=== PATIENT | female | born 1945 | race Caucasian/White ===

== ENCOUNTER → 2019-07-06 07:44 | Outpatient (CLI) | payer MEDICARE, OTHER, SELFPAY ==
--- NOTE | ~2019-07-06 | MR_ITS ---
EXAMINATION: MR shoulder LT wo con DATE: 07/06/2019 08:35 INDICATION: Left shoulder pain. TECHNIQUE: Magnetic resonance imaging (MRI) of the left shoulder was performed without intravenous co ntrast. Sequences included axial PD-weighted FS FSE, coronal oblique PD-weighted FS FSE and T2-weight ed FS FSE, and sagittal oblique T2-weighted FS FSE and T1-weighted FSE. COMPARISON: Left shoulder radiographs 03/10/2019 FINDINGS: Coracoacromial arch: The acromion undersurface is curved in morphology (type II). Subacromial spurring is noted. There is moderate acromioclavicular joint osteoarthritis including inferiorly directed osteophytes. There is m oderate subacromial/subdeltoid bursitis. Rotator cuff: There is severe supraspinatus and infraspinatus tendinopathy. There is a full-thickness tear of supra spinatus tendon measuring 7 mm anterior to posterior by 12 mm proximal to distal. There is a bursal s ided tear of infraspinatus tendon measuring 2.5 cm proximal to distal by 3 mm anterior to posterior b y 20% tendon thickness including fluid tracking along the myotendinous junction. Teres minor tendon i s normal. There is moderate distal subscapularis tendinopathy. There is no asymmetric fatty atrophy o f the rotator cuff muscle bellies. Biceps tendon and glenoid labrum: Biceps tendon is in bicipital groove. There is a tear of superior labrum from 11:00 to 12:00 (SLAP te ar) Fluid: There is no glenohumeral joint effusion. Bones/cartilage: Glenoid cartilage is normal. Humeral head cartilage is normal. IMPRESSION: 1. Full-thickness rotator cuff tear. 2. SLAP tear. 3. Moderate acromioclavicular joint osteoarthritis. 4. Moderate subacromial/subdeltoid bursitis. Reviewed, dictated and finalized at location A.
== END ==
PROVIDERS: Visit Provider Orthopaedic Surgery
DX: S43.432A Superior glenoid labrum lesion of left shoulder, initial encounter (principal); X58.XXXA Exposure to other specified factors, initial encounter; M19.012 Primary osteoarthritis, left shoulder; M75.52 Bursitis of left shoulder
CPT/HCPCS: 73221

== ENCOUNTER 2019-11-07 10:56 | Outpatient (CLI) | payer MEDICARE, OTHER, SELFPAY ==
--- NOTE | ~2019-11-07 | XR_ITS ---
EXAMINATION: XR chest 2V DATE: 11/07/2019 11:32 INDICATION: Hypertension TECHNIQUE: Frontal and lateral views of the chest are obtained COMPARISON: 10/27/2016 FINDINGS: The lungs are free of acute opacities. There is no pleural effusion or pneumothorax. The ca rdiomediastinal silhouette is normal. There is mild thoracic spondylosis. Cholecystectomy clips are n oted. IMPRESSION: 1. No acute cardiopulmonary abnormality. Reviewed, dictated and finalized at location A.
--- NOTE | 2019-11-07 10:59 | ECG_ITS ---
Measurements Intervals [place] Rate: 71 P: 47 IN: 159 QRS: 26 QRSD: 84 T: 26 QT: 353 QTc: 385 Interpretive Statements SINUS RHYTHM DELAYED PRECORDIAL R/S TRANSITION BASELINE ARTIFACT- I, III, AVR, AVL, AVF BORDERLINE ECG Electronically Signed On 11-07-2019 11:58:12 CDT by Ronan Juares D.O.
[2019-11-07 11:55] LABS: Anion Gap 9.9 mmol/L (7-16); Blood Urea Nitrogen 27 mg/dL (7-17); Calcium 10.5 mg/dL (8.4-10.2); Carbon Dioxide 33 mmol/L (22-30); Chloride 101 mmol/L (98-107); Estimated Glomerular Filt Rate 54; Glucose 104 mg/dL (65-105); Potassium 4.9 mmol/L (3.4-5.0); Sodium 139 mmol/L (137-145)
== END 2019-11-07 10:57 | disposition home or self-care (01) ==
LOC: ANHSURGERY 10:59
PROVIDERS: Anesthesiology; PCP Family Medicine; Visit Provider Orthopaedic Surgery
DX: Z01.818 Encounter for other preprocedural examination (principal); I10 Essential (primary) hypertension; M75.102 Unspecified rotator cuff tear or rupture of left shoulder, not specified as traumatic
CPT/HCPCS: 36415; 71046; 80048; 87070; 93005

== ENCOUNTER 2019-11-11 02:52 | Outpatient (CLI) | payer MEDICARE, OTHER, SELFPAY ==
[2019-11-11 18:58] LABS: SARS-CoV-2 RNA PCR Negative
== END 2019-11-11 02:53 | disposition home or self-care (01) ==
LOC: ANHCOVIDDT 02:52
PROVIDERS: PCP Family Medicine; Visit Provider Orthopaedic Surgery
DX: Z01.812 Encounter for preprocedural laboratory examination (principal); Z11.59 Encounter for screening for other viral diseases
CPT/HCPCS: 87635; C9803; U0003

== ENCOUNTER 2019-11-14 00:22 | Day surgery (SDC) | payer MEDICARE, OTHER, SELFPAY ==
[2019-11-07 08:38] VITALS: BMI 25.4
--- NOTE | 2019-11-11 11:25 | HP_ITS ---
DATE OF SERVICE: ADMIT DIAGNOSIS: Medium to large size rotator cuff tear, left shoulder. HISTORY OF PRESENT ILLNESS: The patient is a 74-year-old female patient of Dr. Scott, who presents today for arthroscopy of the left shoulder, mini open rotator cuff repair, possible biceps tenotomy. She injured her shoulder initially approximately 11 months ago and has been having continued pain in the shoulder. She had an MRI scan in July of this year, which demonstrated a moderately large tear of the supraspinatus and infraspinatus tendon. She did have a cortisone injection prior to the MRI. She has also gone through physical therapy and has been taking anti-inflammatories, all without improvement of her symptoms. She is somewhat miserable on a daily basis with pain in her shoulder and feels at this point she would rather proceed with rotator cuff repair, rather continue nonsurgical treatment. PAST MEDICAL HISTORY: She has had rotator cuff repair done on the right shoulder in the past. She has had carpal tunnel surgery done. The gallbladder has been removed and she has had a partial knee replacement in 2012. CURRENT MEDICATIONS: She takes a baby aspirin daily. She takes Aleve daily. Clonazepam 1 mg 2 tablets q.h.s., levothyroxine 100 mcg daily, losartan/HCTZ 100/12.5 daily, omeprazole 20 mg daily, Ropinirole 0.25 mg. ALLERGIES: SHE IS ALLERGIC TO SULFA DRUGS, WHICH CAUSED HER FACIAL SWELLING. FAMILY HISTORY: Significant for kidney disease and hypertension disorder. SOCIAL HISTORY: She is a nonsmoker. PHYSICAL EXAMINATION: VITAL SIGNS: She is 4 feet 10 inches, 138 pounds. Other vital signs per nursing on the morning of surgery. HEENT: Grossly normal. LUNGS: Clear bilaterally. HEART: Regular rate and rhythm. EXTREMITIES: Her left shoulder, there is elevation of 150, external rotation is 60, internal rotation is to T10. She has some degree of protracted shoulders and upper thoracic kyphosis. Normal sensation of the left upper extremity. No redness or warmth about the left shoulder. Neck range of motion causes no discomfort. Negative Spurling's maneuver. 2+ radial pulse. She has [id number] weakness with abduction with significant pain and mild weakness with external rotation. The AC joint is nontender. IMAGING DATA: MRI scan again shows a moderate to large full-thickness tear involving the supraspinatus and also the infraspinatus. IMPRESSION: The patient has a full-thickness rotator cuff tear of left shoulder that continues to be very symptomatic for her. She feels this point she would like to proceed with repair. Surgical procedure as well as risks and complications were discussed. All questions were answered. We will proceed. She will avoid her aspirin and any other ibuprofen products 1 week prior to surgery. She will see Dr. Scott for presurgical clearance. Dr. Coker did discuss with her given the size of the tear, we may need to use a patch to augment the repair and this will be determined at the time of surgery. Also, her biceps is significantly frayed. We will do a biceps tenotomy rather than a tenodesis. Aime I MT: Reilly
[2019-11-14] VITALS (12 sets, daily range): BP systolic 93–181; BP diastolic 42–107; PULSE 66–104; RESP 10–20; TEMP 36.1–36.2; O2SAT 95–100
[2019-11-14] MEDS: ACETAMINOPHEN 500 MG TABLET 1000 MG PO (06:30)
[2019-11-14] MEDS: LACTATED RINGERS 1,000 ML 30 ML IV CONT ×2 (06:35→09:58)
--- NOTE | 2019-11-14 06:36 | WPDANESEPPF ---
Anes - Initial Pre Proc Eval Procedure: Operation Date: 11/14/19 07:30 Proposed Procedures p Left Shoulder Arthroscopy, Mini Open Rotator Cuff Repair, Possible Biceps Tenotomy, Possible Arthrex Arthroflex Patch, Proceed As Indicated - Farhan Buck MD Date/Time: 11/14/19 06:36 Surgeon: Farhan Buck MD Pre Op Diagnosis: Medium/Large Left Rotator Cuff Tear/ AC Arthritis Patient Data Age: 74 Gender: F Height: 5 ft Weight: 63.3 kg Allergies Allergy/AdvReac Type Severity Reaction Status Date / Time Iodinated Contrast Media Allergy Intermediate HIVES, Verified 11/07/19 09:11 TONGUE SWELLED amoxicillin Allergy Unknown Itching Verified 11/07/19 08:19 simvastatin Allergy Unknown severe Verified 11/07/19 08:19 muscle cramps Sulfa (Sulfonamide Allergy Unknown tongue Verified 11/07/19 08:19 Antibiotics) swelling Home Medications Medication Instructions Recorded Confirmed Type cholecalciferol (vitamin D3) 25 1,000 unit PO DAILY 03/09/19 11/07/19 History mcg (1,000 unit) capsule melatonin 10 mg capsule 10 mg PO HS 03/09/19 11/07/19 History omeprazole 40 mg capsule,delayed 40 mg PO DAILY 03/09/19 11/07/19 History release pyridoxine (vitamin B6) 100 mg 100 mg PO DAILY 03/09/19 11/07/19 History tablet estradiol 1 mg tablet 1 mg PO DAILY #90 tablet 06/07/19 11/07/19 Rx tramadol 50 mg tablet 100 mg PO Q6H PRN #60 tablet 07/22/19 11/07/19 Rx gabapentin 300 mg capsule 600 mg PO .QHS #180 cap 08/10/19 11/07/19 Rx levothyroxine 100 mcg tablet 100 mcg PO DAILY #90 tablet 10/03/19 11/07/19 Rx aspirin [Adult Low Dose Aspirin] 81 mg PO DAILY 11/07/19 11/07/19 History budesonide-formoterol [Symbicort] 2 puff INHALATION PRN PRN 11/07/19 11/07/19 History calcium carbonate-vitamin D3 1 tablet PO DAILY 11/07/19 11/07/19 History [Calcium 600 + D(3)] fenofibrate 160 mg PO HS 11/07/19 11/07/19 History losartan-hydrochlorothiazide 1 tablet PO DAILY 11/07/19 11/07/19 History magnesium 1,000 mg PO HS 11/07/19 11/07/19 History clonazepam 1 mg tablet 2 mg PO HS #60 tablet 11/08/19 Rx Patient hx anesthesia problems: post op nausea/vomiting Family hx anesthesia problems: none PMFSH Past Medical History Medical History Asthma Essential (primary) hypertension Hypothyroidism (acquired) Mixed hyperlipidemia Restless legs syndrome Surgical History Surgical History H/O arthroscopy of right knee History of appendectomy History of carpal tunnel release History of knee replacement Hx of cholecystectomy Hx of tonsillectomy Family History Family History Mother Family history of glaucoma Hypertension Family history of kidney disease Cerebrovascular accident Family history of coronary artery disease Sibling Malignant neoplasm of prostate Family history of coronary artery disease Family history of cardiovascular disease Family history of kidney disease Grandparent Family history of coronary artery disease Family history of cardiovascular disease Social History Social History Smoking status: Never smoker Alcohol intake: never Living arrangements: with family Spiritual care concerns: No Anes - Eval Final PreProcedure Day of Procedure 11/14/19 06:36 Patient weight: overweight Heart: regular rate and rhythm Lungs: clear to auscultation Airway: Mallampati scale class 1 Neurological: alert and oriented Last oral intake: >/= 8 hours ASA classification: III Emergent: no Anesthetic plan: proceed Anesthesia type and monitoring: general ETT and standard monitoring Informed Consent: The patient's anesthetic plan and its attendant risks and benefits were discussed with the patient/family/POA. Questions were solicited and answers provided to the satisfaction o
--- NOTE | 2019-11-14 07:09 | WPDHPUPDATE1 ---
History and Physical Update Update Date/Time: 11/14/19 07:09 History and Physical has been reviewed, including an updated exam of the patient. There are NO changes in the patient's condition. Risks, benefits, and alternatives have been discussed and questions answered. Patient agrees to proceed with procedure.
--- NOTE | 2019-11-14 07:14 | WPDHPUPDATE1 ---
History and Physical Update Update Date/Time: 11/14/19 07:14 History and Physical has been reviewed, including an updated exam of the patient. There are NO changes in the patient's condition. Risks, benefits, and alternatives have been discussed and questions answered. Patient agrees to proceed with procedure.
[2019-11-14] MEDS: ceFAZolin 2 GM/D5W 50 ML 2 GM/50 ML BAG IVPB (07:29)
--- NOTE | 2019-11-14 07:49 | WPDANESPNB ---
Anes - Peripheral Nerve Block Date/Time: 11/14/19 07:49 I have discussed with the patient/family/POA the placement of a peripheral nerve block for post-operative pain management, including associated risks, benefits, complications, and side effects. Alternative methods of post-operative analgesia were detailed. Questions were solicited and answers provided to the satisfaction of the patient/family/POA. Time-Out: A pre-procedural Time-Out was completed immediately before starting the procedure and confirmed: Patient Identification, Site, Procedure, Patient Position and the Availability of Requisite Equipment. Clinical Indications: Acute post-operative pain management requested by the operative surgeon. Nerve Block Insertion Note Anes-nerve block: interscalene left Patient position: other (sitting) Skin prep: chlorhexidine Needle: 22 gauge, stimulating, insulated echogenic needle. Needle length: 50 mm Technique: nerve stimulation lost at (mA) (0.3) and ultrasound Technique comment: mid 1mg,fent 50mcg Injectate: bupivacaine 0.5% with epi 5 mcg/ml (30ml) and dexamethasone (mg) (4) Observations: tolerated well Complications: none Procedure start time:: 714 Procedure end time:: 721
[2019-11-14] MEDS: ceFAZolin SODIUM 1 GM VIAL IRRIGATION ×3 (08:19→09:43)
[2019-11-14] MEDS: ceFAZolin SODIUM 1 GM VIAL IV PUSH (09:40)
--- NOTE | 2019-11-14 09:57 | PM.PROC ---
Procedure Note - Detailed Date of procedure: 11/14/19 Pre-op diagnosis: Medium/Large Left Rotator Cuff Tear/ AC Arthritis Post-op diagnosis: same Procedure performed: Arthroscopic biceps tenotomy and arthroscopic acromioplasty mini open rotator cuff repair left shoulder Description of procedure: patient was brought to the operating room and general anesthesia was administered. She received an interscalene block preoperatively. She was placed in the beach chair position the head secured in neutral position. The left shoulder was prepped draped usual fashion all the skin covered with Ioban except the top portion. She received weight based vancomycin 2 g of Ancef preoperatively. A posterior arthroscopic portal was placed. She did have some chondromalacia of the superomedial aspect of the humeral head. The articular surface on the glenoid looked normal. There was partial tearing of the intra-articular portion of the long head of the biceps with enlargement as it entered the bicipital groove and I felt this represented a significant pain generator. An anterior superior portal was placed and with the 3.5 full radius shaver labral tearing was debrided and a biceps tenotomy was performed adjacent to the glenoid insertion completing this with the arthroscopic scissors and the long head of the biceps migrated distally. The tear of the supraspinatus and upper infraspinatus was noted. It was torn from the supraspinatus footprint of the greater tuberosity and mildly retracted medially. Arthroscope was placed in the subacromial space. There is quite a bit of synovitis and bursal inflammation there and a bursectomy was performed after placing an anterior outflow portal and hemostasis achieved with the ArthroCare. The CA ligament was ablated from the anterior surface of the undersurface the acromion and there is a small spur there that was conservatively debrided with the less aggressive acromion eyes are bur on reverse. The remaining skin was covered with Ioban and outer gloves changed. A 1/2 inch longitudinal incision was made from the superior aspect of anterior acromion extending distally and the tendinous raphe between anterior and middle heads of the deltoid identified and incised. She had an overhanging acromion and to expose the tear appropriately 1 cm of anterior deltoid was elevated off the anterior acromion. Self-retaining retractor was placed. The tear was inspected. It was an L-shaped tear or a hockey stick shaped tear with a transverse component from the anterior aspect of the greater tuberosity extending posteriorly approximately 15 mm and then angling posteromedially for another 5 or 6 mm. This last portion was a tendon split. The 1st Arthrex suture tapes was placed in the supraspinatus tendon and we freed the sub acromial adhesions with a Darrach elevator. This improved the mobilization of the tendon which was excellent and a could be brought well past the insertion site. A 2nd suture tape was placed and using the [employer] suture Passer to obtain a 16 mm bite and this was paid placed about 9 mm posterior to the 1st suture and we used a 2. Ethibond to shuttle these 2 stitches through the greater tuberosity. Prior to this we had carefully prepared the tuberosity scraping the clean of all residual soft tissues with a clean 15 blade scalpel and made taking multiple jeremie holes and a 2 mm bur adjacent to articular surface. Who with the 2 suture tapes tied this restored anatomic repositioning of the rotator cuff. We then used multiple a 2. Ethibond placed in simple fashion in a convergent pattern to create a spherical smooth repair. Approximately 6 additional 2. Ethibond so were placed. The arm was taken through range of motion in the adequacy of the acromioplasty confirmed. The wound was irrigated with Ancef solution. 2 number 2. Vicryls were passed through the anterior acromion and the deltoid was securely reattached to the anterior acromion and the split closed wi
[2019-11-14] MEDS: ONDANSETRON INJ 4 MG/2 ML VIAL IV PUSH (10:44)
[2019-11-14] MEDS: diphenhydrAMINE HCl INJ 50 MG/ML VIAL 25 MG IV PUSH (11:00)
== END 2019-11-14 13:47 | disposition home or self-care (01) ==
PROVIDERS: PCP Family Medicine; Visit Provider Orthopaedic Surgery
PROC: (CPT 29805; principal; 2019-11-14 07:30)
DX: S46.012A Strain of muscle(s) and tendon(s) of the rotator cuff of left shoulder, initial encounter (principal); M19.012 Primary osteoarthritis, left shoulder; X58.XXXA Exposure to other specified factors, initial encounter; I10 Essential (primary) hypertension; E78.2 Mixed hyperlipidemia; E03.9 Hypothyroidism, unspecified; J45.909 Unspecified asthma, uncomplicated; G25.81 Restless legs syndrome; Z79.82 Long term (current) use of aspirin; G89.18 Other acute postprocedural pain
CPT/HCPCS: 23410; 29823; 64415; A4565; A9270; J0690; J1100; J1200; J2250; J2370; J2405; J2704; J2710; J3010; J3370; J7120

== ENCOUNTER 2020-01-31 12:53 | Outpatient (CLI) | payer MEDICARE, OTHER, SELFPAY ==
--- NOTE | ~2020-01-31 | MR_ITS ---
EXAMINATION: MR shoulder LT w con DATE: 01/31/2020 14:39 INDICATION: Left shoulder pain and weakness TECHNIQUE: Magnetic resonance imaging (MRI) of the left shoulder was performed following intra-artic ular gadolinium contrast injection and without intravenous contrast. Details of the glenohumeral join t injection have been dictated separately. Sequences included axial T2-weighted FS FSE, axial T1-david ghted FS FSE, coronal oblique T1-weighted FS FSE, coronal oblique T2-weighted FSE, sagittal T2-weight ed FS FSE, sagittal T1-weighted FSE, and ABER (abduction external rotation) T1-weighted FS FSE. COMPARISON: 07/06/2019 FINDINGS: Coracoacromial arch: The acromion undersurface is curved in morphology (type II). The acromion however now appears thinned when compared with the prior study with foci of susceptibility artifact along its anterior and infer ior margins consistent with prior acromioplasty including debridement of the acromial side of the cor acoacromial ligament. Moderate acromioclavicular osteoarthritis. Rotator cuff: Severe supraspinatus and moderate infraspinatus tendinopathy. Changes of interval repair of the previ ously noted supraspinatus and infraspinatus tendon tears with suture anchors along the superior and m iddle facets of the greater tuberosity. There is mild attenuation of the distal supraspinatus tendon but without evident detachment of the repair. Although no full-thickness tear defect is appreciated t here is extension of injected contrast through the repaired tear with the injected intra-articular co ntrast extending into the subacromial/subdeltoid bursa. Moderate subscapularis tendinopathy without d iscrete tear. The teres minor tendon is normal. No asymmetric rotator cuff muscle atrophy. Biceps tendon, glenoid labrum and glenohumeral cartilage: Biceps tenotomy with resection of the tendon from its glenoid anchor and retraction of the tenotomy m argin to the caudal aspect of the intertubercular groove. Partial-thickness cartilage loss with mild chondral surface regularity along the apex of the humeral head. Glenoid cartilage appears normal. Bones and other: Bone alignment is normal. No fracture or pathologic marrow replacing process. Postoperative changes p reviously detailed. Additional foci of susceptibility artifact along a longitudinal likely surgical s car extending between the anterior and central heads of the deltoid muscle. IMPRESSION: 1. Postoperative changes of supraspinatus and infraspinatus tendon tear repair with mild attenuation of the distal supraspinatus tendon and with full-thickness perforation allowing communication of cont rast between the joint space and the subacromial/subdeltoid bursa but without evident detachment of t he repair or measurable full-thickness tear defect. 2. Biceps tenotomy with retraction of the tenotomy margin to the caudal aspect of the intertubercular groove. 3. Moderate acromioclavicular and minimal glenohumeral osteoarthritis. Reviewed, dictated and finalized at location B. IMPRESSION: 1. Postoperative changes of supraspinatus and infraspinatus tendon tear repair with mild attenuation of the distal supraspinatus tendon and with full-thicknes s perforation allowing communication of contrast between the joint space and th e subacromial/subdeltoid bursa but without evident detachment of the repair or measurable full-thickness tear defect. 2. Biceps tenotomy with retraction of the tenotomy margin to the caudal aspect of the intertubercular groove. 3. Moderate acromioclavicular and minimal glenohumeral osteoarthritis.
--- NOTE | ~2020-01-31 | XR_ITS ---
EXAMINATION: XR arthrogram shoulder LT DATE: 01/31/2020 13:59 INDICATION: Left shoulder pain after rotator cuff repair. No prior dislocation. TECHNIQUE: A time-out was performed to verify the patient's name, date of , and procedure to b e performed. The procedure including the risks, benefits, and alternatives was discussed with the pat ient. Risks discussed included bleeding and infection. The patient understood the risks and agreed to proceed. The skin overlying the left glenohumeral joint was prepped and draped in usual sterile fash ion. Anesthetic was administered with 1% lidocaine subcutaneously. A 22 G needle was advanced under fluoroscopic guidance into the joint. Subsequently, injectate consisting of 12 mL of 1:200 Multihan ce, 1:4 1% lidocaine, and 1:4 Omnipaque 240 was instilled. The needle was removed and the entry site was cleaned and dressed. There were no immediate complications. Fluoroscopy exposure time was 0.1 m inutes. The total number of images was 2. FINDINGS: Real-time fluoroscopy demonstrates the needle and contrast in the left glenohumeral joint. IMPRESSION: 1. Successful left glenohumeral joint injection of contrast for subsequent MR arthrography. Reviewed, dictated and finalized at location A. IMPRESSION: 1. Successful left glenohumeral joint injection of contrast for subsequent MR a rthrography.
== END 2020-01-31 12:54 | disposition home or self-care (01) ==
PROVIDERS: PCP Family Medicine; Visit Provider Orthopaedic Surgery
DX: M25.512 Pain in left shoulder (principal); Z98.890 Other specified postprocedural states; M19.012 Primary osteoarthritis, left shoulder
CPT/HCPCS: 73040; 73222; A9577; Q9966

== ENCOUNTER 2020-07-12 06:30 | Outpatient (CLI) | payer MEDICARE, OTHER, SELFPAY ==
--- NOTE | ~2020-07-12 | XR_ITS ---
EXAMINATION: XR lumbar spine 2-3V EXAM DATE: 07/12/2020 06:57 INDICATION: Low back pain, inflammation of the sacroiliac joints bilaterally. TECHNIQUE: Lumber spine frontal, lateral, lateral L5-S1 projections for interpretation. Comparison is made to prior examination from 01/08/2016. FINDINGS: There are cholecystectomy clips. There is about 7 mm anterolisthesis L4 on L5 without spon dylolysis suspected. Moderate disc disease at this level, mild to moderate at L3-4 and L5-S1. The piedad tebral bodies are otherwise aligned. There is overall moderate lumbar facet arthropathy. There is mil d symmetric bilateral sacroiliac joint primary osteoarthritis. Paraspinal soft tissue is unremarkabl e. Compared to 2016, mild progression in the spondylolisthesis and spondylosis. IMPRESSION: 1. L4-5 grade 1 anterolisthesis and moderate disc disease. 2. Moderate facet arthropathy 3. Mild sacroiliac osteoarthritis. Reviewed, dictated and finalized at location A.
== END 2020-07-12 06:31 | disposition home or self-care (01) ==
PROVIDERS: PCP Family Medicine; Visit Provider Physician Assistant Medical
DX: M54.5 Low back pain (principal); M46.1 Sacroiliitis, not elsewhere classified; M43.16 Spondylolisthesis, lumbar region; M51.9 Unspecified thoracic, thoracolumbar and lumbosacral intervertebral disc disorder; M47.898 Other spondylosis, sacral and sacrococcygeal region
CPT/HCPCS: 72100

== ENCOUNTER 2020-07-19 10:19 | Outpatient (CLI) | payer MEDICARE, OTHER, SELFPAY ==
--- NOTE | ~2020-07-19 | XR_ITS ---
EXAMINATION: XR lumbar spine bending only DATE: 07/19/2020 10:46 INDICATION: Spondylolisthesis. TECHNIQUE: Flexion and extension lateral views of lumbar spine were obtained. COMPARISON: Lumbar spine radiograph 07/12/2020 FINDINGS: There is 6 mm anterolisthesis of L4 on L5. The spine is hypomobile with flexion and extensi on. Vertebral body heights are normal. There is mildly decreased disc height at L3-L4 and moderately decreased disc height at L4-L5. There are endplate osteophytes at most levels. There is severe facet joint osteoarthritis in lower lumbar spine. Surgical clips in the right upper quadrant are likely fro m cholecystectomy. IMPRESSION: 1. Moderate lumbar spondylosis. 2. Hypomobile spine with flexion and extension. Reviewed, dictated and finalized at location A.
== END 2020-07-19 10:20 | disposition home or self-care (01) ==
PROVIDERS: PCP Family Medicine; Visit Provider Physician Assistant Medical
DX: M47.816 Spondylosis without myelopathy or radiculopathy, lumbar region (principal)
CPT/HCPCS: 72120

== ENCOUNTER 2020-10-16 08:46 | Outpatient (CLI) | payer MEDICARE, OTHER, SELFPAY ==
--- NOTE | ~2020-10-16 | MM_ITS ---
EXAMINATION: MM screening [facility] BI w ranjit HISTORY: Screening mammogram TECHNIQUE: Craniocaudal and mediolateral oblique 3-D tomosynthesis images were obtained and synthetic 2-D images were generated. CAD analysis was submitted and interpreted. COMPARISON: 07/19/2018, 07/07/2017, 06/16/2016 BREAST PARENCHYMAL COMPOSITION: There are scattered areas of fibroglandular density. FINDINGS: There is no evidence of suspicious mass, calcification, or architectural distortion to sugg est malignancy in either breast. There has been no suspicious interval change. IMPRESSION: 1. No mammographic evidence of malignancy. 2. Recommend routine screening mammography in one year. BI-RADS Category 1: Negative Reviewed, dictated and finalized at location A.
== END 2020-10-16 08:47 | disposition home or self-care (01) ==
LOC: ANHIMG 08:48
PROVIDERS: PCP Family Medicine; Visit Provider Family Medicine
DX: Z12.31 Encounter for screening mammogram for malignant neoplasm of breast (principal)
CPT/HCPCS: 77063; 77067

== ENCOUNTER 2020-11-16 08:00 | Outpatient (CLI) | payer MEDICARE, OTHER, SELFPAY ==
--- NOTE | ~2020-11-16 | MR_ITS ---
EXAMINATION: MR hip LT wo con DATE: 11/16/2020 09:57 INDICATION: Left hip pain TECHNIQUE: Magnetic resonance imaging (MRI) of the left hip was performed without intravenous contra st. Sequences included full-field axial PD-weighted FS FSE and T1-weighted FSE, coronal of the pelvis with PD-weighted FS FSE, small field of view of the affected hip with axial PD-weighted FS FSE, sag ittal PD-weighted FS FSE and coronal PD weighted FS FSE. Additional radial T1-weighted FGR oriented o rthogonal to the acetabular rim were obtained for evaluation of the labrum. COMPARISON: None FINDINGS: Bones/labrum/cartilage: Alignment is normal. No fracture, avascular necrosis or pathologic marrow replacing process. There a re several scattered low signal intensity bone islands at the bilateral hips were numerous and larger on the left. Mild left hip osteoarthritis with partial thickness cartilage loss and nonuniform joint space narrowing most prominent along the posterior and posterosuperior aspect of the joint space. Th ere is degenerative tearing of the anterosuperior left acetabular labrum. Marginal osteophyte replaci ng the more posterior superior and posterosuperior left acetabular labrum. Moderate lower lumbar spon dylosis with severe facet osteoarthritis. Fluid: Symmetric physiologic amount of fluid within both hip joints. Soft tissues: Normal and symmetric muscle bulk and signal in the pelvis and visualized proximal thighs. The iliopso as tendons are normal. Mild tendinopathy without discrete tear at the bilateral proximal hamstring te ndons with minimal bilateral ischial bursitis. Mild tendinopathy of the right gluteus minimus and lef t gluteus medius tendons and moderate tendinopathy at the left gluteus minimus tendon without discret e tear. Severe mild bilateral gluteus minimus and left gluteus medius bursitis. The uterus is not carmencita ntified and has likely been surgically resected. There are few diverticula along the sigmoid colon wi thout adjacent inflammatory change to suggest diverticulitis. No pathologically enlarged pelvic/ingui nal lymphadenopathy. IMPRESSION: 1. Mild left hip osteoarthritis with chronic labral degeneration. 2. No bursitis and associated tendinopathy, moderate at the left gluteus minimus and mild at the righ t gluteus minimus, left gluteus medius and bilateral ischial origins of the proximal hamstring tendon s. 3. Moderate lower lumbar spondylosis. Reviewed, dictated and finalized at location A. IMPRESSION: 1. Mild left hip osteoarthritis with chronic labral degeneration. 2. No bursitis and associated tendinopathy, moderate at the left gluteus minimu s and mild at the right gluteus minimus, left gluteus medius and bilateral isch ial origins of the proximal hamstring tendons. 3. Moderate lower lumbar spondylosis.
--- NOTE | ~2020-11-16 | MR_ITS ---
EXAMINATION: MR lumbar spine wo con DATE: 11/16/2020 09:57 INDICATION: Dorsalgia, unspecified. TECHNIQUE: Magnetic resonance imaging (MRI) of the lumbar spine was performed without intravenous con trast. Sequences included sagittal T2-weighted FSE, sagittal T2-weighted FS FSE, sagittal T1-weighted FSE, and axial T2-weighted FSE. COMPARISON: Lumbar spine radiographs 07/19/2020 FINDINGS: There is 4 degrees dextrocurvature of lumbar spine. Vertebral body heights are normal. Ther e is moderately decreased disc height at L3-L4 and L4-L5. The distal spinal cord signal intensity is normal. The conus medullaris is at T12. There is a 19 mm cyst in right kidney. The following disc lev els are specifically discussed: L1-L2: The disc does not extend beyond the endplate margin. There is mild bilateral facet joint osteo arthritis. There is no neural foraminal stenosis. There is no central canal stenosis. L2-L3: There is a right foraminal extrusion. There is mild bilateral facet joint osteoarthritis. Ther e is mild right neural foraminal stenosis. There is no central canal stenosis. L3-L4: The disc is bulging and has an annular fissure. There is severe bilateral facet joint osteoart hritis. There is mild bilateral neural foraminal stenosis. There is mild central canal stenosis. L4-L5: The disc is bulging and has an annular fissure. There is severe bilateral facet joint osteoart hritis. There is mild bilateral neural foraminal stenosis. There is mild central canal stenosis. L5-S1: The disc does not extend beyond the endplate margin. There is severe bilateral facet joint ost eoarthritis. There is mild left neural foraminal stenosis. There is no central canal stenosis. IMPRESSION: 1. Moderate lumbar spondylosis. Reviewed, dictated and finalized at location A.
== END 2020-11-16 08:01 | disposition home or self-care (01) ==
PROVIDERS: PCP Family Medicine; Visit Provider Family Medicine
DX: M17.12 Unilateral primary osteoarthritis, left knee (principal); M70.72 Other bursitis of hip, left hip; M47.817 Spondylosis without myelopathy or radiculopathy, lumbosacral region; M48.07 Spinal stenosis, lumbosacral region
CPT/HCPCS: 72148; 73721

== ENCOUNTER 2020-11-25 08:24 | Emergency (ER) | payer MEDICARE, OTHER, SELFPAY ==
--- NOTE | ~2020-11-25 | XR_ITS ---
XR chest 2V DATE: 11/25/2020 08:45 INDICATION: Cough, shortness of breath. Rhonchi in both lower lobes. TECHNIQUE: 2 views COMPARISON: 11/24/2019 2 view chest FINDINGS: Normal heart size. No hilar or mediastinal enlargement. Aortic arch calcification. Bilateral hyperinflation. No pulmonary infiltrate or consolidation, pleural effusion or pulmonary vas cular congestion or pneumothorax. Diffuse osteopenia. There is resection of the lateral aspect of the right clavicle. Surgical clips sclerotic quadrant, consistent with cholecystectomy. IMPRESSION: Bilateral hyperinflation; no active cardiopulmonary disease No significant change since 11/07/2019 Reviewed, dictated and finalized at location A.
[2020-11-25 08:30] VITALS: BP 125/83; PULSE 95; RESP 24; TEMP 37.3; O2SAT 96
--- NOTE | 2020-11-25 08:36 | ED.URI ---
HPI - URI/Sore Throat General Chief Complaint: Upper Respiratory Infection Stated Complaint: Coughing and shortness of breath Time Seen by Provider: 11/25/20 08:30 Source: patient and RN notes reviewed Mode of arrival: ambulatory Limitations: no limitations History of Present Illness HPI Narrative: 75-year-old female presents to the [facility] with complaints of increasing shortness of breath and increasing productive cough since , 3 days ago. Denies fevers, chest pain, abdominal pain. Has a history of hypertension, asthma, thyroid disease Related Data Home Medications Medication Instructions Recorded Confirmed cholecalciferol (vitamin D3) 25 1,000 unit PO DAILY 03/09/19 11/25/20 mcg (1,000 unit) capsule melatonin 10 mg capsule 10 mg PO HS 03/09/19 11/25/20 omeprazole 40 mg capsule,delayed 40 mg PO DAILY 03/09/19 11/25/20 release pyridoxine (vitamin B6) 100 mg 100 mg PO DAILY 03/09/19 11/25/20 tablet aspirin [Adult Low Dose Aspirin] 81 mg PO DAILY 11/07/19 11/25/20 budesonide-formoterol [Symbicort] 2 puff INHALATION PRN PRN 11/07/19 11/25/20 calcium carbonate-vitamin D3 1 tablet PO DAILY 11/07/19 11/25/20 [Calcium 600 + D(3)] magnesium 1,000 mg PO HS 11/07/19 11/25/20 Allergies Allergy/AdvReac Type Severity Reaction Status Date / Time Iodinated Contrast Media Allergy Intermediate HIVES, Verified 11/25/20 08:30 TONGUE SWELLED amoxicillin Allergy Unknown Itching Verified 11/25/20 08:30 simvastatin Allergy Unknown severe Verified 11/25/20 08:30 muscle cramps Sulfa (Sulfonamide Allergy Unknown tongue Verified 11/25/20 08:30 Antibiotics) swelling Review of Systems Review of Systems: All systems reviewed & are unremarkable except as noted in HPI and below Constitutional: Constitutional: Reports no additional constitutional complaints, Denies chills and Denies fever(s) Eyes: Eyes: Reports no additional eye complaints ENT: Reports system reviewed and no additional complaints, except as documented, Denies dysphagia, Denies dizziness, Denies nasal congestion and Denies sore throat Cardiovascular: Cardiovascular: Reports as per HPI and Reports chest pain (Chest wall pain only when coughing) Respiratory: Respiratory: Reports as per HPI, Reports cough, Reports dyspnea and Denies wheezing Gastrointestinal: Gastrointestinal: Reports no additional gastrointestinal complaints, Denies abdominal pain and Denies vomiting Musculoskeletal: Musculoskeletal: Reports no additional musculoskeletal complaints, Denies back pain and Denies myalgias Integumentary/Breasts: Skin/Breast: Reports system reviewed and no additional complaints, except as docu Neurologic: Reports system reviewed and no additional complaints, except as documented Psychiatric: Psychiatric: Reports no additional psychiatric complaints Allergic/Immunologic: Allergic/Immunologic: Reports no additional allergic/immunologic complaints [facility] Past Medical History Medical History Asthma Essential (primary) hypertension Hypothyroidism (acquired) Mixed hyperlipidemia Restless legs syndrome Surgical History Surgical History H/O arthroscopy of right knee History of appendectomy History of carpal tunnel release History of knee replacement History of repair of rotator cuff Hx of cholecystectomy Hx of tonsillectomy Family History Family History Mother Family history of glaucoma Hypertension Family history of kidney disease Cerebrovascular accident Family history of coronary artery disease Sibling Malignant neoplasm of prostate Family history of coronary artery disease Family history of cardiovascular disease Family history of kidney disease Grandparent Family history of coronary artery disease Family history of cardiovascular disease Social History Social History
== END 2020-11-25 09:05 | disposition home or self-care (01) ==
PROVIDERS: Emergency Provider Nurse Practitioner; PCP Family Medicine
DX: J40 Bronchitis, not specified as acute or chronic (principal); J45.909 Unspecified asthma, uncomplicated; I10 Essential (primary) hypertension; E03.9 Hypothyroidism, unspecified; G25.81 Restless legs syndrome
CPT/HCPCS: 71046; 99213; G0463

== ENCOUNTER 2021-02-25 07:46 | Outpatient (CLI) | payer MEDICARE, OTHER, SELFPAY ==
--- NOTE | 2021-02-25 | ECG_ITS ---
Measurements Intervals [place] Rate: 72 P: 54 DE: 165 QRS: 28 QRSD: 82 T: 37 QT: 353 QTc: 387 Interpretive Statements SINUS RHYTHM BASELINE ARTIFACT- I, II, AVR, AVL NORMAL ECG Electronically Signed On 02-25-2021 8:36:31 [employer] by Rnoan Juares D.O.
--- NOTE | ~2021-02-25 | XR_ITS ---
EXAMINATION: XR chest 2V DATE: 02/25/2021 08:09 INDICATION: Hypertension. Preop. TECHNIQUE: Frontal and lateral views of the chest were obtained. COMPARISON: Chest 2 views 11/25/2020 FINDINGS: There is mild atelectasis in lingula. No pleural effusion or pneumothorax. The heart size i s normal. Surgical clips in the right upper quadrant are likely from cholecystectomy. IMPRESSION: 1. Mild atelectasis in lingula. Reviewed, dictated and finalized at location B. 'S [employer]
== END 2021-02-25 07:47 | disposition home or self-care (01) ==
LOC: ANHIMG 07:51
PROVIDERS: PCP Family Medicine
DX: Z01.818 Encounter for other preprocedural examination (principal); I10 Essential (primary) hypertension; J98.11 Atelectasis
CPT/HCPCS: 71046; 93005

== ENCOUNTER 2021-10-03 09:45 | Outpatient (CLI) | payer MEDICARE, OTHER, SELFPAY ==
--- NOTE | ~2021-10-03 | XR_ITS ---
EXAMINATION: XR chest 2V 10/03/2021 10:20 INDICATION: Cough. History of asthma. PROCEDURE: 2 view chest COMPARISON: Comparison to multiple prior studies sequentially, with oldest reviewed study dated 10/27. FINDINGS: The lungs are clear. The cardiomediastinal silhouette is within normal limits. There are no pleural effusions. There is no pneumothorax suspected. There are cholecystectomy clips. IMPRESSION: 1: NO ACUTE CARDIOPULMONARY DISEASE. Reviewed, dictated and finalized at location A.
== END 2021-10-03 09:46 | disposition home or self-care (01) ==
PROVIDERS: PCP Family Medicine; Visit Provider Family Medicine
DX: R05.9 Cough, unspecified (principal)
CPT/HCPCS: 71046

== ENCOUNTER 2021-10-30 08:13 | Outpatient (CLI) | payer MEDICARE, OTHER, SELFPAY ==
--- NOTE | 2021-10-30 09:19 | ECHO_ITS ---
Patient Info Name: Cheri Nath Age: 75 years : 1945 Gender: Female Ht: 59 in Wt: 128 lbs BSA: 1.57 m2 HR: 78 bpm BP: 169 / 90 mmHg Technical Quality: Good Exam Date: 10/30/2021 10:00 AM Exam Location: [facility] Patient Status: Outpatient Admit Date: 10/30/2021 Staff Ordering Physician: Mariana Esteban PA-C Divorce Attorney: Jessica Belcher RDCS Attending Provider: Mariana Esteban PA-C Referring Physician: Carlito JAVIER; Exam Type: CA echo doppler color flow Study Info Indications - other specified soft tissue disorders Complete two-dimensional, color flow and Doppler transthoracic echocardiogram is performed. Summary 1. Complete two-dimensional, color flow and Doppler transthoracic echocardiogram is performed. 2. Left ventricular chamber dimension is normal. 3. Left ventricular systolic function is normal, estimated at 60-65%. 4. The left ventricular diastolic function is grade II diastolic dysfunction. 5. E/e' 17 is elevated. 6. Global longitudinal strain is abnormal at -15.9%. 7. The mitral valve has mildly calcified annulus. 8. There is mild mitral valve regurgitation. 9. There is trace tricuspid valve regurgitation. 10. No pulmonary hypertension, estimated pulmonary arterial systolic pressure is 35 mmHg. Left Ventricle E/e' 17 is elevated. Global longitudinal strain is abnormal at -15.9%. Left ventricular chamber dimension is normal. Left ventricular systolic function is normal, estimated at 60-65%. The left ventricular diastolic function is grade II diastolic dysfunction. Right Ventricle Right ventricular systolic function is normal and with normal TAPSE 2.0 cm. Right ventricular chamber dimension is normal. Left Atria Left atrial chamber dimension is normal. Right Atria Right atrial chamber dimension is normal. Aortic Valve The aortic valve is trileaflet. There is no aortic valve stenosis. There is no aortic valve regurgitation. Pulmonic Valve There is no pulmonic regurgitation. Mitral Valve The mitral valve has mildly calcified annulus. There is no mitral valve stenosis. There is mild mitral valve regurgitation. Tricuspid Valve There is trace tricuspid valve regurgitation. No pulmonary hypertension, estimated pulmonary arterial systolic pressure is 35 mmHg. Pericardium/Pleural There is no pericardial effusion. Inferior Vena Cava Normal inferior vena cava with >50% collapse upon inspiration consistent with normal right atrial pressure, 5 mmHg. Aorta The aortic root size at the sinus of Valsalva is normal. Left Ventricular Outflow Tract Name Value Normal LVOT 2D LVOT Diameter 2.0 cm LVOT Doppler LVOT Peak Gradient 6 mmHg LVOT Mean Gradient 4 mmHg LVOT VTI 27 cm LVOT VTI/AV VTI Ratio 0.9 LVOT Stroke Volume 81 ml LVOT CO 17.7 l/min LVOT CI 11.3 l/min/m2 Pulmonic Valve
== END 2021-10-30 08:14 | disposition home or self-care (01) ==
PROVIDERS: PCP Family Medicine; Visit Provider Physician Assistant
DX: I11.0 Hypertensive heart disease with heart failure (principal); I50.22 Chronic systolic (congestive) heart failure; M79.89 Other specified soft tissue disorders; I34.0 Nonrheumatic mitral (valve) insufficiency
CPT/HCPCS: 93306

== ENCOUNTER 2021-12-11 13:11 | Emergency (ER) | payer MEDICARE, OTHER, SELFPAY ==
--- NOTE | ~2021-12-11 | XR_ITS ---
EXAMINATION: XR chest 2V Exam Date/Time: 12/11/2021 14:50 CDT HISTORY: HTN, SOB. Comparison: 10/03/2021. RESULT: Lines, tubes, and devices: Partially visualized lumbar fusion hardware. Cholecystectomy clips. Lungs and pleura: Clear. Cardiomediastinal silhouette: Stable. Other: No acute osseous or upper abdominal finding. IMPRESSION: No acute cardiopulmonary process. Reviewed, dictated and finalized at location K.
--- NOTE | ~2021-12-11 | US_ITS ---
EXAMINATION: US venous doppler [facility] DATE: 12/11/2021 14:52 INDICATION: Lower limb swelling. TECHNIQUE: Grayscale ultrasound images without and with compression and Doppler ultrasound images of the bilateral lower extremity veins were obtained. COMPARISON: None. FINDINGS: The visualized portions of right common femoral vein, profunda (deep) femoral vein, femoral vein, pop liteal vein, peroneal veins, posterior tibial veins, and greater saphenous vein outflow are patent. The visualized portions of left common femoral vein, profunda femoral vein, femoral vein, popliteal v ein, peroneal veins, posterior tibial veins, and greater saphenous vein outflow are patent. IMPRESSION: 1. No deep venous thrombosis. Reviewed, dictated and finalized at location A.
--- NOTE | ~2021-12-11 | CT_ITS ---
EXAMINATION: CT brain wo con DATE: 12/11/2021 16:58 INDICATION: dizziness, elevated BP (>240 systolic) . TECHNIQUE: Computed tomography (CT) of the head was performed without intravenous contrast. The mA wa s adjusted according to patient size. Iterative reconstruction technique was employed. The dose-lengt h product was 605.33 mGy-cm. COMPARISON: None FINDINGS: No acute intracranial hemorrhage or extra-axial fluid collection. No hydrocephalus, mass, or herniation. No acute ischemic infarct. Unremarkable dural venous sinus attenuation. No acute osseous abnormality. The aerated spaces are clear. Mild atrophy and chronic white matter change. Atherosclerotic intracranial calcification. Basal gangl ia calcification. Bilateral lens replacements. IMPRESSION: No acute intracranial process. Reviewed, dictated and finalized at location K.
[2021-12-11 13:31] VITALS: BP 158/119; PULSE 83; RESP 14; TEMP 36.5; O2SAT 100
--- NOTE | 2021-12-11 13:37 | ECG_ITS ---
Measurements Intervals [place] Rate: 80 P: 56 WA: 139 QRS: 9 QRSD: 82 T: 6 QT: 357 QTc: 412 Interpretive Statements SINUS RHYTHM DELAYED PRECORDIAL R/S TRANSITION BASELINE ARTIFACT- I, II, III, AVR, AVL, AVF, V1-V6 BORDERLINE ECG COMPARED TO ECG 02/25/2021 08:33:41 NO SIGNIFICANT CHANGES Electronically Signed On 12-11-2021 15:07:32 CDT by Ronan Juares D.O.
[2021-12-11 14:07] LABS: Basophils Percent Auto 0.4 % (0.2-1.2); Eosinophils Absolute Auto 0.3 K/mm3 (0-0.3); Hematocrit 40.3 % (37.0-47.0); Hemoglobin 12.7 g/dL (12.0-15.0); Immature Granulocyte Absolute 0.01 K/mm3 (0.00-0.031); Immature Granulocyte Percent A 0.1 % (0-0.5); Lymphocytes Absolute Auto 2.41 K/mm3 (0.9-3.2); Lymphocytes Percent Auto 35.8 % (18.3-44.2); Mean Corpuscular HGB Conc 31.5 g/dl (32-36); Mean Corpuscular Hemoglobin 29.1 pg (26-34); Mean Corpuscular Volume 92.2 fl (80-100); Mean Platelet Volume 9.7 fl (7.4-10.4); Monocytes Absolute Auto 0.5 K/mm3 (0.1-0.6); Neutrophils Absolute Auto 3.5 K/mm3 (1.3-6.7); Neutrophils Percent Auto 52.7 % (45.5-73.1); Platelet Count Result 300 k/mm3 (150-375); Red Blood Count 4.37 M/mm3 (4.2-5.4); Red Cell Distribution Width 12.7 % (11.5-14.5); White Blood Count 6.7 K/mm3 (4.5-10.0)
[2021-12-11 14:18] LABS: INR 1.1; Prothrombin Time 13.8 Seconds (11.1-14.7)
[2021-12-11 14:19] LABS: Partial Thromboplastin Time 28.5 SECONDS (22.3-36.8)
[2021-12-11 14:32] LABS: Alanine Aminotransferase 14 U/L (6-35); Albumin Level 4.1 g/dL (3.5-5.1); Alkaline Phosphatase 65 U/L (38-126); Anion Gap 11 mmol/L (8-16); Aspartate Amino Transferase 28 U/L (14-36); Bilirubin,Total 0.5 mg/dL (0.2-1.3); Blood Urea Nitrogen 21 mg/dL (7-17); Carbon Dioxide 26 mmol/L (22-30); Chloride 105 mmol/L (98-107); Estimated CRCL calculation 27 ml/min; Estimated Glomerular Filt Rate 48; Glucose 111 mg/dL (65-110); Potassium 4.2 mmol/L (3.4-5.0); Sodium 142 mmol/L (137-145)
[2021-12-11 14:43] LABS: NT Pro B Type Natriuretic Pept 503 pg/mL (5-100); Troponin I < 0.012 ng/mL (0.000-0.034)
--- NOTE | 2021-12-11 16:25 | ED.RECABL ---
HPI - Recheck/Abnormal Lab/Rx General Chief Complaint: Recheck/Abnormal Lab/Rx <Carly Pleitez PA-C - Last Filed: 12/11/21 19:27> Stated Complaint: elevated BP <Carly Pleitez PA-C - Last Filed: 12/11/21 19:27> Time Seen by Provider: 12/11/21 16:24 <Carly Pleitez PA-C - Last Filed: 12/11/21 19:27> History of Present Illness HPI narrative: Patient is a 76-year-old female with a history of hypertension here for evaluation of elevated blood pressures today. Patient states that her blood pressure at physical therapy was over 200 systolic and she was told to come to the ED. Her only complaint is that she has bilateral lower extremity swelling. She has had the swelling present over the past month, she is currently taking taking Lasix and notes that has improved greatly. She has no history of heart failure, DVT, PE. She has no chest pain, shortness of breath, confusion, headaches, visual changes. <Carly Pleitez PA-C - Last Filed: 12/11/21 19:27> Related Data Home Medications: Home Medications Medication Instructions Recorded Confirmed cholecalciferol (vitamin D3) 25 1,000 unit PO DAILY 03/09/19 10/16/21 mcg (1,000 unit) capsule melatonin 10 mg capsule 10 mg PO HS 03/09/19 10/16/21 pyridoxine (vitamin B6) 100 mg 100 mg PO DAILY 03/09/19 10/16/21 tablet aspirin 81 mg tablet,delayed 81 mg PO DAILY 11/07/19 10/16/21 release (Adult Low Dose Aspirin) budesonide-formoterol HFA 80 2 puff inhalation PRN PRN 11/07/19 10/16/21 mcg-4.5 mcg/actuation aerosol Shortness Of Breath inhaler (Symbicort) magnesium 250 mg tablet 1,000 mg PO HS 11/07/19 10/16/21 <ISABEL Crenshaw Last Filed: 12/11/21 19:27> Allergies/Adverse Reactions: Allergies Allergy/AdvReac Type Severity Reaction Status Date / Time Iodinated Contrast Media Allergy Intermediate HIVES, Verified 12/11/21 13:40 TONGUE SWELLED Sulfa (Sulfonamide Allergy Unknown tongue Verified 12/11/21 13:40 Antibiotics) swelling <Carly Pleitez PA-C - Last Filed: 12/11/21 19:27> Review of Systems Review of Systems: Gen: Denies fevers or chills Eyes: Denies eye pain or visual change ENT: Denies congestion Respiratory: Denies shortness of breath or cough CV: Denies chest pain or palpitations GI: Denies abdominal pain nausea, emesis or diarrhea : denies burning, urgency, frequency or hematuria Musculoskeletal: Reports leg swelling. Neuro: Denies numbness, tingling, weakness or focal weakness Skin: Denies rash Except as documented, all other systems reviewed and negative <Carly Pleitez PA-C - Last Filed: 12/11/21 19:27> [facility], [facility] Past Medical History Medical History: Medical History Asthma Essential (primary) hypertension Hypothyroidism (acquired) Mixed hyperlipidemia Restless legs syndrome <Carly Pleitez PA-C - Last Filed: 12/11/21 19:27> Surgical History Surgical History: Surgical History H/O arthroscopy of right knee History of appendectomy History of back surgery History of carpal tunnel release History of knee replacement History of repair of rotator cuff Hx of cholecystectomy Hx of tonsillectomy <Carly Pleitez PA-C - Last Filed: 12/11/21 19:27> Family History Family History: Family History Mother Family history of glaucoma Hypertension Family history of kidney disease Cerebrovascular accident Family history of coronary artery disease Sibling Malignant neoplasm of prostate Family history of coronary artery disease Family history of cardiovascular disease Family history of kidney disease Grandparent Family history of coronary artery disease Family history of cardiovascular disease <Carly Pleitez PA-C - Last Filed:
[2021-12-11] MEDS: hydrALAZINE HCL 20 MG/ML VIAL 10 MG IV PUSH (16:39)
[2021-12-11 17:28] LABS: Appearance Urine Clear (Clear); Bilirubin Urine Negative (Negative); Blood Urine Negative (Negative); Glucose Urine UA Negative (Negative); Ketones Urine Negative (Negative); Leukocyte Esterase Ur Trace LEU/UL (Negative); Nitrate Urine Negative (Negative); Protein Urine Negative (Negative); Specific Grav Ur 1.015 (1.001-1.035); Urobilinogen Urine 0.2 mg/dL (<2.0)
[2021-12-11 17:33] LABS: Bacteria Urine Trace /hpf; Mucus Urine Rare /lpf; RBC Urine 0-2 /hpf (0-2); Squamous Epithelial Cell Urine Rare /hpf (Few); WBC Urine 0-3 /hpf
[2021-12-11 17:34] LABS: Add Urine Microscopic? YES; Color Urine Light Yellow (Yellow)
[2021-12-11 17:48] LABS: Troponin I < 0.012 ng/mL (0.000-0.034)
[2021-12-11 19:14] VITALS: BP 190/75; PULSE 87; RESP 17; O2SAT 100
== END 2021-12-11 19:14 | disposition home or self-care (01) ==
PROVIDERS: Physician Assistant; Emergency Provider Emergency Medicine; PCP Family Medicine
DX: I10 Essential (primary) hypertension (principal); J45.909 Unspecified asthma, uncomplicated; E03.9 Hypothyroidism, unspecified; G25.81 Restless legs syndrome; Z96.651 Presence of right artificial knee joint; Z79.82 Long term (current) use of aspirin; R94.31 Abnormal electrocardiogram [ECG] [EKG]; M79.89 Other specified soft tissue disorders
CPT/HCPCS: 36415; 70450; 71046; 80053; 81001; 83880; 84484; 85025; 85610; 85730; 93005; 93970; 96374; 99284; J0360

== ENCOUNTER 2022-05-28 20:43 | Outpatient (NON) | payer MEDICARE, OTHER, SELFPAY | END 2022-05-28 20:44 | disposition home or self-care (01) | LOC: ANHLAB 20:46 | PROVIDERS: PCP Family Medicine; Visit Provider Family Medicine | DX: R30.0 Dysuria (principal) | CPT/HCPCS: 87077; 87086; 87186 ==

== ENCOUNTER 2022-05-29 09:13 | Outpatient (CLI) | payer MEDICARE, OTHER, SELFPAY ==
[2022-05-29 20:30] LABS: Hematocrit 42.1 % (37.0-47.0); Hemoglobin 13.4 g/dL (12.0-15.0); Mean Corpuscular HGB Conc 31.8 g/dl (32-36); Mean Corpuscular Volume 94.4 fl (80-100); Mean Platelet Volume 10.1 fl (7.4-10.4); Platelet Count Result 332 k/mm3 (150-375); Red Blood Count 4.46 M/mm3 (4.2-5.4); Red Cell Distribution Width 13.1 % (11.5-14.5); White Blood Count 7.3 K/mm3 (4.5-10.0)
[2022-05-29 21:40] LABS: Alanine Aminotransferase 16 U/L (6-35); Alkaline Phosphatase 81 U/L (38-126); Anion Gap 4 mmol/L (8-16); Aspartate Amino Transferase 36 U/L (14-36); Bilirubin,Total 0.5 mg/dL (0.2-1.3); Blood Urea Nitrogen 23 mg/dL (7-17); Calcium 10.4 mg/dL (8.4-10.2); Carbon Dioxide 33 mmol/L (22-30); Chloride 105 mmol/L (98-107); Cholesterol 147 mg/dL (0-200); Estimated Glomerular Filt Rate 44; Glucose 84 mg/dL (65-110); HDL Direct 27 mg/dL; Potassium 5.6 mmol/L (3.4-5.0); Sodium 142 mmol/L (137-145); Triglycerides 147 mg/dL (<150)
[2022-05-29 21:52] LABS: LDL Cholesterol Direct 83 mg/dL
[2022-05-29 22:11] LABS: Thyroid Stimulating Hormone 0.112 uIU/mL (0.465-4.680)
[2022-05-30 03:47] LABS: Free T4 Free Thyroxine 2.35 ng/mL (0.78-2.19)
== END 2022-05-29 09:14 | disposition home or self-care (01) ==
LOC: ANHGOSHLAB 09:15
PROVIDERS: PCP Family Medicine; Visit Provider Family Medicine
DX: I10 Essential (primary) hypertension (principal); E03.9 Hypothyroidism, unspecified; E78.2 Mixed hyperlipidemia; Z79.899 Other long term (current) drug therapy
CPT/HCPCS: 36415; 80053; 80061; 84439; 84443; 85027

== ENCOUNTER 2022-06-04 08:01 | Outpatient (CLI) | payer MEDICARE, OTHER, SELFPAY ==
[2022-06-04 20:11] LABS: Potassium 4.8 mmol/L (3.4-5.0)
== END 2022-06-04 08:02 | disposition home or self-care (01) ==
LOC: ANHGOSHLAB 08:04
PROVIDERS: PCP Family Medicine; Visit Provider Nurse Practitioner
DX: E87.5 Hyperkalemia (principal)
CPT/HCPCS: 36415; 84132

== ENCOUNTER 2022-06-06 04:54 | Outpatient (NON) | payer MEDICARE, OTHER, SELFPAY | END 2022-06-06 04:55 | disposition home or self-care (01) | LOC: ANHLAB 04:57 | PROVIDERS: PCP Family Medicine; Visit Provider Family Medicine | DX: R30.0 Dysuria (principal) | CPT/HCPCS: 87077; 87086; 87186 ==

== ENCOUNTER 2022-06-27 08:07 | Outpatient (CLI) | payer MEDICARE, OTHER, SELFPAY ==
--- NOTE | ~2022-06-27 | MM_ITS ---
EXAMINATION: MM screening vanna BI w ranjit HISTORY: Screening TECHNIQUE: Craniocaudal and mediolateral oblique 3-D tomosynthesis images were obtained and synthetic 2-D images were generated. CAD analysis was submitted and interpreted. COMPARISON: Comparison to multiple prior studies sequentially, with oldest reviewed study dated 06/13. BREAST PARENCHYMAL COMPOSITION: Breast composed of scattered areas of fibroglandular density FINDINGS: There is no evidence of suspicious mass, calcification, or architectural distortion to sugg est malignancy in either breast. There has been no suspicious interval change. IMPRESSION: 1. No mammographic evidence of malignancy. 2. Recommend routine screening mammography in one year. BI-RADS Category 1: Negative Reviewed, dictated and finalized at location A.
== END 2022-06-27 08:08 | disposition home or self-care (01) ==
PROVIDERS: PCP Family Medicine; Visit Provider Family Medicine
DX: Z12.31 Encounter for screening mammogram for malignant neoplasm of breast (principal)
CPT/HCPCS: 77063; 77067

== ENCOUNTER 2023-01-26 11:31 | Outpatient (CLI) | payer MEDICARE, OTHER, SELFPAY ==
[2023-01-26 19:24] LABS: Free T4 Free Thyroxine 1.82 ng/mL (0.78-2.19)
[2023-01-26 19:52] LABS: Alanine Aminotransferase 15 U/L (6-35); Albumin Level 4.2 g/dL (3.5-5.1); Alkaline Phosphatase 61 U/L (38-126); Anion Gap 7 mmol/L (8-16); Aspartate Amino Transferase 32 U/L (14-36); Bilirubin,Total 0.6 mg/dL (0.2-1.3); Blood Urea Nitrogen 37 mg/dL (7-17); Carbon Dioxide 31 mmol/L (22-30); Chloride 99 mmol/L (98-107); Cholesterol 174 mg/dL (0-200); Estimated Glomerular Filt Rate 40; Glucose 120 mg/dL (65-110); HDL Direct 40 mg/dL; Potassium 4.2 mmol/L (3.4-5.0); Sodium 137 mmol/L (137-145); Triglycerides 186 mg/dL (<150)
[2023-01-26 20:03] LABS: LDL Cholesterol Direct 96 mg/dL
[2023-01-29 17:48] LABS: Vitamin D 1,25 (OH)2 Total 66 pg/mL (18-72); Vitamin D2 1,25 (OH)2 <8 pg/mL; Vitamin D3 1,25 (OH)2 66 pg/mL
== END 2023-01-26 11:32 | disposition home or self-care (01) ==
PROVIDERS: PCP Family Medicine; Visit Provider Family Medicine
DX: E03.9 Hypothyroidism, unspecified (principal); I10 Essential (primary) hypertension; E78.2 Mixed hyperlipidemia; E55.9 Vitamin D deficiency, unspecified; Z79.899 Other long term (current) drug therapy
CPT/HCPCS: 36415; 80053; 80061; 82652; 84439; 84443

== ENCOUNTER 2023-02-16 11:45 | Emergency (ER) | payer MEDICARE, OTHER, SELFPAY ==
--- NOTE | ~2023-02-16 | CT_ITS ---
Non-contrast Head CT History: Trauma COMPARISON: 12/11/2021 Technique: Axial non-contrast imaging of the brain was performed. Dose reduction technique was used on this scan by utilizing automated exposure control and iterative reconstruction technique. The dose -length product (DLP) was 161.58 mGy-cm. Findings: There is no evidence of intracranial hemorrhage, mass lesion, or acute infarct. Brain par enchyma appears normal. The ventricles and subarachnoid spaces are normal in size. The calvarium ap pears normal. The visualized paranasal sinuses and mastoid air cells are clear. Impression: No significant abnormality seen. Reviewed, dictated and finalized at [facility]. ATIONAL FUNDRAISING DIRECTOR Impression: No significant abnormality seen.
--- NOTE | ~2023-02-16 | CT_ITS ---
EXAMINATION: CT cervical spine wo con DATE: 02/16/2023 12:38 INDICATION: Neck injury. TECHNIQUE: Computed tomography (CT) of the cervical spine was performed without intravenous contrast. Automated exposure control and iterative reconstruction technique were employed. The dose-length pro duct was 161.58 mGy-cm. COMPARISON: None FINDINGS: Bone alignment is normal. Vertebral body heights are normal. There is moderately decreased disc height at C5-C6. The following disc levels are specifically discussed: C2-C3: There is no uncovertebral joint osteoarthritis. There is mild right facet joint osteoarthritis . There is no neural foraminal stenosis. There is no central canal stenosis. C3-C4: There is no uncovertebral joint osteoarthritis. There is mild right and severe left facet join t osteoarthritis. There is mild left neural foraminal stenosis. There is no central canal stenosis. C4-C5: There is no uncovertebral joint osteoarthritis. There is severe left facet joint osteoarthriti s. There is mild left neural foraminal stenosis. There is no central canal stenosis. C5-C6: There is severe bilateral uncovertebral joint osteoarthritis. There is mild bilateral facet eugenia int osteoarthritis. There is mild bilateral neural foraminal stenosis. There is mild central canal st enosis. C6-C7: There is no uncovertebral joint osteoarthritis. There is no facet joint osteoarthritis. There is no neural foraminal stenosis. There is no central canal stenosis. C7-T1: There is no uncovertebral joint osteoarthritis. There is mild right and severe left facet join t osteoarthritis. There is no neural foraminal stenosis. There is no central canal stenosis. IMPRESSION: 1. No fracture. 2. Moderate cervical spondylosis. Reviewed, dictated and finalized at location A. HER FORECASTER
--- NOTE | ~2023-02-16 | XR_ITS ---
EXAMINATION: XR hand LT min 3V DATE: 02/16/2023 12:46 INDICATION: Left hand injury. TECHNIQUE: 3 views of left hand were obtained. COMPARISON: None. FINDINGS: Bone alignment is normal. No fracture. There is moderate osteoarthritis of first carpometac arpal joint. There is mild to moderate osteoarthritis of many of the interphalangeal joints. IMPRESSION: 1. Polyarticular osteoarthritis. Reviewed, dictated and finalized at location A. ICAL LABORATORY DIRECTOR
--- NOTE | ~2023-02-16 | XR_ITS ---
EXAMINATION: XR wrist LT w scaphoid DATE: 02/16/2023 12:46 INDICATION: Left wrist injury. TECHNIQUE: 4 views of left wrist were obtained. COMPARISON: None. FINDINGS: Bone alignment is normal. No fracture. There is moderate osteoarthritis of first carpometac arpal joint. IMPRESSION: 1. Moderate osteoarthritis of first carpometacarpal joint. Reviewed, dictated and finalized at location A. DCAST OPERATIONS ENGINEER
[2023-02-16 11:45] VITALS: BP 107/74; PULSE 64; RESP 18; TEMP 36.5; O2SAT 99
--- NOTE | 2023-02-16 12:02 | ED.FALL ---
HPI - Fall General Chief Complaint: Fall Stated Complaint: fall on thursday; head injury and left hand pain Time Seen by Provider: 02/16/23 11:58 History of Present Illness HPI Narrative: Patient is a 77-year-old female with history of recurrent falls and poor balance, HTN, HLD here with fall. Patient notes that yesterday she had a fall while in her motor home. The notes that typically she uses her walker and is supposed to wake him up to help her to the bathroom. Overnight she had a fall and her witnessed it. She denies any prodromal chest pain or shortness of breath but feels unsteady on her feet and feels as though she needs to take several steps backward to catch her balance. She believes she hit her head, no LOC. No blood thinner use. She additionally believes that she hit her left hand when she fell, currently complaining of pain in her wrist and thumb on the left with some decreased ROM due to pain. of note patient and have been working with primary care doctor regarding her unsteadiness. They feel comfortable with how they are managing things at home right now and she has an appointment for initiation of physical therapy occurring soon. She us unsure of when her last tetanus was. Related Data Home Medications Medication Instructions Recorded Confirmed cholecalciferol (vitamin D3) 25 1,000 unit PO DAILY 03/09/19 02/16/23 mcg (1,000 unit) capsule aspirin 81 mg tablet,delayed 81 mg PO DAILY 11/07/19 02/16/23 release (Adult Low Dose Aspirin) Allergies Allergy/AdvReac Type Severity Reaction Status Date / Time Iodinated Contrast Media Allergy Intermediate HIVES, Verified 02/16/23 12:12 TONGUE SWELLED Sulfa (Sulfonamide Allergy Unknown tongue Verified 02/16/23 12:12 Antibiotics) swelling Review of Systems Review of Systems: All systems reviewed & are unremarkable except as noted in HPI and below PMFSH Past Medical History Medical History Asthma Essential (primary) hypertension Hypothyroidism (acquired) Mixed hyperlipidemia Restless legs syndrome Surgical History Surgical History H/O arthroscopy of right knee History of appendectomy History of back surgery History of carpal tunnel release History of knee replacement History of repair of rotator cuff Hx of cholecystectomy Hx of tonsillectomy Family History Family History Mother Family history of glaucoma Hypertension Family history of kidney disease Cerebrovascular accident Family history of coronary artery disease Sibling Malignant neoplasm of prostate Family history of coronary artery disease Family history of cardiovascular disease Family history of kidney disease Grandparent Family history of coronary artery disease Family history of cardiovascular disease Social History Social History Social History: Caffeine-daily Smoking status: Never smoker Alcohol intake: never Substance use: never Substance use type: does not use Lack of Transportation: No Lack of Food: Never True Current Housing: I Have Housing Concerned About Future Housing: No Difficulty Paying Gas/Electric Bills: No Difficulty Paying for Meds: No Currently Unemployed: No Education: High School Diploma/GED Difficulty w/ Childcare or Family Care: No Living arrangements: with family Occupation/Education: retired Gender identity (if verbalized by the patient): Female Sexual Orientation (if Verbalized by the Patient): Straight or Heterosexual Spiritual care concerns: No Agree to blood products: Yes Exam Narrative: GENERAL: Well-appearing, well-nourished, and in no acute distress. HEAD: Normocephalic, atraumatic. No hematoma appreciated. EYES: PERRLA and EOMI. ENT: Nares clear
[2023-02-16] MEDS: TETANUS,DIPHTHERIA,AC PERTUSSIS ADULT 0.5 ML (ADACEL) IM (12:46)
[2023-02-16] MEDS: ACETAMINOPHEN 500 MG TABLET 1000 MG PO (12:46)
[2023-02-16 13:20] VITALS: BP 127/59; PULSE 65; RESP 16; O2SAT 100
== END 2023-02-16 13:27 | disposition home or self-care (01) ==
PROVIDERS: Emergency Provider Student in an Organized Health Care Education/Training Program; PCP Family Medicine
DX: S60.222A Contusion of left hand, initial encounter (principal); S09.90XA Unspecified injury of head, initial encounter; I10 Essential (primary) hypertension; E78.2 Mixed hyperlipidemia; Z79.82 Long term (current) use of aspirin; Z23 Encounter for immunization; W19.XXXA Unspecified fall, initial encounter
CPT/HCPCS: 70450; 72125; 73110; 73130; 90471; 90715; 99284

== ENCOUNTER 2023-02-25 08:07 | Outpatient (CLI) | payer MEDICARE, OTHER, SELFPAY ==
[2023-02-25 12:03] LABS: Hematocrit 40.9 % (37.0-47.0); Hemoglobin 12.3 g/dL (12.0-15.0); Mean Corpuscular HGB Conc 30.1 g/dl (32-36); Mean Corpuscular Hemoglobin 29.3 pg (26-34); Mean Corpuscular Volume 97.4 fl (80-100); Mean Platelet Volume 9.7 fl (7.4-10.4); Platelet Count Result 329 k/mm3 (150-375); White Blood Count 7.6 K/mm3 (4.5-10.0)
[2023-02-25 12:18] LABS: Alanine Aminotransferase 15 U/L (6-35); Albumin Level 3.7 g/dL (3.5-5.1); Alkaline Phosphatase 51 U/L (38-126); Anion Gap 9 mmol/L (8-16); Aspartate Amino Transferase 26 U/L (14-36); Bilirubin,Total 0.4 mg/dL (0.2-1.3); Blood Urea Nitrogen 31 mg/dL (7-17); Calcium 10.6 mg/dL (8.4-10.2); Carbon Dioxide 29 mmol/L (22-30); Chloride 100 mmol/L (98-107); Estimated Glomerular Filt Rate 36; Glucose 116 mg/dL (65-110); Potassium 4.6 mmol/L (3.4-5.0); Sodium 138 mmol/L (137-145)
[2023-02-25 13:07] LABS: Free T4 Free Thyroxine 2.68 ng/mL (0.78-2.19)
== END 2023-02-25 08:08 | disposition home or self-care (01) ==
PROVIDERS: PCP Family Medicine; Visit Provider Family Medicine
DX: Z01.818 Encounter for other preprocedural examination (principal); E03.9 Hypothyroidism, unspecified; I10 Essential (primary) hypertension
CPT/HCPCS: 36415; 80053; 84439; 84443; 85027; 97161; 97530

== ENCOUNTER 2023-04-23 09:00 | Outpatient (RCR) | payer MEDICARE, OTHER, SELFPAY ==
--- NOTE | 2023-02-25 09:57 | OPREHPOC ---
Outpatient Therapy Plan of Care This is a Multidisciplinary Plan of Care that may contain components documented by all disciplines (PT, OT, and ST.) PT Problem 1 PT Problem #1 Knowledge Deficit PT Goal 1 Goal Pt to be IND with issued HEP Target Visit 8 PT Problem 2 PT Problem #2 Impaired Safety Awareness PT Goal 1 Goal Pt to report no falls in the last month Target Visit 8 PT Problem 3 PT Problem #3 Impaired Gait PT Goal 1 Goal Pt to improve 2 min walk test from 110ft to 200ft with cane. Target Visit 8 PT Goal 2 Goal Pt to demonstrate 2 mins of walking with any device without need for external support for safety. Target Visit 8 PT Problem 4 PT Problem #4 Impaired Balance PT Goal 1 Goal Pt to improve Tinetti score from 08/01 to to demonstrates minimized fall risk. Target Visit 8 PT Goal 2 Goal Pt to be able to stand for 10s without UE support Target Visit 8
--- NOTE | 2023-02-25 09:57 | PTOPEVAL1 ---
Assessment and note entered by Igor Espinoza, PT, DPT Evaluation Information Assessment Status Evaluation Diagnosis abnormalities of gait and mobility (R26.89) Subjective Information Pt states she has become really unstable, she states she cannot stand without support. Her states at times she will walk backwards or ask him if she is walking. He states even with a standard walker she will fall or walk backwards. She reports a big increase in falls, the most recent was 2 weeks ago, and probably 10+ falls in the last 6 months. Pt states in order to work in the kitchen she has multiple chairs that she sits in and will pivot from chair to chair to move around her kitchen. She states she has to lean up against a wall in order to change her clothes without falling. Reported Pain Level Pain Score 0: Self Report Assessment PT Clinical Summary Cheri presents to therapy today for her initial evaluation with a diagnosis of abnormalities of gait and mobility. Today she demonstrates decreased BLE strength throughout. She demonstrates poor static standing balance and is unable to stand without some type of external support. Her scores on the TUG, Tinetti, 2 min, and 5xSTS test all place her at an increased risk for falls. Skilled therapy services are indicated to improve strength, balance, safety awareness, to improve functional mobility, and to minimize risk of falls. Plan of Care Interventions Gait Training,Manual Therapy,Neuro Re-education, Patient/Caregiver Educati,Therapeutic Activities, Therapeutic Exercise,Self-Care/Home Management PT Services Indicated Yes Treatment Frequency and 2x/wk for 8 visits Duration These treatments will address the objective and functional deficits as defined above. The patient will be advanced safely and appropriately in order for the patient to progress towards his/her prior level of function. Additional exercises will be introduced and as well as a comprehensive home exercise program upon discharge, if needed, ?to ensure carryover of functional gains achieved in the clinic. This treatment plan has been reviewed and agreement upon by the patient.
--- NOTE | 2023-03-25 08:54 | PTOPPROG ---
Assessment and note entered by Igor Espinoza, PT, DPT Evaluation Information Assessment Status Progress Diagnosis abnormalities of gait and mobility (R26.89) Subjective Information Pt states regardless of where she goes she does not like therapy. She states since starting therapy she thinks her legs are stronger, she states she only had one LOB where it felt like she would fall. She still has a fear of falling but has been able to progress from a walker to a cane. Assessment PT Clinical Summary Cheri presents to therapy today for her progress report following 8 visits of skilled therapy to treat her a diagnosis of abnormalities of gait and mobility. Today she demonstrates significantly improved scores during the 2min, TUG, 5xSTS, and Tinetti, but still remains at an increased risk of falls. Her static and dynamic standing balance is still decreased from expected. Continuation of skilled therapy services are indicated to improve strength, balance, safety awareness, to improve functional mobility, and to minimize risk of falls . Plan of Care Interventions Gait Training,Manual Therapy,Neuro Re-education, Patient/Caregiver Educati,Therapeutic Activities, Therapeutic Exercise,Self-Care/Home Management PT Services Indicated Yes Treatment Frequency and 1x/wk for 4 visits Duration These treatments will address the objective and functional deficits as defined above. The patient will be advanced safely and appropriately in order for the patient to progress towards his/her prior level of function. Additional exercises will be introduced and as well as a comprehensive home exercise program upon discharge, if needed, ?to ensure carryover of functional gains achieved in the clinic. This treatment plan has been reviewed and agreement upon by the patient.
--- NOTE | 2023-04-23 09:48 | PTOPDC ---
Assessment and note entered by Igor Espinoza, PT, DPT Evaluation Information Assessment Status Discharge Diagnosis abnormalities of gait and mobility (R26.89) Subjective Information Pt states she still has a pain in her leg that she has had for years. She states she is walking more independently around her home without the use of counters or wright to give her support. She continues to reports good compliance with her HEP. Reported Pain Level Pain Score 4: Self Report Assessment PT Clinical Summary Cheri presents to therapy today for her progress report following 12 visits of skilled therapy to treat her a diagnosis of abnormalities of gait and mobility. Today she demonstrates improvements in her 5xSTS and Tinetti scores with minor regression on her 2min walk test and TUG times. She declines any falls in the last month. She continues to report good compliance with her HEP. Pt elected to continue her HEP, start silver sneakers, and follow up with therapy is needed after they return from an extended vacation. Pt will be discharged at this time per her request.
== END 2023-04-23 10:24 | disposition home or self-care (01) ==
LOC: ANHGOSHPT 09:00
PROVIDERS: PCP Family Medicine; Visit Provider Nurse Practitioner
DX: R26.89 Other abnormalities of gait and mobility (principal)
CPT/HCPCS: 97014; 97110; 97112; 97116; 97140; 97161; 97530; 97750; G0283

== ENCOUNTER 2023-06-08 07:58 | Outpatient (CLI) | payer MEDICARE, OTHER, SELFPAY ==
[2023-06-08 19:27] LABS: Hematocrit 44.2 % (37.0-47.0); Hemoglobin 13.6 g/dL (12.0-15.0); Mean Corpuscular HGB Conc 30.8 g/dl (32-36); Mean Corpuscular Hemoglobin 29.4 pg (26-34); Mean Corpuscular Volume 95.7 fl (80-100); Platelet Count Result 348 k/mm3 (150-375); Red Blood Count 4.62 M/mm3 (4.2-5.4); Red Cell Distribution Width 13.7 % (11.5-14.5); White Blood Count 9.7 K/mm3 (4.5-10.0)
[2023-06-08 19:31] LABS: Free T4 Free Thyroxine 1.46 ng/mL (0.78-2.19)
[2023-06-08 19:45] LABS: Alanine Aminotransferase 15 U/L (6-35); Alkaline Phosphatase 53 U/L (38-126); Anion Gap 6 mmol/L (8-16); Aspartate Amino Transferase 35 U/L (14-36); Bilirubin,Total 0.6 mg/dL (0.2-1.3); Blood Urea Nitrogen 31 mg/dL (7-17); Calcium 10.6 mg/dL (8.4-10.2); Carbon Dioxide 30 mmol/L (22-30); Chloride 101 mmol/L (98-107); Cholesterol 148 mg/dL (0-200); Estimated Glomerular Filt Rate 48; Glucose 75 mg/dL (65-110); HDL Direct 44 mg/dL; Potassium 4.7 mmol/L (3.4-5.0); Sodium 137 mmol/L (137-145); Triglycerides 139 mg/dL (<150)
[2023-06-08 19:56] LABS: LDL Cholesterol Direct 91 mg/dL
[2023-06-11 13:51] LABS: Vitamin D 1,25 (OH)2 Total 55 pg/mL (18-72); Vitamin D2 1,25 (OH)2 <8 pg/mL; Vitamin D3 1,25 (OH)2 55 pg/mL
== END 2023-06-08 07:59 | disposition home or self-care (01) ==
PROVIDERS: PCP Family Medicine; Visit Provider Family Medicine
DX: E03.9 Hypothyroidism, unspecified (principal); E55.9 Vitamin D deficiency, unspecified; E78.2 Mixed hyperlipidemia; I10 Essential (primary) hypertension; Z79.899 Other long term (current) drug therapy
CPT/HCPCS: 36415; 80053; 80061; 82652; 84439; 84443; 85027

== ENCOUNTER 2023-06-16 08:56 | Emergency (ER) | payer MEDICARE, OTHER, SELFPAY ==
--- NOTE | ~2023-06-16 | CT_ITS ---
EXAMINATION: CT brain wo con DATE: 06/16/2023 09:37 INDICATION: Fall with laceration at the left eyebrow TECHNIQUE: Computed tomography (CT) of the head was performed without intravenous contrast. Sagittal and coronal reconstructions were performed. The mA was adjusted according to patient size. Iterative reconstruction technique was employed. The dose-length product was 605.33 mGy-cm. COMPARISON: head CT dated 02/16/2023 FINDINGS: No fracture. No acute intracranial hemorrhage, acute infarction or abnormal extra axial fluid collect ion. Symmetric prominence of the sulci and and subarachnoid spaces overlying the convexities consiste nt with mild age-appropriate diffuse cerebral volume loss. Ventricles are normal and symmetric. No ma ss/mass effect. Mucous retention cyst at the left maxillary sinus. Changes of bilateral intraocular l ens replacement. The orbits and mastoid air cells are normal. IMPRESSION: 1. Normal aging brain. No fracture or acute intracranial process. Reviewed, dictated and finalized at location L.
--- NOTE | ~2023-06-16 | XR_ITS ---
EXAMINATION: XR hand LT min 3V DATE: 06/16/2023 09:38 INDICATION: Posterior left hand pain post fall TECHNIQUE: Posteroanterior, oblique and lateral views of the left hand were obtained. COMPARISON: 02/16/2023 FINDINGS: Diffuse osteopenia. Slight widening of the scapholunate interval with unchanged increased scapholunat e angle consistent with likely chronic scapholunate ligament insufficiency and dorsal intercalated se gment instability (DISI). No fracture. Polyarticular osteoarthritis at the left hand, severe at the f irst interphalangeal joint, moderate severity at the first carpometacarpal, second, third and fifth d istal interphalangeal joints and mild at the wrist, triscaphe, multiple metacarpophalangeal and remai taryn interphalangeal joints. Soft tissues are unremarkable. IMPRESSION: 1. No acute osseous abnormality. 2. Moderate to severe polyarticular osteoarthritis. 3. 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 Reviewed, dictated and finalized at location L. IMPRESSION: 1. No acute osseous abnormality. 2. Moderate to severe polyarticular osteoarthritis. 3. 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
--- NOTE | ~2023-06-16 | CT_ITS ---
EXAMINATION: CT cervical spine wo con DATE: 06/16/2023 09:38 INDICATION: Head injury. TECHNIQUE: Computed tomography (CT) of the cervical spine was performed without intravenous contrast. Automated exposure control and iterative reconstruction technique were employed. The dose-length pro duct was 192.72 mGy-cm. COMPARISON: CT cervical spine 02/16/2023 FINDINGS: There are small bilateral mastoid effusions. Bone alignment is normal. Vertebral body heigh ts are normal. There is severely decreased disc height at C5-C6. The following disc levels are specif ically discussed: C2-C3: There is mild bilateral uncovertebral joint osteoarthritis. There is moderate right facet join t osteoarthritis. There is no neural foraminal stenosis. There is no central canal stenosis. C3-C4: There is no uncovertebral joint osteoarthritis. There is moderate and severe left facet joint osteoarthritis. There is mild left neural foraminal stenosis. There is no central canal stenosis. C4-C5: There is no uncovertebral joint osteoarthritis. There is mild right and severe left facet join t osteoarthritis. There is mild left neural foraminal stenosis. There is no central canal stenosis. C5-C6: There is severe bilateral uncovertebral joint osteoarthritis. There is moderate bilateral face t joint osteoarthritis. There is mild bilateral neural foraminal stenosis. There is mild central trey l stenosis. C6-C7: There is no uncovertebral joint osteoarthritis. There is mild bilateral facet joint osteoarthr itis. There is no neural foraminal stenosis. There is no central canal stenosis. C7-T1: There is no uncovertebral joint osteoarthritis. There is moderate bilateral facet joint osteoa rthritis. There is no neural foraminal stenosis. There is no central canal stenosis. IMPRESSION: 1. No fracture. 2. Severe spondylosis at C5-C6 and mild spondylosis at other levels. Reviewed, dictated and finalized at location A.
[2023-06-16 08:56] VITALS: BP 115/69; PULSE 100; RESP 18; TEMP 36.4; O2SAT 97
--- NOTE | 2023-06-16 09:12 | ED.GENADULT ---
HPI - General Adult General Chief complaint: Wound/Laceration Stated complaint: fall; head injury and left hand injury Time Seen by Provider: 06/16/23 09:11 Source: patient and family Mode of arrival: ambulatory Limitations: no limitations History of Present Illness HPI narrative: 77 years old white female came by private car to the ED with her complaining of left forehead laceration left hand pain after a fall. Patient was going to the bathroom, lost control on her walker and fell to the ground. No loss of consciousness, denies any headache or neck pain. Or any other injuries. Related Data Home Medications Medication Instructions Recorded Confirmed cholecalciferol (vitamin D3) 25 1,000 unit PO DAILY 03/09/19 06/16/23 mcg (1,000 unit) capsule aspirin 81 mg tablet,delayed 81 mg PO DAILY 11/07/19 06/16/23 release (Adult Low Dose Aspirin) amlodipine 5 mg tablet 5 mg PO DAILY 06/02/23 06/16/23 carvedilol 12.5 mg tablet 12.5 mg PO Q12H 06/02/23 06/16/23 duloxetine 60 mg capsule,delayed 60 mg PO DAILY 06/02/23 06/16/23 release vitamin B complex 1 cap PO DAILY 06/02/23 06/16/23 Allergies Allergy/AdvReac Type Severity Reaction Status Date / Time Iodinated Contrast Media Allergy Intermediate HIVES, Verified 06/16/23 09:04 TONGUE SWELLED Sulfa (Sulfonamide Allergy Unknown tongue Verified 06/16/23 09:04 Antibiotics) swelling Review of Systems Review of Systems: All systems reviewed & are unremarkable except as noted in HPI and below PMFSH Past Medical History Medical History Asthma Essential (primary) hypertension Hypothyroidism (acquired) Mixed hyperlipidemia Restless legs syndrome Surgical History Surgical History H/O arthroscopy of right knee History of appendectomy History of back surgery History of carpal tunnel release History of knee replacement History of repair of rotator cuff Hx of cholecystectomy Hx of tonsillectomy Family History Family History Mother Family history of glaucoma Hypertension Family history of kidney disease Cerebrovascular accident Family history of coronary artery disease Sibling Malignant neoplasm of prostate Family history of coronary artery disease Family history of cardiovascular disease Family history of kidney disease Grandparent Family history of coronary artery disease Family history of cardiovascular disease Social History Social History Social History: Caffeine-daily Smoking status: Never smoker Alcohol intake: never Substance use: never Substance use type: does not use Lack of Transportation: No Lack of Food: Never True Current Housing: I Have Housing Concerned About Future Housing: No Difficulty Paying Gas/Electric Bills: No Difficulty Paying for Meds: No Currently Unemployed: No Education: High School Diploma/GED Difficulty w/ Childcare or Family Care: No Living arrangements: with family Occupation/Education: retired Gender identity (if verbalized by the patient): Female Sexual Orientation (if Verbalized by the Patient): Straight or Heterosexual Spiritual care concerns: No Agree to blood products: Yes Exam Narrative: General appearance: Well-developed, well-nourished Skin: Normal color Head: Normocephalic, left forehead laceration, contused, 2 cm, subcutaneous Eyes: Clear conjunctiva ENT: Oropharynx normal, ears normal, nose normal Neck: Supple, nontender Chest and respiratory: Airway patent, no respiratory distress, no accessory muscle use Heart: Regular rate/rhythm Abdomen: Soft, nontender, no organomegaly, quiet bowel sounds Vascular: Normal peripheral pulses, normal capillary refill. Musculoskeletal: left hand contusion dorsally, limited range of motion, bruised
[2023-06-16] MEDS: TETANUS,DIPHTHERIA,AC PERTUSSIS ADULT 0.5 ML (ADACEL) IM (09:41)
--- NOTE | 2023-06-16 10:04 | PC.NURSE ---
Forehead wound and skin tear to hand cleansed with hibicleanse and sterile saline. Steri-strips applied to left dorsal hand skin tear. Wound on left forehead above left eyebrow is 2.5cm and v-shaped. Dr. Rios to suture.
[2023-06-16] MEDS: CEPHALEXIN 500 MG CAPSULE PO (10:31)
[2023-06-16 10:32] VITALS: BP 134/72; PULSE 54; RESP 16; O2SAT 98
== END 2023-06-16 10:40 | disposition home or self-care (01) ==
PROVIDERS: Emergency Provider Emergency Medicine; PCP Family Medicine
DX: S01.81XA Laceration without foreign body of other part of head, initial encounter (principal); S60.222A Contusion of left hand, initial encounter; I10 Essential (primary) hypertension; E03.9 Hypothyroidism, unspecified; E78.2 Mixed hyperlipidemia; Z79.899 Other long term (current) drug therapy; Z79.82 Long term (current) use of aspirin; Z23 Encounter for immunization; W18.39XA Other fall on same level, initial encounter; Y92.002 Bathroom of unspecified non-institutional (private) residence as the place of occurrence of the external cause
CPT/HCPCS: 12011; 70450; 72125; 73130; 90471; 90715; 99284; A9270

== ENCOUNTER 2023-10-18 07:26 | Outpatient (CLI) | payer MEDICARE, OTHER, SELFPAY ==
--- NOTE | ~2023-10-18 | MR_ITS ---
MRI of the brain Clinical History: Ataxia Technique: Axial and sagittal T1-weighted images were acquired. These were followed by axial T2-weigh shilpa, diffusion weighted, gradient, and FLAIR images. Findings: There is no acute infarct, intracranial hemorrhage, or mass lesion. There are minimal chron ic white matter changes in the periventricular white matter bilaterally. Ventricles and subarachnoid spaces are mildly dilated. Orbits are unremarkable. Paranasal sinuses and mastoid air cells are essentially clear. Major intracranial flow voids are intact. Sagittal midline structures are intact. IMPRESSION: No acute infarct, intracranial hemorrhage, or mass lesion. Minimal chronic microvascular ischemic change, and mild generalized atrophy. Reviewed, dictated and finalized at location .
--- NOTE | ~2023-10-18 | MR_ITS ---
MRI of the thoracic spine Clinical History: Spinal stenosis Technique: Axial T2-weighted and gradient images, and sagittal T1-weighted, T2-weighted, and STIR melissa ges were acquired. Findings: There is no fracture or subluxation of the thoracic spine. Vertebral bodies maintain normal height and alignment. No bone marrow signal abnormality seen. There are minimal scattered degenerati ve disc changes throughout the thoracic spine. No significant disc bulge or herniation seen at any thoracic level. No spinal canal stenosis or cord compression identified in the thoracic spine. Neural foramina are preserved throughout the thoracic s pine No abnormal signal seen in the spinal cord. No epidural mass or collection seen. Paravertebral soft t issues are unremarkable. Impression: No significant abnormality. Reviewed, dictated and finalized at location . Impression: No significant abnormality.
--- NOTE | ~2023-10-18 | MR_ITS ---
MRI of the cervical spine Clinical History: Ataxia Technique: Axial T2-weighted and gradient images, and sagittal T1-weighted, T2-weighted, and STIR melissa ges were acquired. Findings: There is no fracture or subluxation of the cervical spine. Vertebral bodies maintain normal height and alignment. No bone marrow signal abnormality seen. At C2-C3, there is no disc bulge or herniation. No spinal canal stenosis, cord compression, or neural foraminal narrowing. At C3-C4, there is no disc bulge or herniation. No spinal canal stenosis, cord compression, or neural foraminal narrowing. At C4-C5, there is no disc bulge or herniation. No spinal canal stenosis, cord compression, or neural foraminal narrowing. At C5-C6, there is mild disc bulge. No spinal canal stenosis or cord compression. There is mild bilat eral neural foraminal narrowing. At C6-C7, there is no significant disc bulge or herniation. No spinal canal stenosis, cord compressio n, or neural foraminal narrowing. No abnormal signal seen in the spinal cord. Paravertebral soft tissues are unremarkable. Impression: Mild spondylosis at C5-C6, as detailed above. Reviewed, dictated and finalized at location M. Impression: Mild spondylosis at C5-C6, as detailed above.
--- NOTE | ~2023-10-18 | MR_ITS ---
MRI of the lumbar spine Clinical History: Spinal stenosis Technique: Axial T2-weighted images, and sagittal T1-weighted, T2-weighted, and and T2 fat-sat images were acquired. COMPARISON: 11/16/2020 Findings: Patient is status post interval posterior fusion from L4-L5, with bilateral rods and transp edicular screws present. There is interbody fusion device at the L4-5 disc space. There is underlying 18 mm anterolisthesis of L4 over L5, which is significantly worsened as compared to prior exam. Ther e is 3 mm anterolisthesis of L3 over L4. No suspicious bone marrow signal abnormality seen. At L1-L2, there is no disc bulge or herniation. There is mild facet arthropathy. No central canal tracey nosis. There is mild right neural foraminal narrowing. Left neural foramen preserved. At L2-L3, there is no disc bulge or herniation. There is severe facet arthropathy. No central canal s tenosis. There is mild bilateral neural foraminal narrowing. At L3-L4, there is diffuse disc bulge/uncovering. There is advanced facet arthropathy. There is mild central canal stenosis. There is severe right neural foraminal narrowing, and mild left neural forami nal narrowing. At L4-L5, there is diffuse disc bulge/uncovering with severe facet arthropathy, and severe spinal can al stenosis/thecal sac compression. There is severe bilateral neural foraminal comprise. At L5-S1, there is no disc bulge or herniation. There is moderate facet arthropathy. No central canal stenosis or definite neural foraminal narrowing seen. Paravertebral soft tissues are unremarkable, aside from expected postoperative change. Impression: Status post interval posterior and interbody fusion from L4 to L5. There is 18 mm anterolisthesis of L4 over L5, which is significantly worsened as compared to prior exam. Severe degenerative spondylosis with severe spinal canal stenosis and neural foraminal narrowing at L 4-L5 level. Additional moderate to advanced degenerative spondylosis at L3-L4, as detailed above. 3 mm anterolisthesis of L3 over L4. Reviewed, dictated and finalized at location M. Impression: Status post interval posterior and interbody fusion from L4 to L5. There is 18 mm anterolisthesis of L4 over L5, which is significantly worsened as compared t o prior exam. Severe degenerative spondylosis with severe spinal canal stenosis and neural fo raminal narrowing at L4-L5 level. Additional moderate to advanced degenerative spondylosis at L3-L4, as detailed above. 3 mm anterolisthesis of L3 over L4.
== END 2023-10-18 07:27 | disposition home or self-care (01) ==
LOC: ANHIMG 07:28
PROVIDERS: PCP Family Medicine; Visit Provider Student in an Organized Health Care Education/Training Program
DX: M48.00 Spinal stenosis, site unspecified (principal); R27.0 Ataxia, unspecified; Z98.1 Arthrodesis status; M43.06 Spondylolysis, lumbar region; M43.02 Spondylolysis, cervical region
CPT/HCPCS: 70551; 72141; 72146; 72148

== ENCOUNTER 2023-12-24 14:32 | Outpatient (CLI) | payer MEDICARE, OTHER, SELFPAY ==
--- NOTE | ~2023-12-24 | XR_ITS ---
XR chest 2V Ordering provider: Halima Carson DO History: 78 years Female with . J45.909 - Unspecified asthma, uncomplicated . Comparison: December 11, 2021 FINDINGS: MEDIASTINUM: The cardiac silhouette is not enlarged. LUNGS: No infiltrates, effusions or pneumothorax. Opacities are seen in the right midzone which may be nodules versus summation shadow versus healing f ractures in the ribs. Follow-up advised. OTHER: No free air under the diaphragm. IMPRESSION: No acute cardiopulmonary pathology. Opacities in the right midzone which may be nodules versus summation shadow versus healing ribs frac tures. Follow-up advised. Reviewed, dictated and finalized at location A. IMPRESSION: No acute cardiopulmonary pathology. Opacities in the right midzone which may be nodules versus summation shadow ve rsus healing ribs fractures. Follow-up advised.
== END 2023-12-24 14:33 | disposition home or self-care (01) ==
LOC: GOSHIMG 14:34
PROVIDERS: PCP Family Medicine; Visit Provider Family Medicine
DX: J45.909 Unspecified asthma, uncomplicated (principal)
CPT/HCPCS: 71046

== ENCOUNTER 2023-12-24 15:30 | Outpatient (CLI) | payer MEDICARE, OTHER, SELFPAY ==
--- NOTE | ~2023-12-24 | US_ITS ---
BILATERAL LOWER EXTREMITY VENOUS ULTRASOUND Ordering provider: Halima Carson DO History: . R22.43 - Localized swelling, mass and lump, lower limb, b... . Comparison: None. FINDINGS: RIGHT LOWER EXTREMITY VEINS: --COMMON FEMORAL: Patent and free of thrombus. Normal compressibility, phasic flow and augmentation. --PROXIMAL SUPERFICIAL FEMORAL: Patent and free of thrombus. Normal compressibility, phasic flow and augmentation. --DISTAL SUPERFICIAL FEMORAL: Patent and free of thrombus. Normal compressibility, phasic flow and au gmentation. --POPLITEAL: Patent and free of thrombus. Normal compressibility, phasic flow and augmentation. --POSTERIOR TIBIAL: Patent and free of thrombus. Normal compressibility, phasic flow and augmentation . LEFT LOWER EXTREMITY VEINS: --COMMON FEMORAL: Patent and free of thrombus. Normal compressibility, phasic flow and augmentation. --PROXIMAL SUPERFICIAL FEMORAL: Patent and free of thrombus. Normal compressibility, phasic flow and augmentation. --DISTAL SUPERFICIAL FEMORAL: Patent and free of thrombus. Normal compressibility, phasic flow and au gmentation. --POPLITEAL: Patent and free of thrombus. Normal compressibility, phasic flow and augmentation. --POSTERIOR TIBIAL: Patent and free of thrombus. Normal compressibility, phasic flow and augmentation . Benson's cyst is seen in the left middle fossa measuring 4.5x 0.7 x 2.4 cm. IMPRESSION: Negative bilateral lower extremity venous US. No deep vein thrombosis. Reviewed, dictated and finalized at location A.
== END 2023-12-24 15:31 | disposition home or self-care (01) ==
LOC: ANHIMG 15:31
PROVIDERS: PCP Family Medicine; Visit Provider Family Medicine
DX: R22.43 Localized swelling, mass and lump, lower limb, bilateral (principal)
CPT/HCPCS: 93970

== ENCOUNTER 2023-12-29 12:49 | Outpatient (CLI) | payer MEDICARE, OTHER, SELFPAY ==
[2023-12-29 20:03] LABS: Anion Gap 7 mmol/L (4-12); Blood Urea Nitrogen 19 mg/dL (7-17); Calcium 9.7 mg/dL (8.4-10.2); Carbon Dioxide 33 mmol/L (22-30); Chloride 95 mmol/L (98-107); Estimated Glomerular Filt Rate 53; Glucose 106 mg/dL (65-110); Potassium 4.8 mmol/L (3.4-5.0); Sodium 135 mmol/L (137-145)
== END 2023-12-29 12:50 | disposition home or self-care (01) ==
LOC: ANHGOSHLAB 12:51
PROVIDERS: PCP Family Medicine; Visit Provider Family Medicine
DX: Z79.899 Other long term (current) drug therapy (principal)
CPT/HCPCS: 36415; 80048

== ENCOUNTER 2023-12-29 15:37 | Outpatient (CLI) | payer MEDICARE, OTHER, SELFPAY ==
--- NOTE | ~2023-12-29 | CT_ITS ---
CT Scan of the Chest without Contrast: Clinical Indication: Pulmonary nodule Technique: Contiguous sections were acquired throughout the chest without intravenous contrast. Dose reduction technique was used on this scan by utilizing automated exposure control and iterative recon struction technique. The dose-length product (DLP) was 95.53 mGy-cm. Findings: There is no evidence of any significant mediastinal, hilar or axillary lymphadenopathy. There is a cu rvilinear radiodense structure extending from the right main pulmonary artery across the main pulmona ry artery bifurcation into the left main pulmonary artery extending into the left upper lobar pulmona ry artery, suggestive of a retained catheter fragment. There is no evidence of pleural or pericardial effusion. 4 mm pleural-based nodule right upper lobe noted (axial image 36). There is minimal scarring at the l eft lung base. No other pulmonary nodule identified. Images through the upper abdomen reveal no abnormalities. There is mild T9 compression fracture at th e superior endplate region, possibly acute to subacute. Impression: Retained catheter fragment in the pulmonary arterial tree, extending from the right main across the m ain pulmonary artery bifurcation to the left main pulmonary artery, as detailed above. This is questi onably identified on prior radiographs dating back to 12/11/2021, however chronicity of this finding is unclear. If there are any prior chest CTs at other institutions for comparison, this would be extrem chris useful. 4 mm right upper lobe pleural-based pulmonary nodule. According to Fleischner Society criteria, for a low-risk patient, no further follow-up required. For a high-risk patient, consider 12 month follow-u p CT. Reviewed, dictated and finalized at location . Impression: Retained catheter fragment in the pulmonary arterial tree, extending from the r ight main across the main pulmonary artery bifurcation to the left main pulmona ry artery, as detailed above. This is questionably identified on prior radiogra phs dating back to 12/11/2021, however chronicity of this finding is unclear. If there are any prior chest CTs at other institutions for comparison, this would be extremely useful. 4 mm right upper lobe pleural-based pulmonary nodule. According to Fleischner S ociety criteria, for a low-risk patient, no further follow-up required. For a h igh-risk patient, consider 12 month follow-up CT.
== END 2023-12-29 15:38 | disposition home or self-care (01) ==
LOC: ANHIMG 15:37
PROVIDERS: PCP Family Medicine; Visit Provider Family Medicine
DX: R93.89 Abnormal findings on diagnostic imaging of other specified body structures (principal); R91.1 Solitary pulmonary nodule; S22.39XA Fracture of one rib, unspecified side, initial encounter for closed fracture; X58.XXXA Exposure to other specified factors, initial encounter
CPT/HCPCS: 36415; 71250; 80048

== ENCOUNTER 2024-02-29 10:23 | Outpatient (CLI) | payer MEDICARE, OTHER, SELFPAY ==
--- NOTE | ~2024-02-29 | XR_ITS ---
XR chest 2V Ordering provider: Halima Carson DO History: 78 years Female with . R05 - Cough . Comparison: None. FINDINGS: MEDIASTINUM: The cardiac silhouette is not enlarged. LUNGS: No infiltrates, effusions or pneumothorax. OTHER: No free air under the diaphragm. Sclerotic changes seen in the T10 vertebra which may be degenerative or due to compression fracture. Clinical correlation and evaluation for tenderness in the area is advised. IMPRESSION: No acute cardiopulmonary pathology. Possible compression fracture in the superior endplate of T10. Clinical correlation advised. Reviewed, dictated and finalized at location A. EMS LIBRARIAN IMPRESSION: No acute cardiopulmonary pathology. Possible compression fracture in the superior endplate of T10. Clinical correla tion advised.
== END 2024-02-29 10:24 | disposition home or self-care (01) ==
LOC: GOSHIMG 10:25
PROVIDERS: PCP Family Medicine; Visit Provider Family Medicine
DX: R05.9 Cough, unspecified (principal)
CPT/HCPCS: 71046

== ENCOUNTER 2024-03-24 13:35 | Emergency (ER) | payer MEDICARE, OTHER, SELFPAY ==
--- NOTE | ~2024-03-24 | XR_ITS ---
Portable chest x-ray Comparison: 02/29/2024 Clinical History: Wheezing Findings: Lungs are clear, without focal consolidation or pleural effusion. Cardiomediastinal silho uette is stable. Bones and soft tissues are unremarkable. Impression: Normal chest. Reviewed, dictated and finalized at [facility]. CONSULTANT Impression: Normal chest.
[2024-03-24 13:35] VITALS: O2SAT 96
[2024-03-24 13:38] VITALS: BP 155/59; PULSE 65; RESP 16; TEMP 37; O2SAT 96
[2024-03-24 14:11] LABS: Basophils Absolute Auto 0.03 K/mm3 (0.00-0.10); Basophils Percent Auto 0.4 % (0.0-1.0); Eosinophils Absolute Auto 0.41 K/mm3 (0.02-0.50); Eosinophils Percent Auto 5.5 % (1.0-6.0); Hematocrit 37.6 % (35.0-42.0); Hemoglobin 11.9 g/dL (11.7-13.8); Immature Granulocyte Absolute 0.02 K/mm3 (0.00-0.00); Immature Granulocyte Percent A 0.3 % (0.0-0.0); Lymphocytes Absolute Auto 2.89 K/mm3 (1.10-4.50); Lymphocytes Percent Auto 38.5 % (18.0-42.0); Mean Corpuscular HGB Conc 31.6 g/dL (32-36); Mean Corpuscular Hemoglobin 26.6 pg (27.0-31.0); Mean Corpuscular Volume 83.9 fL (78.0-102.0); Mean Platelet Volume 8.8 fl (9.2-11.8); Monocytes Absolute Auto 0.55 K/mm3 (0.10-0.90); Monocytes Percent Auto 7.3 % (2.0-11.0); Neutrophils Absolute Auto 3.61 K/mm3 (1.70-7.20); Platelet Count Result 284 K/mm3 (150-420); Red Blood Count 4.48 M/mm3 (4.20-5.40); Red Cell Distribution Width 14.4 % (11.6-14.4); White Blood Count 7.5 K/mm3 (4.8-10.8)
[2024-03-24] MEDS: IPRATROPIUM 0.5 MG/ALBUTEROL SULFATE 2.5 MG AMPUL.NEB 3 ML INHALATION (14:14)
[2024-03-24 14:15] VITALS: PULSE 60; RESP 16; O2SAT 96
--- NOTE | 2024-03-24 14:18 | PC.NURSE ---
COVID PCR test administered & sent to lab
[2024-03-24 14:21] VITALS: PULSE 72; RESP 16; O2SAT 100
--- NOTE | 2024-03-24 14:31 | PC.NURSE ---
preliminary blood cultures x2 reviewed. gram positive cocci in anaerobic bottle only. awaiting final reports
[2024-03-24 14:33] LABS: Alanine Aminotransferase 19 U/L (14-59); Albumin Level 3.1 g/dL (3.4-5.0); Alkaline Phosphatase 94 U/L (46-116); Anion Gap 5 mmol/L (4-12); Aspartate Amino Transferase 13 U/L (15-37); Bilirubin,Total 0.3 mg/dL (0.00-1.00); Blood Urea Nitrogen 12 mg/dL (7-18); Calcium 10.3 mg/dL (8.5-10.1); Carbon Dioxide 33 mmol/L (21-32); Chloride 101 mmol/L (98-108); Estimated CRCL calculation 39 ml/min; Estimated Glomerular Filt Rate > 60; Glucose 150 mg/dL (70-99); NT Pro B Type Natriuretic Pept 198 pg/mL (0-450); Osmolality Calculated 290 mOsm/kg (285-295); Potassium 4.2 mmol/L (3.5-5.1); Sodium 139 mmol/L (136-145); Total Protein 6.6 g/dL (6.4-8.2)
[2024-03-24 14:37] LABS: Influenza A QL RT-PCR Negative (Negative); Influenza B QL RT-PCR Negative (Negative); RSV RNA, RT-PCR Negative (Negative); SARS-CoV-2 RNA PCR Negative (Negative)
--- NOTE | 2024-03-24 14:45 | ED_ITS ---
HPI - URI/Sore Throat General Chief Complaint: Upper Respiratory Infection Stated Complaint: cough Time Seen by Provider: 03/24/24 13:57 Source: patient and family Mode of arrival: ambulatory Limitations: no limitations History of Present Illness HPI Narrative: this is a 78-year-old female with cough and congestion with audible wheezing, has been having some audible wheezing over the past month often on an intermittently currently was seen pain management and was told to go to the emergency department for further evaluation. Patient O2 sats 100% on room air is currently not short of breath no chest pain or shortness nausea vomiting. MD elicited complaint: cough Onset (ago): month(s) Consistency: intermittent Severity: mild Related Data Home Medications ?Medication ?Instructions ?Recorded ?Confirmed ?Last Taken ?Type cholecalciferol (vitamin D3) 25 1,000 unit PO DAILY 03/09/19 03/24/24 Unknown History mcg (1,000 unit) capsule aspirin 81 mg tablet,delayed 81 mg PO DAILY 11/07/19 03/24/24 11/07/19 History release (Adult Low Dose Aspirin) amlodipine 5 mg tablet 5 mg PO DAILY 06/02/23 03/24/24 Unknown History carvedilol 12.5 mg tablet 12.5 mg PO Q12H 06/02/23 03/24/24 Unknown History duloxetine 60 mg capsule,delayed 60 mg PO DAILY 06/02/23 03/24/24 Unknown History release vitamin B complex 1 cap PO DAILY 06/02/23 03/24/24 Unknown History Allergies Allergy/AdvReac Type Severity Reaction Status Date / Time Iodinated Contrast Media Allergy Intermediate HIVES, Verified 03/24/24 14:09 TONGUE SWELLED Sulfa (Sulfonamide Allergy Unknown tongue Verified 03/24/24 14:09 Antibiotics) swelling Review of Systems 2 Review of Systems: All systems reviewed & are unremarkable except as noted in HPI and below PMFSH Past Medical History Medical History Asthma Hypothyroidism (acquired) Restless legs syndrome Essential (primary) hypertension Mixed hyperlipidemia Surgical History Surgical History History of back surgery History of repair of rotator cuff Hx of tonsillectomy History of appendectomy H/O arthroscopy of right knee History of carpal tunnel release History of knee replacement Hx of cholecystectomy Family History Family History Mother Family history of glaucoma Hypertension Family history of kidney disease Cerebrovascular accident Family history of coronary artery disease Sibling Malignant neoplasm of prostate Family history of coronary artery disease Family history of cardiovascular disease Family history of kidney disease Grandparent Family history of coronary artery disease Family history of cardiovascular disease Social History Social History Social History: Caffeine-daily Smoking status: Never smoker Alcohol intake: never Substance use: never Substance use type: does not use Lack of Transportation: No Lack of Food: Never True Current Housing: I Have Housing Concerned About Future Housing: No Difficulty Paying Gas/Electric Bills: No Difficulty Paying for Meds: No Currently Unemployed: No Education: High School Diploma/GED Difficulty w/ Childcare or Family Care: No Living arrangements: with family Occupation/Education: retired Gender identity (if verbalized by the patient): Female Sexual Orientation (if Verbalized by the Patient): Straight or Heterosexual Spiritual care concerns: No Agree to blood products: Yes Exam 2 Const: General: healthy appearing Nutritional Appearance: well nourished Orientation/consciousness: patient oriented x3 Limitations: no limitations Eyes: Conjunctivae: conjunctivae normal Chest: Chest palpation & inspection: normal inspection of the chest Resp: Effort & Inspection: normal respiratory effort Auscultation: wheezes Cardio: Rate: regular rate Rhythm: regular rhythm GI: GI Palp: Yes Soft to palpation Auscultation: normal bowel sounds : General: Yes bladder normal to palpation Course Course Emergency Course: Patient had chest x-ray which shows no acute cardiopulmonary abnormalities blood work performed shows no acute abnormalities, patient received a breathing treatment and after reassessment lung sounds have improved. Vital Signs Vital signs: Vital Signs Pulse Oximetry 96 03/24/24 13:35 Oxygen Delivery Room Air 03/24/24 13:35 Temperature 37.0 C 03/24/24 13:38 Pulse Rate 72 03/24/24 14:21 Respiratory Rate 16 03/24/24 14:21 Blood Pressure 155/59 H 03/24/24 13:38 Pulse Oximetry 100 03/24/24 14:21 Oxygen Delivery Room Air 03/24/24 13:38 MDM - URI/Sore Throat Lab Data 03/24/24 14:06 03/24/24 14:06 Labs: Lab Results 03/24/24 03/24/24 Range/Units 13:57 14:06 WBC 7.5 (4.8-10.8) K/mm3 RBC 4.48 (4.20-5.40) M/mm3 Hgb 11.9 (11.7-13.8) g/dL Hct 37.6 (35.0-42.0) % MCV 83.9 (78.0-102.0) fL MCH 26.6 L (27.0-31.0) pg MCHC 31.6 L (32-36) g/dL RDW 14.4 (11.6-14.4) % Plt Count 284 (150-420) K/mm3 MPV 8.8 L (9.2-11.8) fl Immature Gran % (Auto) 0.3 H (0.0-0.0) % Neut % (Auto) 48.0 L (50.0-70.0) % Lymph % (Auto) 38.5 (18.0-42.0) % [place] % (Auto) 7.3 (2.0-11.0) % Eos % (Auto) 5.5 (1.0-6.0) % Baso % (Auto) 0.4 (0.0-1.0) % Lymph # (Auto) 2.89 (1.10-4.50) K/mm3 [place] # (Auto) 0.55 (0.10-0.90) K/mm3 Eos # (Auto) 0.41 (0.02-0.50) K/mm3 Baso # (Auto) 0.03 (0.00-0.10) K/mm3 Abs Immat Gran (auto) 0.02 H (0.00-0.00) K/mm3 Absolute Neuts (auto) 3.61 (1.70-7.20) K/mm3 Absolute Nucleated RBC 0.00 (0.00-0.00) K/mm3 Nucleated RBC % 0.0 (0-0.0) % Sodium 139 (136-145) mmol/L Potassium 4.2 (3.5-5.1) mmol/L Chloride 101 (98-108) mmol/L Carbon Dioxide 33 H (21-32) mmol/L Anion Gap 5 (4-12) mmol/L BUN 12 (7-18) mg/dL Creatinine 0.83 (0.55-1.02) mg/dL Estim Creat Clear Calc 39 ml/min Estimated GFR > 60 (59 - ) Glucose 150 H (70-99) mg/dL Calculated Osmolality 290 (285-295) mOsm/kg Lactic Acid 1.0 (0.4-2.0) mmol/L Calcium 10.3 H (8.5-10.1) mg/dL Total Bilirubin 0.3 (0.00-1.00) mg/dL AST 13 L (15-37) U/L ALT 19 (14-59) U/L Alkaline Phosphatase 94 (46-116) U/L NT-Pro-B Natriuret Pep 198 (0-450) pg/mL Total Protein 6.6 (6.4-8.2) g/dL Albumin 3.1 L (3.4-5.0) g/dL Influenza A (RT-PCR) Negative (Negative) Influenza B (RT-PCR) Negative (Negative) RSV (RT-PCR) Negative (Negative) SARS-CoV-2 RNA (RT-PCR) Negative (Negative) Critical Care Time Critical Care Time Critical Care Time: No Discharge Plan Discharge Clinical Impression: Asthma Qualifiers: Asthma severity: mild Asthma persistence: intermittent Asthma complication type: unspecified Qualified Code(s): J45.20 - Mild intermittent asthma, uncomplicated Patient Disposition: Home, Self-Care Condition: Stable Instructions: Antibiotic Form, Asthma (ED), Acute Bronchitis (ED) Additional Instructions: advised to take medication as prescribed and follow-up with primary for further evaluation. Patient Language: Danish Prescriptions: New azithromycin [Zithromax Z-Mauricio] 250 mg tablet See Rx Instructions .ROUTE .COMPLEX Qty: 6 0RF Rx Instructions: For 250 mg dose pack: take 500 mg today (day 1), then 250 mg for 4 days (days 2-5) ProAir RespiClick 90 mcg/actuation aerosol powdr breath activated 2 inh inhalation QID PRN (Reason: shortness of breath or wheezing) Qty: 1 0RF methylprednisolone [Medrol (Mauricio)] 4 mg tablets,dose pack See Rx Instructions .ROUTE .COMPLEX Qty: 21 0RF Rx Instructions: orally per package directions No Action cholecalciferol (vitamin D3) 1,000 unit capsule 1,000 unit PO DAILY vitamin B complex Capsule 1 cap PO DAILY amlodipine 5 mg tablet 5 mg PO DAILY duloxetine 60 mg capsule,delayed release(DR/EC) 60 mg PO DAILY Rx Instructions: take by mouth every night at bedtime carvedilol 12.5 mg tablet 12.5 mg PO Q12H Rx Instructions: must administer with a meal/food aspirin [Adult Low Dose Aspirin] 81 mg Tablet,Delayed Release (Dr/Ec) 81 mg PO DAILY omeprazole 40 mg capsule,delayed release(DR/EC) See Rx Instructions .ROUTE .COMPLEX Qty: 90 1RF Dose Instruction: TAKE 1 CAPSULE DAILY Rx Instructions: TAKE 1 CAPSULE DAILY losartan-hydrochlorothiazide 100-12.5 mg tablet 1 tablet PO DAILY Qty: 90 0RF memantine 5 mg tablet 5 mg PO QAM Qty: 90 1RF clonidine HCl 0.1 mg tablet See Rx Instructions .ROUTE .COMPLEX Qty: 180 1RF Dose Instruction: TAKE 1 TABLET TWICE A DAY Rx Instructions: TAKE 1 TABLET TWICE A DAY clonazepam 1 mg tablet 2 mg PO QHS PRN (Reason: insomnia) Qty: 60 3RF gabapentin 400 mg capsule 1,600 mg PO DAILY Qty: 360 1RF levothyroxine 88 mcg tablet 88 mcg PO DAILY Qty: 90 1RF alendronate 70 mg tablet 70 mg PO WEEKLY Qty: 12 1RF Follow-up/Referrals: Halima Carson DO [Primary Care Provider] - Time of Disposition: 14:50
[2024-03-24 15:00] VITALS: BP 139/79; PULSE 77; RESP 18; TEMP 36.8; O2SAT 97
== END 2024-03-24 15:00 | disposition home or self-care (01) ==
PROVIDERS: Emergency Provider Emergency Medicine; PCP Family Medicine
DX: J45.20 Mild intermittent asthma, uncomplicated (principal); E78.2 Mixed hyperlipidemia; I10 Essential (primary) hypertension; E03.9 Hypothyroidism, unspecified; Z79.899 Other long term (current) drug therapy; Z79.82 Long term (current) use of aspirin; Z20.822 Contact with and (suspected) exposure to COVID-19
CPT/HCPCS: 36415; 71045; 80053; 83605; 83880; 85025; 87637; 94640; 99283

== ENCOUNTER 2024-04-08 15:29 | Outpatient (NON) | payer MEDICARE, OTHER, SELFPAY | END 2024-04-08 15:30 | disposition home or self-care (01) | PROVIDERS: PCP Family Medicine; Visit Provider Family Medicine | DX: N39.0 Urinary tract infection, site not specified (principal) | CPT/HCPCS: 87086 ==

== ENCOUNTER 2024-04-26 10:37 | Outpatient (NON) | payer MEDICARE, OTHER, SELFPAY ==
[2024-04-26 14:28] LABS: Add Urine Microscopic? YES; Appearance Urine Clear (Clear); Bacteria Urine None Seen /hpf; Bilirubin Urine Negative (Negative); Blood Urine Negative (Negative); Color Urine Dark Yellow (Yellow); Glucose Urine UA Negative (Negative); Ketones Urine Negative (Negative); Leukocyte Esterase Ur 1+ LEU/UL (Negative); Mucus Urine Present /lpf; Need Manual Microscopic Reviewed; Nitrate Urine Negative (Negative); Protein Urine Negative (Negative); RBC Urine 0-2 /hpf (0-2); Specific Grav Ur 1.014 (1.001-1.035); Squamous Epithelial Cell Urine Occasional /hpf (Few); Urobilinogen Urine 0.2 mg/dL (<2.0); pH Urine 5.5 (5.0-9.0)
--- OUTSIDE RECORDS SUMMARY | 2024-04-28 17:30 | XMS_ITS ---
Author Organization [facility], Address [address] [facility] [address] [place] [address] Care Team Providers Care Gold Tooler Name Role Phone KeithreinaHalima glynn Primary Care Provider Omar Ewing Unavailable [phone] Farhan Buck Unavailable Unavailable REASON FOR VISIT Review of diagnostic studies Encounters Encounter Location Date Provider Diagnosis [facility] [address] [facility] [address] [place] [address] 10/28/2022 Omar Sosa PLAN OF TREATMENT No Information
--- OUTSIDE RECORDS SUMMARY | 2024-04-28 17:30 | XMS_ITS ---
Author Organization [facility], MICHAEL Address [address] [place] [address] Care Team Providers Care Farm Forestry And Garden Workers Name Role Phone Halima Carson Primary Care Provider UnavailOmar Emery Unavailable [phone] Farhan Buck Unavailable Unavailable ALLERGIES Allergen (clinical [...] and Coronal Reconstruction Reviewed date:02/15/2024 03:04:26 PM Interpretation:medicare/[employer] Performing Lab: Notes/Report: medicare/[employer] REASON FOR VISIT BACK PAIN MEDICATIONS Medication [...] PC [address] [place] [address] 01/15/2024 Omar Sosa Lumbar radiculopathy M54.16 ; [...]
--- OUTSIDE RECORDS SUMMARY | 2024-04-28 17:30 | XMS_ITS | Clinical Summary ---
Author Organization [facility] [address] [facility] [address] [place] [address] Care Team Providers Care Forging Press Lever Tender Name Role Phone Halima Carson DO Primary Care Provider [phone]- [phone] Allergies Active Allergy Reactions Criticality Noted Date Comments Sulfa (Sulfonamide Antibiotics) Unknown 12/06 Medications budesonide-formo teroL (SYMBICORT) 160-4.5 mcg/actuation inhaler 2 times daily Active traMADoL (ULTRAM) 50 mg tablet 12/05/19 22 Active fenofibrate (TRIGLIDE) 160 mg tablet fenofibrate 160 mg tablet Active levothyroxine sodium (TIROSINT) 100 mcg capsule levothyroxine 100 mcg capsule Take 1 capsule every day by oral route. 10/28/19 20 Active omeprazole (PriLOSEC) 40 mg capsule omeprazole 40 mg capsule,delayed release Active gabapentin (NEURONTIN) 400 mg capsule gabapentin 400 mg capsule Active clonazePAM (KlonoPIN) 1 mg tablet clonazepam 1 mg tablet Active cloNIDine (CATAPRES) 0.1 mg tablet Take 1 tablet (0.1 mg total) by mouth 2 (two) times a day 12/13/19 22 Active lubiprostone (AMITIZA) 24 mcg capsule Take 1 capsule (24 mcg total) by mouth 2 (two) times a day with meals Active aspirin 81 mg chewable tablet Take 1 tablet (81 mg total) by mouth daily Active memantine (NAMENDA) 5 mg tablet Take 1 tablet (5 mg total) by mouth every morning 09/13/[address] (CYMBALTA) 30 mg capsule TAKE 1 CAPSULE BY MOUTH AT BEDTIME FOR 7 DAYS TOLERATED. INCREASE TO 2 CAPSULES BY MOUTH AT BEDTRIME TOLERATED 09/26/19 23 Active losartan-hydroCH LOROthiazide (HYZAAR) 100-12.5 mg per tablet Take 1 tablet by mouth daily 90 tablet 3 11/01/19 23 Active alendronate (FOSAMAX) 70 mg tablet Take 1 tablet (70 mg total) by mouth every 7 days 03/16/20 23 Active carvediloL (COREG) 12.5 mg tabletIndication s:Essential hypertension TAKE 1 TABLET(12.5 MG) BY MOUTH TWICE DAILY WITH MEALS 180 tablet 2 07/22/19 24 Active amLODIPine (NORVASC) 5 mg tabletIndication s:Essential hypertension TAKE 1 TABLET(5 MG) BY MOUTH DAILY 90 tablet 01/25/20 24 Active Active Problems Problem Noted Date Diagnosed Date Foreign object left in body during heart cathete rization 01/08/2024 Assessment & Plan (01/08/2024 10:08 AM CDT): Patient reports having multiple ports or PICC lines during her hospitalizations for spinal surgery, I suspect this is a retained PICC line that has been present for at least 2-3 years based on x-rays. At this point I would not recommend any intervention as she has been asymptomatic and the catheter at this point would be endothelialized. Removal would require a sternotomy. And follow up with me as needed. Hypothyroidism 07/24/2023 Hyperlipidemia LDL goal <100 01/02/2022 Assessment & Plan (01/08/2024 10:08 AM CDT): Recommend statin therapy. Diastolic dysfunction 01/02/2022 Essential hypertension 01/02/2022 Assessment & Plan (01/08/2024 10:08 AM CDT): Stable continue amlodipine Leg edema 01/02/2022 Surgical History Surgery Date Site/Laterality Comments [place] CHOLECYSTECTOMY Cholecystectomy - (Added by TW Conv) [place] ARTHRP KNE CONDYLE&PLATU MEDIAL&LAT COMPARTMENTS Total Knee Arthroplasty - partial (Added by TW Conv) [place] INJ LUMBAR/SACRAL,W/WO CNTRST Corticosteroid Injection Interlaminar Approach Lumbar - (Added by TW Conv) Medical History Medical History Date Comments Hypertension Hyperlipidemia Family History Relation Name Status Comments Father Mother Social History Tobacco Use Types Packs/Day Years Used Date Smoking Tobacco: Never Tobacco Cessation:Counseling Given: Not Answered Comments Unknown Sex and Gender Information Value Date Recorded Sex Assigned at Not on file 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 Gender Identity Not on file Sexual Orientation Not on file Obstetrics History Last Filed Vital Signs Vital Sign Reading Time Taken Comments Blood Pressure 163/85 01/06/2024 10:33 AM CDT Pulse 67 01/06/2024 10:33 AM CDT Temperature - - Respiratory Rate - - Oxygen Saturation 97% 01/06/2024 10:33 AM CDT Inhaled Oxygen Concentration - - Weight 63.5 kg (140 lb) 07/24/2023 9:49 AM CDT Height 152.4 cm (5') 07/24/2023 9:49 AM CDT Body Mass Index 27.34 07/24/2023 9:49 AM CDT Plan of Treatment Health Maintenance Due Date Last Done Comments Depression Screening 1944 Fall Risk Assessment 1944 Hepatitis C Screening 1944 Osteoporosis Screening-Bone Density Scan 1944 DTaP/Tdap/Td Vaccine (1 - Tdap) 11/05/1955 Hepatitis B Screening 1962 Zoster Vaccine (1 of 2) 1994 Pneumococcal vaccine 65+ (1 of 1 - PCV) 2009 Well Visit 65+ 2009 Covid-19 Vaccine (3 - season) 12/06/202304/2020, 06/07/2020 Influenza Vaccine (#1) 2023 03/28/2021, 2017 Insurance MEDICARE [employer] MEDICARE [facility] Address: [id number] [place] [address] [employer] Care Teams Forging Press Lever Tender Relationship Specialty Start Date End Date Halima Carson DO [address] [place] [address] [place] [address] PCP - General Family Medicine 07/24/23
--- OUTSIDE RECORDS SUMMARY | 2024-04-28 17:30 | XMS_ITS ---
Author Organization [facility], Address [address] [place] [address] Care Team Providers Care Lard Bleacher Name Role Phone Halima Carson Primary Care Provider UnavailOmar Emery Unavailable [phone] Farhan Buck Unavailable Unavailable ALLERGIES Allergen (clinical [...] MICHAEL [address] [place] [address] 01/18/2024 Omar Sosa Spondylolisthesis of lumbar region [...]
--- OUTSIDE RECORDS SUMMARY | 2024-04-28 17:30 | XMS_ITS | Referral Summary ---
Author Organization [facility] [place] [facility] [place] [address] [facility] [address] Address [address] [place] [address] Care Team Providers Care Medical Insurance Biller Name Role Phone Halima Carson DO Primary Care Provider +1- [phone] Allergies Active Allergy Reactions Criticality Noted Date [...] CDT): Stable continue amlodipine Leg edema 01/02/2022 Social History Tobacco Use Types Packs/Day Years Used Date Smoking Tobacco: Never Tobacco Cessation:Counseling Given: Not Answered Comments Unknown Sex and Gender Information Value Date Recorded Sex Assigned at Not on file 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
--- OUTSIDE RECORDS SUMMARY | 2024-04-28 17:31 | XMS_ITS | Patient Health Record ---
Author Organization [facility], Address [address] [place] [address] Care Team Providers Care Commercial Underwriter Name Role Phone Halima Carson Primary Care Provider Omar Ewing Unavailable [phone] Farhan Buck Unavailable Unavailable ALLERGIES Allergen (clinical [...] and Coronal Reconstruction Reviewed date:02/15/2024 03:04:26 PM Interpretation:medicare/[employer] Performing Lab: Notes/Report: medicare/[employer] REASON FOR REFERRAL No Information MEDICATIONS Medication SIG (Take, Route, Frequency, Duration) Notes Start Date End Date Status Potassium Chloride A ctive Omeprazole Active Tylenol Active DULoxetine HCl Activ e Memantine HCl Active clonazePAM Active Alendronate Sodium A ctive amLODIPine Besylate Active Gabapentin 400 Mg QID Active cloNIDine HCl Active Losartan Potassium-HCTZ Active Furosemide Active Levothyroxine Sodium Active Aspirin 81 Active D3 Active Carvedilol Active PROBLEMS Problem Type ICD Code Onset Dates Problem Status W/U Status Risk SNOMED Code Notes Problem Degenerative spondylolisthesis (M43.10) Active confirmed Degenerative spondylolisthesis (0869638) Problem Spondylolisthesis of lumbar region (M43.16) Active confirmed Acquired spondylolisthesis (789774059) Problem DDD (degenerative disc disease), lumbar (M51.36) Active confirmed Degenerative disc disease (04292236) Problem 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) Active confirmed Displacement of lumbar intervertebral disc without myelopathy (20020110) Problem 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 Lumbosacral spondylosis without myelopathy (39746863) Problem Disc displacement, lumbar (M51.26) Active confirmed Displacement of lumbar intervertebral disc without myelopathy (20020110) Problem Sacroiliitis (M46.1) Active confirmed Sacroiliitis (81467702) Problem Spinal enthesopathy, 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) Active confirmed Spinal enthe sopathy (48886406) Problem Osteoporosis (M81.0) Active confirmed Osteoporosis (25368220) Problem Spondylolisthesis (M43.10) Active confirmed Spondylolisthes is (454518471) Problem Degenerative disc disease, lumbar (M51.36) Active confirmed Degeneration of lumbar intervertebral disc (24647176) 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 Lumbosacral spondylosis without myelopathy (79202938) VITAL SIGNS Height 60 in 01/18/2024 Weight 145 lbs 01/18/2024 BMI 28.32 kg/m2 01/18/2024 Encounters Encounter Location Date Provider Diagnosis [facility] [address] [address] 01/15/2024 Omar Sosa Lumbar radiculopathy M54.16 ; Spondylolisthesis of lumbar region M43.16 and Other low back pain M54.59 [facility] [address] [address] 01/18/2024 Omar Sosa Spondylolisthesis of lumbar region M43.16 ; Lumbar radiculitis M54.16 and Other low back pain M54.59 ASSESSMENTS Encounter Date Diagnosis Assessment Notes Treatment Notes Treatment Clinical Notes 01/15/2024 Lumbar radiculopathy (ICD-10 - M54.16) 01/18/2024 Spondylolisthesis of lumbar region (ICD-10 - M43.16) 01/18/2024 Lumbar radiculitis (ICD-10 - M54.16) 01/15/2024 Spondylolisthesis of lumbar region (ICD-10 - M43.16) 01/18/2024 Other low back pain (ICD-10 - M54.59) 01/15/2024 Other low back pain (ICD-10 - M54.59) PLAN OF TREATMENT Pending Test Test Name Order Date CBC With Differential/Platelet 2 CBC With Differential/Platelet 1 PT AND PTT 05/31/2021 PT AND PTT 02/20/2021 Chem-Comprehensive 05/31/2021 Chem-Comprehensive 02/20/2021 Insurance Providers Payer Name Payer Address Payer Phone Subscriber Number Group Number Insured Name Patient Relationship to Insured Coverage Start Date Coverage End Date Medicare [place] [address] [address] [place] [address] [id number] Cheri Nath Self - patient is the insured 0 [employer] [address] [place] [phone] [id number] Plan N Cheri Nath Self - patient is the insured MEDICAL (GENERAL) HISTORY Medical History History ICD Code Hypertension Asthma Shortness of breath Thyroid disease Osteopenia Arthritis Back pain HNP Lumbar radiculopathy Spinal stenosis H/O non-union IBS Constipation Denies h/o emotional/psychiatric disorde r Denies h/o drug/chemical dependency Surgical History Surgery Date(Month/Year) Cholecystectomy 2007 R. TKR 2006 R. CTR 2008 R. Knee scope 2009 L. RCR 2019 L3-5 LDL, L4-5 TLIF, posterolateral fusi on 03/26/2021 L4-5 GREGORY, jigar L5 screws, L4 larger repla werner screws 06/11/2021 Pain pump Hospitalization History Reason Date(Month/Year) Has been hospitalized
== END 2024-04-26 10:38 | disposition home or self-care (01) ==
PROVIDERS: PCP Family Medicine; Visit Provider Nurse Practitioner
DX: R41.0 Disorientation, unspecified (principal)
CPT/HCPCS: 81001; 87086

== ENCOUNTER 2024-05-04 11:29 | Outpatient (NON) | payer MEDICARE, OTHER, SELFPAY ==
--- OUTSIDE RECORDS SUMMARY | 2024-05-04 12:52 | XMS_ITS | Referral Summary ---
Author Organization [facility] [address] 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
--- OUTSIDE RECORDS SUMMARY | 2024-05-04 12:52 | XMS_ITS ---
Author Organization [facility] Address [address] [place] [address] Care Team Providers Care Pediatric Critical Care Nurse Name Role Phone Halima Carson Primary Care Provider UnavailOmar Emery Unavailable [phone] Farhan Buck Unavailable Unavailable ALLERGIES Allergen (clinical [...] and Coronal Reconstruction Reviewed date:02/15/2024 03:04:26 PM Interpretation:medicare/[employer] Performing Lab: Notes/Report: medicare/[employer] REASON FOR VISIT BACK PAIN MEDICATIONS Medication [...] PC [address] [place] [address] 01/15/2024 Omar Sosa Lumbar radiculopathy M54.16 ; [...]
--- OUTSIDE RECORDS SUMMARY | 2024-05-04 12:52 | XMS_ITS ---
Author Organization [facility], Address [address] [place] [address] Care Team Providers Care Farm Crops Teacher Name Role Phone Halima Carson Primary Care Provider UnavailOmar Emery Unavailable [phone] Farhan Buck Unavailable Unavailable ALLERGIES Allergen (clinical [...] MICHAEL [address] [place] [address] 01/18/2024 Omar Sosa Spondylolisthesis of lumbar region [...]
--- OUTSIDE RECORDS SUMMARY | 2024-05-04 12:52 | XMS_ITS | Patient Health Record ---
Author Organization [facility], Address [address] [facility] [address] [place] [address] Care Team Providers Care Senior Loan Processor Name Role Phone Halima Carson Primary Care Provider Omar Ewing Unavailable [phone] Farhan Buck Unavailable Unavailable ALLERGIES Allergen (clinical [...] and Coronal Reconstruction Reviewed date:02/15/2024 03:04:26 PM Interpretation:medicare/[employer] Performing Lab: Notes/Report: medicare/[employer] REASON FOR REFERRAL No Information MEDICATIONS Medication [...] Degenerative spondylolisthesis (M43.10) Active confirmed Degenerative spondylolisthesis (8622250) Problem Spondylolisthesis of lumbar region (M43.16) Active confirmed Acquired spondylolisthesis (130484693) Problem DDD (degenerative disc disease), lumbar (M51.36) Active confirmed Degenerative disc disease (22317915) Problem 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) Active confirmed Displacement of lumbar intervertebral disc without myelopathy (20020110) Problem 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 Lumbosacral spondylosis without myelopathy (33701950) Problem Disc displacement, lumbar (M51.26) Active confirmed Displacement of lumbar intervertebral disc without myelopathy (20020110) Problem Sacroiliitis (M46.1) Active confirmed Sacroiliitis (41891778) Problem Spinal enthesopathy, 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) Active confirmed Spinal enthe sopathy (78008868) Problem Osteoporosis (M81.0) Active confirmed Osteoporosis (60949588) Problem Spondylolisthesis (M43.10) Active confirmed Spondylolisthes is (932426642) Problem Degenerative disc disease, lumbar (M51.36) Active confirmed Degeneration of lumbar intervertebral disc (21755233) 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 Lumbosacral spondylosis without myelopathy (58836720) VITAL SIGNS Height 60 in 01/18/2024 Weight 145 lbs 01/18/2024 BMI 28.32 kg/m2 01/18/2024 Encounters Encounter Location Date Provider Diagnosis [facility] [address] [address] 01/15/2024 Omar Sosa Lumbar radiculopathy M54.16 ; Spondylolisthesis of lumbar region M43.16 and Other low back pain M54.59 [facility] [address] [address] 01/18/2024 Omar Sosa Spondylolisthesis of lumbar region [...] PTT 05/31/2021 PT AND PTT 02/20/2021 Chem-Comprehensive 02/20/2021 Chem-Comprehensive 05/31/2021 Insurance Providers Payer Name Payer Address Payer Phone Subscriber Number Group Number Insured Name Patient Relationship to Insured Coverage Start Date Coverage End Date Medicare [place] [address] [address] [place] [address] [id number] Cheri Nath Self - patient is the insured 0 [employer] [address] [place] [phone] [id number] Plan N Cheri Nath Self - patient [...]
--- OUTSIDE RECORDS SUMMARY | 2024-05-04 12:52 | XMS_ITS | Clinical Summary ---
Author Organization [facility] [address] [facility] [address] Address [address] [place] [address] Care Team Providers Care De Icer Name Role Phone Halima Carson DO Primary Care Provider +1- [phone] Allergies Active Allergy Reactions Criticality Noted Date [...] 01/02/2022 Surgical History Surgery Date Site/Laterality Comments NE CHOLECYSTECTOMY Cholecystectomy - (Added by TW Conv) NE ARTHRP KNE CONDYLE&PLATU MEDIAL&LAT COMPARTMENTS Total Knee Arthroplasty - partial (Added by TW Conv) NE INJ LUMBAR/SACRAL,W/WO CNTRST Corticosteroid Injection Interlaminar Approach [...] on file 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
[2024-05-04 19:51] LABS: Creatinine Urine 47.3 mg/dL
[2024-05-04 20:11] LABS: Creatinine 24 Hour Urine 0.9 gm/24 (0.8-1.8); Total Volume 24 Hour Urine 2000 ml
== END 2024-05-04 11:30 | disposition home or self-care (01) ==
LOC: ANHGOSHLAB 11:32
PROVIDERS: Visit Provider Internal Medicine Endocrinology, Diabetes & Metabolism
DX: E83.52 Hypercalcemia (principal); E03.9 Hypothyroidism, unspecified; M81.0 Age-related osteoporosis without current pathological fracture
CPT/HCPCS: 81050; 82340; 82570

== ENCOUNTER 2024-05-11 13:08 | Outpatient (CLI) | payer MEDICARE, OTHER, SELFPAY ==
--- NOTE | ~2024-05-11 | DEXA_ITS ---
Bone Density Report Name: ADRIA PHELPS Age: 78 Sex: Female Ethnicity: White Date of : 1945 Indication: postmenopausal; screening for osteoporosis; height loss; asthma or emphysema; hysterectomy; secondary osteoporosis; Referring Provider: Deisi Acuna Study: Bone densitometry was performed. Exam Date: May 11, 2024 Accession number: [id number] Bone Density: Region BMD T-score Z-score Classification Femoral Neck (Left) 0.651 -1.8 0.5 Osteopenia Total Hip (Left) 0.713 -1.9 0.2 Osteopenia Femoral Neck (Right) 0.599 -2.3 0.0 Osteopenia Total Hip (Right) 0.731 -1.7 0.3 Osteopenia Femoral Neck Mean 0.625 -2.0 0.3 Osteopenia Total Hip Mean 0.722 -1.8 0.2 Osteopenia World Health Organization criteria for BMD impression classify patients as: Normal (T-score at or above -1.0), Osteopenia (T-score between -1.0 and -2.5), or Osteoporosis (T-score at or below -2.5). Clinical Information Provided by Patient: Has secondary osteoporosis Is being treated for osteoporosis Has used the following medications: Vitamin D, Calcium Has the following medical conditions: Asthma or Emphysema, Hysterectomy Patient maximum height was 60 Menopause Age: 54 No regular weight bearing exercise Does not regularly consume dairy products Drinks caffeinated beverages Onset of menses at age 14 Number of children 2 Impression: The patient has low bone mass, based on the Right Femoral Neck T-score. Discussion: It is important to ask patients whether they are taking their medications and to encourage continued and appropriate compliance with their osteoporosis therapies to reduce fracture risk. It is also important to review their risk factors and encourage appropriate calcium and vitamin D intakes, exercise, fall prevention and other lifestyle measures. Follow-Up: Consider a repeat BMD and Vertebral Fracture Assessment (VFA) exam in 2 years or sooner if medically necessary, to reassess this patient's status. Reported by: FRANKLYN on 05/11/2024 1:33:00 PM. Reviewed, dictated and finalized at location [facility]
--- OUTSIDE RECORDS SUMMARY | 2024-05-11 14:11 | XMS_ITS | Clinical Summary ---
Author Organization [facility] [address] [facility] 162 Address [address] [place] [address] Care Team Providers Care Capability Lead Name Role Phone Halima Carson DO Primary Care Provider +1- [phone] Allergies Active Allergy Reactions Criticality Noted Date [...] 01/02/2022 Surgical History Surgery Date Site/Laterality Comments [place] CHOLECYSTECTOMY Cholecystectomy - (Added by TW Conv) [place] ARTHRP KNE CONDYLE&PLATU MEDIAL&LAT COMPARTMENTS Total Knee Arthroplasty - partial (Added by TW Conv) [place] INJ LUMBAR/SACRAL,W/WO CNTRST Corticosteroid Injection Interlaminar Approach [...] on file 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
--- OUTSIDE RECORDS SUMMARY | 2024-05-11 14:11 | XMS_ITS | Referral Summary ---
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
== END 2024-05-11 13:09 | disposition home or self-care (01) ==
LOC: CHSIMG 13:10
PROVIDERS: PCP Family Medicine; Visit Provider Internal Medicine Endocrinology, Diabetes & Metabolism
DX: Z78.0 Asymptomatic menopausal state (principal); M85.89 Other specified disorders of bone density and structure, multiple sites
CPT/HCPCS: 77080

== ENCOUNTER 2024-05-30 11:07 | Outpatient (CLI) | payer MEDICARE, OTHER, SELFPAY ==
--- NOTE | ~2024-05-30 | XR_ITS ---
Clinical Indication: Cough PA and lateral views of the chest: Comparison: 03/24/2024 Findings: The lungs are clear, without evidence of focal consolidation or pleural effusion. Cardiome diastinal silhouette is within normal limits. Bones and soft tissues are unremarkable. Impression: Normal chest. Reviewed, dictated and finalized at location . [employer] Impression: Normal chest.
== END 2024-05-30 11:08 | disposition home or self-care (01) ==
PROVIDERS: PCP Family Medicine; Visit Provider Family Medicine
DX: R05.9 Cough, unspecified (principal)
CPT/HCPCS: 71046

== ENCOUNTER 2024-06-02 08:02 | Outpatient (CLI) | payer MEDICARE, OTHER, SELFPAY ==
[2024-06-02 15:08] LABS: Hematocrit 42.7 % (37.0-47.0); Mean Corpuscular HGB Conc 30.4 g/dl (32-36); Mean Corpuscular Hemoglobin 26.6 pg (26-34); Mean Corpuscular Volume 87.3 fl (80-100); Mean Platelet Volume 9.9 fl (7.4-10.4); Platelet Count Result 339 k/mm3 (150-375); Red Blood Count 4.89 M/mm3 (4.2-5.4); Red Cell Distribution Width 15.1 % (11.5-14.5); White Blood Count 7.7 K/mm3 (4.5-10.0)
[2024-06-02 17:59] LABS: Alanine Aminotransferase 22 U/L (6-35); Albumin Level 4.1 g/dL (3.5-5.1); Alkaline Phosphatase 90 U/L (38-126); Anion Gap 9 mmol/L (4-12); Aspartate Amino Transferase 47 U/L (14-36); Bilirubin,Total 0.4 mg/dL (0.2-1.3); Blood Urea Nitrogen 18 mg/dL (7-17); Calcium 10.3 mg/dL (8.4-10.2); Carbon Dioxide 34 mmol/L (22-30); Chloride 98 mmol/L (98-107); Cholesterol 212 mg/dL (0-200); Estimated Glomerular Filt Rate > 60; Glucose 100 mg/dL (65-110); HDL Direct 35 mg/dL; Potassium 4.5 mmol/L (3.4-5.0); Sodium 141 mmol/L (137-145); Triglycerides 222 mg/dL (<150)
[2024-06-02 18:09] LABS: LDL Cholesterol Direct 125 mg/dL
[2024-06-02 19:18] LABS: Phosphorus 3.6 mg/dL (2.5-4.5)
[2024-06-02 20:35] LABS: Vitamin D 25 Hydroxy > 126.0 ng/mL
[2024-06-03 04:10] LABS: Hemoglobin A1C 6.2 % (<5.7)
[2024-06-03 12:48] LABS: Ionized Calcium 5.5 mg/dL (4.7-5.5)
== END 2024-06-02 08:03 | disposition home or self-care (01) ==
PROVIDERS: PCP Family Medicine; Visit Provider Internal Medicine Endocrinology, Diabetes & Metabolism
DX: E78.2 Mixed hyperlipidemia (principal); I10 Essential (primary) hypertension; E03.9 Hypothyroidism, unspecified; R73.09 Other abnormal glucose; E83.52 Hypercalcemia; M81.0 Age-related osteoporosis without current pathological fracture; Z79.899 Other long term (current) drug therapy
CPT/HCPCS: 36415; 80053; 80061; 82306; 82330; 82607; 83036; 84100; 84443; 85027

== ENCOUNTER 2024-06-30 14:12 | Outpatient (CLI) | payer MEDICARE, OTHER, SELFPAY ==
--- NOTE | ~2024-06-30 | CT_ITS ---
EXAMINATION: CT diagnostic chest wo con DATE: 06/30/2024 14:32 INDICATION: Cough TECHNIQUE: Computed tomography (CT) of the chest was performed without intravenous contrast. The dose -length product was 132.33 mGy-cm. Automated exposure control and iterative reconstruction technique were employed. COMPARISON: CT dated 12/29/2023 FINDINGS: Stable position of retained catheter fragment in the pulmonary artery. No thoracic lymphade nopathy. There is atherosclerosis of the aorta and coronary arteries. No significant pleural or peric ardial effusion. Heart size normal. Upper abdomen is unremarkable. There is a small pleural-based rig ht upper lobe nodule involving the fissure measuring 3 mm, likely benign no pneumothorax. Moderate th oracic spondylosis. There is a stable T9 superior endplate compression fracture. Moderate thoracic sp ondylosis. No acute osseous abnormality. No lytic or blastic lesions.. No endobronchial lesions. Ther e is dependent atelectasis. IMPRESSION: 1. No acute cardiopulmonary disease. 2: Retained catheter fragment in the pulmonary arterial tree. Stable position. Reviewed, dictated and finalized at location A.
--- OUTSIDE RECORDS SUMMARY | 2024-06-30 15:06 | XMS_ITS ---
Author Organization [facility] Address [address] [place] [address] Care Team Providers Care Dye Colorist Dyer Name Role Phone Halima Carson Primary Care Provider UnavailOmar Emery Unavailable [phone] Farhan Buck Unavailable Unavailable ALLERGIES Allergen (clinical [...] and Coronal Reconstruction Reviewed date:02/15/2024 03:04:26 PM Interpretation:medicare/[employer] Performing Lab: Notes/Report: medicare/[employer] REASON FOR VISIT BACK PAIN MEDICATIONS Medication [...] PC [address] [place] [address] 01/15/2024 Omar Sosa Lumbar radiculopathy M54.16 ; [...]
--- OUTSIDE RECORDS SUMMARY | 2024-06-30 15:06 | XMS_ITS | Clinical Summary ---
Author Organization [facility] [address] [facility] 162 Address [address] [place] [address] Care Team Providers Care Equipment Operat0R Name Role Phone Halima Carson DO Primary Care Provider +1- [phone] Allergies Active Allergy Reactions Criticality Noted Date [...] 01/02/2022 Surgical History Surgery Date Site/Laterality Comments [place] CHOLECYSTECTOMY Cholecystectomy - (Added by TW Conv) [place] ARTHRP KNE CONDYLE&PLATU MEDIAL&LAT COMPARTMENTS Total Knee Arthroplasty - partial (Added by TW Conv) [place] INJ LUMBAR/SACRAL,W/WO CNTRST Corticosteroid Injection Interlaminar Approach [...] on file 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 Gender Identity Not on file Sexual Orientation [...] - Tdap) 11/05/1956 Hepatitis B Screening 1962 Pneumococcal vaccine 65+ (1 of 1 - PCV) 1994 Zoster Vaccine (1 of 2) 1994 Well Visit 65+ 2009 Covid-19 Vaccine (3 - season) 12/06/202304/2020, 06/07/2020 Influenza Vaccine (#1) 2023 03/28/2021, 2017 Insurance MEDICARE [employer] MEDICARE [facility] Address: [id number] [place] [address] [employer] Care Teams Equipment Operat0R Relationship Specialty Start Date End Date Halima Carson DO [address] [place] [address] [place] [address] PCP - General Family Medicine 07/24/23
--- OUTSIDE RECORDS SUMMARY | 2024-06-30 15:07 | XMS_ITS | Referral Summary ---
Author Organization [facility] [address] 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
--- OUTSIDE RECORDS SUMMARY | 2024-06-30 15:07 | XMS_ITS ---
Author Organization [facility], Address [address] [place] [address] Care Team Providers Care Program Services Assistant Name Role Phone Halima Carson Primary Care Provider UnavailOmar Emery Unavailable [phone] Farhan Buck Unavailable Unavailable ALLERGIES Allergen (clinical [...] MICHAEL [address] [place] [address] 01/18/2024 Omar Sosa Spondylolisthesis of lumbar region [...]
--- OUTSIDE RECORDS SUMMARY | 2024-06-30 15:07 | XMS_ITS | Patient Health Record ---
Author Organization [facility], Address [address] [facility] [address] [place] [address] Care Team Providers Care Spooler Operator Name Role Phone Halima Carson Primary Care Provider Omar Ewing Unavailable [phone] Farhan Buck Unavailable Unavailable ALLERGIES Allergen (clinical [...] and Coronal Reconstruction Reviewed date:02/15/2024 03:04:26 PM Interpretation:medicare/[employer] Performing Lab: Notes/Report: medicare/[employer] REASON FOR REFERRAL No Information MEDICATIONS Medication [...] Degenerative spondylolisthesis (M43.10) Active confirmed Degenerative spondylolisthesis (6270353) Problem Spondylolisthesis of lumbar region (M43.16) Active confirmed Acquired spondylolisthesis (316214389) Problem DDD (degenerative disc disease), lumbar (M51.36) Active confirmed Degenerative disc disease (59819881) Problem 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) Active confirmed Displacement of lumbar intervertebral disc without myelopathy (20020110) Problem 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 Lumbosacral spondylosis without myelopathy (56654877) Problem Disc displacement, lumbar (M51.26) Active confirmed Displacement of lumbar intervertebral disc without myelopathy (20020110) Problem Sacroiliitis (M46.1) Active confirmed Sacroiliitis (98938041) Problem Spinal enthesopathy, 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) Active confirmed Spinal enthe sopathy (86209687) Problem Osteoporosis (M81.0) Active confirmed Osteoporosis (79348857) Problem Spondylolisthesis (M43.10) Active confirmed Spondylolisthes is (991274749) Problem Degenerative disc disease, lumbar (M51.36) Active confirmed Degeneration of lumbar intervertebral disc (59276575) 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 Lumbosacral spondylosis without myelopathy (60987284) VITAL SIGNS Height 60 in 01/18/2024 Weight 145 lbs 01/18/2024 BMI 28.32 kg/m2 01/18/2024 Encounters Encounter Location Date Provider Diagnosis [facility] [address] [address] 01/15/2024 Omar Sosa Lumbar radiculopathy M54.16 ; Spondylolisthesis of lumbar region M43.16 and Other low back pain M54.59 [facility] [address] [address] 01/18/2024 Omar Sosa Spondylolisthesis of lumbar region [...] Test Name Order Date CBC With Differential/Platelet 1 CBC With Differential/Platelet 2 PT AND PTT 02/20/2021 PT AND PTT 05/31/2021 Chem-Comprehensive 05/31/2021 Chem-Comprehensive 02/20/2021 Insurance Providers Payer Name Payer Address Payer Phone Subscriber Number Group Number Insured Name Patient Relationship to Insured Coverage Start Date Coverage End Date Medicare [place] [address] [address] [place] [address] [id number] Cheri Nath Self - patient is the insured 0 [employer] [address] [place] [address] [id number] Plan N Cheri Nath Self - patient [...]
== END 2024-06-30 14:13 | disposition home or self-care (01) ==
LOC: CHSIMG 14:13
PROVIDERS: PCP Family Medicine; Visit Provider Physician Assistant
DX: J45.909 Unspecified asthma, uncomplicated (principal); R09.89 Other specified symptoms and signs involving the circulatory and respiratory systems; R05.9 Cough, unspecified
CPT/HCPCS: 71250

== ENCOUNTER 2024-09-08 12:08 | Outpatient (CLI) | payer MEDICARE, OTHER, SELFPAY ==
--- NOTE | ~2024-09-08 | XR_ITS ---
MODIFIED ESOPHAGRAM HISTORY: Cough TECHNIQUE: Modified barium esophagram was performed on 09/08/2024. I administered fluoroscopy and perfo rmed the exam with speech pathologist. Patient was seated for lateral fluoroscopic imaging for inges tion of thin liquids, pudding, solids and quantified amounts, followed by thin liquids in uncontrolle d amounts. This was recorded on tape. A single fluoroscopic spot image was also recorded. The DAP for this procedure was 1.183 Gycm2. The amount of fluoroscopy time used during this procedure was 2.2 mi nutes. FINDINGS: Oral stage: Adequate function. Pharyngeal stage: One episode of laryngeal penetration without definitive aspiration on one of 3 aki d trials although a cough reflex was elicited. Cervical/esophageal stage: Adequate function. IMPRESSION: Laryngeal penetration without definitive aspiration. Please correlate with speech pathol ogist findings and specific feeding recommendations. Reviewed, dictated and finalized at location A. IMPRESSION: Laryngeal penetration without definitive aspiration. Please correl ate with speech pathologist findings and specific feeding recommendations.
--- OUTSIDE RECORDS SUMMARY | 2024-09-08 12:51 | XMS_ITS ---
Author Organization [facility] Address [address] [place] [address] Care Team Providers Care Facilities Manager Name Role Phone Halima Carson Primary Care Provider UnavailOmar Emery Unavailable [phone] Farhan Buck Unavailable Unavailable ALLERGIES Allergen (clinical [...] and Coronal Reconstruction Reviewed date:02/15/2024 03:04:26 PM Interpretation:medicare/[employer] Performing Lab: Notes/Report: medicare/[employer] REASON FOR VISIT BACK PAIN MEDICATIONS Medication [...] PC [address] [place] [address] 01/15/2024 Omar Sosa Lumbar radiculopathy M54.16 ; [...]
--- OUTSIDE RECORDS SUMMARY | 2024-09-08 12:51 | XMS_ITS | Clinical Summary ---
Author Organization [facility] [address] [facility] 162 Address [address] [place] [address] Care Team Providers Care Med Admin Name Role Phone Halima Carson DO Primary Care Provider +1- [phone] Allergies Active Allergy Reactions Criticality Noted Date [...] 01/02/2022 Surgical History Surgery Date Site/Laterality Comments [place] CHOLECYSTECTOMY Cholecystectomy - (Added by TW Conv) [place] ARTHRP KNE CONDYLE&PLATU MEDIAL&LAT COMPARTMENTS Total Knee Arthroplasty - partial (Added by TW Conv) [place] INJ LUMBAR/SACRAL,W/WO CNTRST Corticosteroid Injection Interlaminar Approach [...] on file 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
--- OUTSIDE RECORDS SUMMARY | 2024-09-08 12:52 | XMS_ITS ---
Author Organization [facility], Address [address] [place] [address] Care Team Providers Care Religion Department Chair Name Role Phone Halima Carson Primary Care Provider UnavailOmar Emery Unavailable [phone] Farhan Buck Unavailable Unavailable ALLERGIES Allergen (clinical [...] MICHAEL [address] [place] [address] 01/18/2024 Omar Sosa Spondylolisthesis of lumbar region [...]
--- OUTSIDE RECORDS SUMMARY | 2024-09-08 12:52 | XMS_ITS | Referral Summary ---
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
--- OUTSIDE RECORDS SUMMARY | 2024-09-08 12:52 | XMS_ITS | Patient Health Record ---
Author Organization [facility], Address [address] [facility] [address] [place] [address] Care Team Providers Care Topper Press Operator Name Role Phone Halima Carson Primary Care Provider Omar Ewing Unavailable [phone] Farhan Buck Unavailable Unavailable ALLERGIES Allergen (clinical [...] and Coronal Reconstruction Reviewed date:02/15/2024 03:04:26 PM Interpretation:medicare/[employer] Performing Lab: Notes/Report: medicare/[employer] REASON FOR REFERRAL No Information MEDICATIONS Medication [...] Degenerative spondylolisthesis (M43.10) Active confirmed Degenerative spondylolisthesis (3759936) Problem Spondylolisthesis of lumbar region (M43.16) Active confirmed Acquired spondylolisthesis (748858644) Problem DDD (degenerative disc disease), lumbar (M51.36) Active confirmed Degenerative disc disease (42592732) Problem 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) Active confirmed Displacement of lumbar intervertebral disc without myelopathy (20020110) Problem 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 Lumbosacral spondylosis without myelopathy (89197217) Problem Disc displacement, lumbar (M51.26) Active confirmed Displacement of lumbar intervertebral disc without myelopathy (20020110) Problem Sacroiliitis (M46.1) Active confirmed Sacroiliitis (06777482) Problem Spinal enthesopathy, 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) Active confirmed Spinal enthe sopathy (96353230) Problem Osteoporosis (M81.0) Active confirmed Osteoporosis (02901642) Problem Spondylolisthesis (M43.10) Active confirmed Spondylolisthes is (062020617) Problem Degenerative disc disease, lumbar (M51.36) Active confirmed Degeneration of lumbar intervertebral disc (47619235) 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 Lumbosacral spondylosis without myelopathy (06025412) VITAL SIGNS Height 60 in 01/18/2024 Weight 145 lbs 01/18/2024 BMI 28.32 kg/m2 01/18/2024 Encounters Encounter Location Date Provider Diagnosis [facility] [address] [address] 01/15/2024 Omar Sosa Lumbar radiculopathy M54.16 ; Spondylolisthesis of lumbar region M43.16 and Other low back pain M54.59 [facility] [address] [address] 01/18/2024 Omar Sosa Spondylolisthesis of lumbar region [...] Coverage End Date Medicare [place] [address] [address] [place] [address] [id number] Cheri Nath Self - patient is the insured 0 [employer] [address] [place] [phone] [id number] Plan N Cheri Nath Self - patient [...]
--- NOTE | 2024-09-08 13:28 | REHSTMBS ---
Assessment and note entered by Lyric Kowalski EMT I/99 Modified Barium Swallow Evaluation ICD-10 Condition Codes (ST) Dysphagia, unspecified R13.1 Feeding Type Recommended Oral Food Consistency Soft and Bite Size, Level 6 Liquid Consistency Thin (0) ST Clinical Summary The pt was seen for an OP MBS due to c/o of coughing with eating; pt reported that she can also wake in the night with excessive coughing; pt denied CVA, recent pneumonia, or a recent hospitalization. Oral motor function appeared intact and dentition is good. Pt c/o dry mouth which she acknowledged could be from one of her medications but she was not able to state all the medications she is currently on, other than omeprazole and something for high blood pressure. Pt was seated for a lateral view and was presented with two 5 ml trials of thin liquid via a spoon, pudding consistency barium via a spoon, cracker pieces coated with barium pudding via a spoon x3, and uncontrolled thin liquids taken via a cup and a straw. The oral stages were intact/WNL. During the pharyngeal stages the swallow was WNL for thin liquids and the pudding. She was given 3 trials of the cracker. Laryngeal penetration occurred x1 when given a larger amount but it could not be determine if any contents were aspirated; pt coughed. With the 2 other trials, no laryngeal penetration was exhibited. Impression: Mild (intermittent) dysphagia. Recommendations: small bites at a time; soft foods with regular liquids; sit upright with all oral intake.
== END 2024-09-08 12:09 | disposition home or self-care (01) ==
PROVIDERS: PCP Family Medicine; Visit Provider Physician Assistant
DX: J38.7 Other diseases of larynx (principal); R09.89 Other specified symptoms and signs involving the circulatory and respiratory systems; J45.909 Unspecified asthma, uncomplicated
CPT/HCPCS: 92611

== ENCOUNTER 2024-09-20 07:57 | Outpatient (CLI) | payer MEDICARE, OTHER, SELFPAY ==
--- OUTSIDE RECORDS SUMMARY | 2024-09-20 08:04 | XMS_ITS | Patient Health Record ---
Author Organization [facility], Address [address] [place] [address] Care Team Providers Care Vat House Laborer Name Role Phone Halima Carson Primary Care Provider Omar Ewing Unavailable [phone] Farhan Buck Unavailable Unavailable ALLERGIES Allergen (clinical [...] and Coronal Reconstruction Reviewed date:02/15/2024 03:04:26 PM Interpretation:medicare/[employer] Performing Lab: Notes/Report: medicare/[employer] REASON FOR REFERRAL No Information MEDICATIONS Medication [...] Degenerative spondylolisthesis (M43.10) Active confirmed Degenerative spondylolisthesis (4666455) Problem Spondylolisthesis of lumbar region (M43.16) Active confirmed Acquired spondylolisthesis (326324806) Problem DDD (degenerative disc disease), lumbar (M51.36) Active confirmed Degenerative disc disease (55425505) Problem 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) Active confirmed Displacement of lumbar intervertebral disc without myelopathy (20020110) Problem 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 Lumbosacral spondylosis without myelopathy (34561839) Problem Disc displacement, lumbar (M51.26) Active confirmed Displacement of lumbar intervertebral disc without myelopathy (20020110) Problem Sacroiliitis (M46.1) Active confirmed Sacroiliitis (03054060) Problem Spinal enthesopathy, 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) Active confirmed Spinal enthe sopathy (57535363) Problem Osteoporosis (M81.0) Active confirmed Osteoporosis (86027294) Problem Spondylolisthesis (M43.10) Active confirmed Spondylolisthes is (608846420) Problem Degenerative disc disease, lumbar (M51.36) Active confirmed Degeneration of lumbar intervertebral disc (31386647) 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 Lumbosacral spondylosis without myelopathy (40703118) VITAL SIGNS Height 60 in 01/18/2024 Weight 145 lbs 01/18/2024 BMI 28.32 kg/m2 01/18/2024 Encounters Encounter Location Date Provider Diagnosis [facility] [address] [address] 01/15/2024 Omar Sosa Lumbar radiculopathy M54.16 ; Spondylolisthesis of lumbar region M43.16 and Other low back pain M54.59 [facility] [address] [address] 01/18/2024 Omar Sosa Spondylolisthesis of lumbar region [...] will make further recommendations at that time. [facility]/cp 01/18/2024 Spondylolisthesis of lumbar region (ICD-10 - [...] in the office on a p.r.n. basis. [facility]/cp 01/18/2024 Lumbar radiculitis (ICD-10 - M54.16) <b>IMPRESSION:</b> [...] in the office on a p.r.n. basis. [facility]/cp 01/15/2024 Spondylolisthesis of lumbar region (ICD-10 - [...] will make further recommendations at that time. [facility]/cp 01/18/2024 Other low back pain (ICD-10 - [...] in the office on a p.r.n. basis. [facility]/cp 01/15/2024 Other low back pain (ICD-10 - [...] will make further recommendations at that time. [facility]/cp PLAN OF TREATMENT Pending Test Test Name Order Date CBC With Differential/Platelet 2 CBC With Differential/Platelet 1 PT AND PTT 05/31/2021 PT AND PTT 02/20/2021 Chem-Comprehensive 02/20/2021 Chem-Comprehensive 05/31/2021 Insurance Providers Payer Name Payer Address Payer Phone Subscriber Number Group Number Insured Name Patient Relationship to Insured Coverage Start Date Coverage End Date Medicare Mo [address] [address] [place] [address] [id number] Cheri Nath Self - patient is the insured 0 [employer] [address] Medical Claims Dept [place] [phone] [id number] Plan N Cheri Nath Self - patient is the insured MEDICAL (GENERAL) HISTORY Medical History History ICD Code Hypertension Asthma Shortness of breath Thyroid disease Osteopenia Arthritis Back pain HNP Lumbar radiculopathy Spinal stenosis H/O non-union IBS Constipation Denies h/o emotional/psychiatric disorde r Denies h/o drug/chemical dependency Surgical History Surgery Date(Month/Year) Cholecystectomy 2006 R. TKR 2006 R. CTR 2008 R. Knee scope 2009 L. RCR 2019 L3-5 LDL, L4-5 TLIF, posterolateral fusi on 03/26/2021 L4-5 GREGORY, jigar L5 screws, L4 larger repla werner screws 06/11/2021 Pain pump Hospitalization History Reason Date(Month/Year) Has been hospitalized
--- OUTSIDE RECORDS SUMMARY | 2024-09-20 08:04 | XMS_ITS | Referral Summary ---
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
--- OUTSIDE RECORDS SUMMARY | 2024-09-20 08:04 | XMS_ITS ---
Author Organization [facility], Address [address] [place] [address] Care Team Providers Care Paediatric Thoracic Physician Name Role Phone Halima Carson Primary Care Provider UnavailOmar Emery Unavailable [phone] Farhan Buck Unavailable Unavailable ALLERGIES Allergen (clinical [...] MICHAEL [address] [place] [address] 01/18/2024 Omar Sosa Spondylolisthesis of lumbar region [...] under the care of Dr. Mckeon, a mirror painter. She had placement of a spinal cord [...]
--- OUTSIDE RECORDS SUMMARY | 2024-09-20 08:04 | XMS_ITS ---
Author Organization [facility], [facility]HAEL Address [address] [place] [address] Care Team Providers Care Portable Sawmill Operator Name Role Phone Halima Carson Primary Care Provider UnavailOmar Emery Unavailable [phone] Farhan Buck Unavailable Unavailable ALLERGIES Allergen (clinical [...] and Coronal Reconstruction Reviewed date:02/15/2024 03:04:26 PM Interpretation:medicare/[employer] Performing Lab: Notes/Report: medicare/[employer] REASON FOR VISIT BACK PAIN MEDICATIONS Medication [...] PC [address] [place] [address] 01/15/2024 Omar Nobot Lumbar radiculopathy M54.16 ; [...] will make further recommendations at that time. [facility]/cp 01/15/2024 Spondylolisthesis of lumbar region (ICD-10 - [...] will make further recommendations at that time. [facility]/cp 01/15/2024 Other low back pain (ICD-10 - [...] will make further recommendations at that time. [facility]/cp PLAN OF TREATMENT No Information Progress Notes [...] Notes Category Not es Lower back Cheri Nath is a 78-year-old female who presents for [...] was under the care of Dr. Mckeon, painting trades worker, who suggested at that time she undergo [...] continued under the care of Dr. Mckeon, painting trades worker. She had tried a spinal cord stimulator [...] she was evaluated by Dr. Keating at [facility] and was not diagnosed with a fracture. [...]
--- OUTSIDE RECORDS SUMMARY | 2024-09-20 08:04 | XMS_ITS | Clinical Summary ---
Author Organization [facility] [place] [address] [facility] [address] Address [address] [place] [address] Care Team Providers Care Flat Locker Name Role Phone Halima Carson DO Primary Care Provider +1- [phone] Allergies Active Allergy Reactions Criticality Noted Date [...] 01/02/2022 Surgical History Surgery Date Site/Laterality Comments GA CHOLECYSTECTOMY Cholecystectomy - (Added by TW Conv) GA ARTHRP KNE CONDYLE&PLATU MEDIAL&LAT COMPARTMENTS Total Knee Arthroplasty - partial (Added by TW Conv) GA INJ LUMBAR/SACRAL,W/WO CNTRST Corticosteroid Injection Interlaminar Approach [...] on file 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
[2024-09-20 19:46] LABS: Albumin Level 4.4 g/dL (3.5-5.1); Anion Gap 9 mmol/L (4-12); Blood Urea Nitrogen 25 mg/dL (7-17); Calcium 10.7 mg/dL (8.4-10.2); Carbon Dioxide 32 mmol/L (22-30); Chloride 100 mmol/L (98-107); Estimated Glomerular Filt Rate 45; Glucose 95 mg/dL (65-110); Phosphorus 2.9 mg/dL (2.5-4.5); Potassium 4.9 mmol/L (3.4-5.0); Sodium 141 mmol/L (137-145)
[2024-09-20 20:00] LABS: Parathyroid Intact 17.2 pg/mL (14.5-75.2)
[2024-09-21 13:08] LABS: Vitamin D 25 Hydroxy 97.9 ng/mL
[2024-09-22 14:24] LABS: Ionized Calcium 5.6 mg/dL (4.7-5.5)
== END 2024-09-20 07:58 | disposition home or self-care (01) ==
LOC: ANHGOSHLAB 07:58
PROVIDERS: PCP Family Medicine; Visit Provider Internal Medicine Endocrinology, Diabetes & Metabolism
DX: E55.9 Vitamin D deficiency, unspecified (principal); M81.0 Age-related osteoporosis without current pathological fracture
CPT/HCPCS: 36415; 80069; 82306; 82330; 83970

== ENCOUNTER 2024-11-30 16:50 | Emergency (ER) | payer MEDICARE, OTHER, SELFPAY ==
--- OUTSIDE RECORDS SUMMARY | 2024-01-15 03:00 | XMS_ITS ---
Author Organization [facility] Address [address] [place] [address] Care Team Providers Care Mold Repairer Name Role Phone Halima Carson Primary Care Provider UnavailOmar Emery Unavailable [phone] Farhan Buck Unavailable Unavailable ALLERGIES Allergen (clinical [...] and Coronal Reconstruction Reviewed date:02/15/2024 03:04:26 PM Interpretation:medicare/[facility] Performing Lab: Notes/Report: [facility]are[facility] REASON FOR VISIT BACK PAIN MEDICATIONS Medication [...] [facility] [address] [place] [address] 01/15/2024 Omar Sosa Lumbar radiculopathy M54.16 ; Spondylolisthesis of lumbar region M43.16 and Other low back pain M54.59 ASSESSMENTS Encounter Date Diagnosis Assessment Notes Treatment Notes Treatment Clinical Notes 01/15/2024 Lumbar radiculopathy (ICD-10 - M54.16) 01/15/2024 Spondylolisthesis of lumbar region (ICD-10 - M43.16) 01/15/2024 Other low back pain (ICD-10 - M54.59) PLAN OF TREATMENT No Information Progress Notes * Examination Category Sub-Category Detail Notes General Examination GENERAL: Patient is a n [...]
--- OUTSIDE RECORDS SUMMARY | 2024-01-18 07:10 | XMS_ITS ---
Author Organization [facility] Address [address] [place] [address] Care Team Providers Care Crown Ironer Name Role Phone Halima Carson Primary Care Provider UnavailOmar Emery Unavailable [phone] Farhan Buck Unavailable Unavailable ALLERGIES Allergen (clinical drug ingredient) Drug/Non Drug Allergy documented on EMR Reaction Allergy Type Onset Date Status Substance with sulfonamide structure and antibacterial mechanism of action (substance) Sulfa Antibiotics Unknown Drug Allergy Active REASON FOR VISIT test Result MEDICATIONS Medication SIG (Take, Route, Frequency, Duration) Notes Start Date End Date Status Omeprazole Active DULoxetine HCl Activ e Memantine HCl Active clonazePAM Active Levothyroxine Sodium Active Alendronate Sodium A ctive amLODIPine Besylate Active Aspirin 81 Active D3 Active Carvedilol Active Potassium Chloride A ctive Tylenol Active Gabapentin 400 Mg QID Active cloNIDine HCl Active Furosemide Active Losartan Potassium-HCTZ Active VITAL SIGNS BMI 28.32 kg/m2 01/18/2024 Height 60 in 01/18/2024 Weight 145 lbs 01/18/2024 Encounters Encounter Location Date Provider Diagnosis [facility] [address] [place] [address] 01/18/2024 Omar Sosa Spondylolisthesis of lumbar region M43.16 ; Lumbar radiculitis M54.16 and Other low back pain M54.59 ASSESSMENTS Encounter Date Diagnosis Assessment Notes Treatment Notes Treatment Clinical Notes 01/18/2024 Spondylolisthesis of lumbar region (ICD-10 - M43.16) 01/18/2024 Lumbar radiculitis (ICD-10 - M54.16) 01/18/2024 Other low back pain (ICD-10 - M54.59) [...] evidence of exces sive bruising or bleeding CT Scan Imaging Studies CT LUMBAR SPINE: CT stud y through the lumbar spine reveals evidence of spondylolisthesis at L4-5 measuring 13 to 14 mm with solid fusion to the level. This is unchanged from the prior study performed on 10/09/2022. Nerve stimulator leads are entering the spinal canal at T12-L1 are noted. Mild scoliosis at the thoracolumbar junction is noted. There are severe degenerative changes at L3-4 noted with 4 to 5 mm anterolisthesis. Right L3 pars defect. Foraminal stenosis without significant spinal canal stenosis. There is disc bulging at L5-S1. Severe bilateral foraminal stenosis secondary to the spondylolisthesis, but there is no evidence of dorsal bone involving the neural foramina. This material was removed at the time of surgical intervention, so the stenotic change is associated with the spondylolisthesis
--- NOTE | ~2024-11-30 | XR_ITS ---
EXAMINATION: XR chest 2V, 11/30/2024 17:10 CDT HISTORY: foreign body aspiration-- broken tooth COMPARISON: No comparisons available. Technique: 2 views obtained. Findings: The lungs are clear, no effusion. No pneumothorax. Heart is normal size. Mediastinal and hilar contours are within normal limits. Bony thorax no acute abnormality. Impression: No acute cardiopulmonary abnormality. Reviewed, dictated and finalized at location A. Impression: No acute cardiopulmonary abnormality.
[2024-11-30 16:53] VITALS: BP 153/69; PULSE 65; RESP 18; TEMP 36.6; O2SAT 93
--- OUTSIDE RECORDS SUMMARY | 2024-11-30 16:53 | XMS_ITS | Clinical Summary ---
Author Organization [facility] [place] [address] [facility] [address] [place] [address] Care Team Providers Care Pharmacy District Manager Name Role Phone Halima Carson DO Primary Care Provider +1- [phone] Allergies Active Allergy Reactions Criticality Noted Date [...] 01/02/2022 Surgical History Surgery Date Site/Laterality Comments ME CHOLECYSTECTOMY Cholecystectomy - (Added by TW Conv) ME ARTHRP KNE CONDYLE&PLATU MEDIAL&LAT COMPARTMENTS Total Knee Arthroplasty - partial (Added by TW Conv) ME INJ LUMBAR/SACRAL,W/WO CNTRST Corticosteroid Injection Interlaminar Approach [...] on file 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 Gender Identity Not on file Sexual Orientation [...] Depression Screening 1944 Fall Risk Assessment 1944 Osteoporosis Screening-Bone Density Scan 1944 DTaP/Tdap/Td Vaccine (1 - Tdap) 11/05/1955 Hepatitis B Screening 1962 Pneumococcal vaccine 65+ (1 of 1 - PCV) 1994 Zoster Vaccine (1 of 2) 1994 Well Visit 65+ 2009 Covid-19 Vaccine (3 - season) 12/06/202304/2020, 06/07/2020 Influenza Vaccine (#1) 2024 03/28/2021, 2017 Insurance MEDICARE [employer] MEDICARE [facility] Address: [address] [address] [employer] Care Teams Pharmacy District Manager Relationship Specialty Start Date End Date Halima Carson DO [address] [place] [address] [place] [address] PCP - General Family Medicine 07/24/23
--- OUTSIDE RECORDS SUMMARY | 2024-11-30 16:53 | XMS_ITS | Patient Health Record ---
Author Organization [facility], Address [address] [place] [address] Care Team Providers Care Home Care Associate Name Role Phone Halima Carson Primary Care Provider Omar Ewing Unavailable [phone] Farhan Buck Unavailable Unavailable ALLERGIES Allergen (clinical [...] and Coronal Reconstruction Reviewed date:02/15/2024 03:04:26 PM Interpretation:medicare/[employer] Performing Lab: Notes/Report: medicare/[employer] REASON FOR REFERRAL No Information MEDICATIONS Medication [...] Degenerative spondylolisthesis (M43.10) Active confirmed Degenerative spondylolisthesis (8042130) Problem Spondylolisthesis of lumbar region (M43.16) Active confirmed Acquired spondylolisthesis (143870937) Problem DDD (degenerative disc disease), lumbar (M51.36) Active confirmed Degenerative disc disease (61370151) Problem 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) Active confirmed Displacement of lumbar intervertebral disc without myelopathy (20020110) Problem 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 Lumbosacral spondylosis without myelopathy (54087664) Problem Disc displacement, lumbar (M51.26) Active confirmed Displacement of lumbar intervertebral disc without myelopathy (20020110) Problem Sacroiliitis (M46.1) Active confirmed Sacroiliitis (29135572) Problem Spinal enthesopathy, 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) Active confirmed Spinal enthe sopathy (91781710) Problem Osteoporosis (M81.0) Active confirmed Osteoporosis (09553106) Problem Spondylolisthesis (M43.10) Active confirmed Spondylolisthes is (967790290) Problem Degenerative disc disease, lumbar (M51.36) Active confirmed Degeneration of lumbar intervertebral disc (08332103) 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 Lumbosacral spondylosis without myelopathy (53693433) VITAL SIGNS Height 60 in 01/18/2024 Weight 145 lbs 01/18/2024 BMI 28.32 kg/m2 01/18/2024 Encounters Encounter Location Date Provider Diagnosis [facility] [address] [address] 01/15/2024 Omar Sosa Lumbar radiculopathy M54.16 ; Spondylolisthesis of lumbar region M43.16 and Other low back pain M54.59 [facility] [address] [address] 01/18/2024 Omar Sosa Spondylolisthesis of lumbar region [...] Coverage End Date Medicare Mo [address] [address] [place] [address] [id number] Cheri Nath Self - patient is the insured 0 [employer] [address] [place] [address] [id number] Plan N Cheri Nath Self - patient [...]
--- NOTE | 2024-11-30 16:54 | ED_ITS ---
HPI - General Adult General Chief complaint: Skin/Abscess/Foreign Body Stated complaint: sent by PCP, possibly swallowed part of crown Time Seen by Provider: 11/30/24 16:53 Source: patient Mode of arrival: ambulatory Limitations: no limitations History of Present Illness HPI narrative: 79-year-old female with a history of hypertension, diastolic dysfunction, dyslipidemia, RLS, hypothyroidism, dysphagia with questionable aspiration, asthma, chronic pain was having a dental procedure. she was having removal of the right lower 2nd premolar. After extraction of the tooth the patient felt foreign body sensation in her throat. the patient accidentally swallowed the object potentially be part of the crown of the root. Her dentist is concerned that she could have aspirated a foreign body. The patient did not have any coughing spells of worsening shortness of breath after this episode. no chest pain. minimal bleeding from the site of extraction of right lower 2nd premolar Onset (ago): hour(s) ( 1 hour ago) Associated symptoms: denies other symptoms Related Data Home Medications ?Medication ?Instructions ?Recorded ?Confirmed ?Last Taken ?Type aspirin 81 mg tablet,delayed 81 mg PO DAILY 11/07/19 0 09/16/24 11/07/19 History release (Adult Low Dose Aspirin) vitamin B complex 1 cap PO DAILY 06/02/2309/04 Unknown History cholecalciferol (vitamin D3) 125 125 mcg PO DAILY 06/2809/16/24 Unknown History mcg (5,000 unit) capsule duloxetine 30 mg capsule,delayed 30 mg PO DAILY 09/16/24 Unknown History release Allergies Allergy/AdvReac Type Severity Reaction Status Date / Time Iodinated Contrast Media Allergy Intermediate HIVES, Verified 11/30/24 16:59 TONGUE SWELLED Sulfa (Sulfonamide Allergy Unknown tongue Verified 11/30/24 16:59 Antibiotics) swelling Review of Systems Review of Systems: All systems reviewed & are unremarkable except as noted in HPI and below PMFSH Past Medical History Medical History Asthma Hypothyroidism (acquired) Restless legs syndrome Essential (primary) hypertension Mixed hyperlipidemia Surgical History Surgical History History of back surgery History of repair of rotator cuff Hx of tonsillectomy History of appendectomy H/O arthroscopy of right knee History of carpal tunnel release History of knee replacement Hx of cholecystectomy Family History Family History Mother Family history of glaucoma Hypertension Family history of kidney disease Cerebrovascular accident Family history of coronary artery disease Sibling Malignant neoplasm of prostate Family history of coronary artery disease Family history of cardiovascular disease Family history of kidney disease Grandparent Family history of coronary artery disease Family history of cardiovascular disease Social History Social History Social History: Caffeine-daily Smoking status: Never smoker Alcohol intake: never Substance use: never Substance use type: does not use Lack of Transportation: No Lack of Food: Never True Current Housing: I Have Housing Concerned About Future Housing: No Difficulty Paying Gas/Electric Bills: No Difficulty Paying for Meds: No Currently Unemployed: No Education: High School Diploma/GED Difficulty w/ Childcare or Family Care: No Living arrangements: with family Occupation/Education: retired Gender identity (if verbalized by the patient): Female Sexual Orientation (if Verbalized by the Patient): Straight or Heterosexual Spiritual care concerns: No Agree to blood products: Yes Exam Narrative: open saturation of 93% on room air with a respiratory rate of 18 Const: General: no acute distress Orientation/consciousness: patient oriented x3 Limitations: no limitations HENMT: Head: normal to inspection Ears: external ears normal Face/Nose/Sinus: Normal external nose present Face and sinus: normal facial exam Mouth: Yes Normal oral and palatal mucosa present Teeth and gingiva: abnormal tooth and associated gingiva ( bleeding from right lower 2nd premolar. multiple missing teeth) Throat: posterior oropharynx normal Eyes: Conjunctivae: conjunctivae normal Pupils: Equal, round and reactive pupils present EOM: EOMs intact bilaterally Direct Ophthalmoscopy: no photophobia Neck: Neck: normal visual inspection, no lymphadenopathy and no meningeal signs Chest: Chest palpation & inspection: normal inspection of the chest Resp: Effort & Inspection: normal respiratory effort Auscultation: rhonchi and diminished lung sounds Cardio: Rate: regular rate Rhythm: regular rhythm GI: GI Palp: Yes Soft to palpation Auscultation: normal bowel sounds Other: no tenderness/ rigidity /rebound. : General: Yes no CVA tenderness Back/Spine/Pelvis: Back: no CVA tenderness Skin: General skin exam: normal color Rashes: no rashes Wounds: no wounds Neuro: General: patient oriented x3, moves all extremities, no meningeal signs, no focal motor deficits and CN's II-XI intact bilaterally Cranial nerves: Yes Nystagmus not present Speech: normal speech Extrem: General: normal to inspection and no clubbing, cyanosis or edema Psych: Mental Status: mental status grossly normal Affect: normal affect Attitude: cooperative Course Course Emergency Course: Questionable foreign body aspiration during dental extraction-- chest x-ray does not show any obvious foreign body/atelectasis/consolidation. offered to get a CT scan of neck and chest. Patient refused a CT scan. She would like some time to decide. Will have a follow-up with a primary care physician. Explained to her the symptoms of aspiration pneumonia. Advised to look for fever, cough with mucopurulent sputum, shortness of breath and chest pain Vital Signs Vital signs: Vital Signs Temperature 36.6 C 11/30/24 16:53 Pulse Rate 65 11/30/24 16:53 Respiratory Rate 18 11/30/24 16:53 Blood Pressure 153/69 H 11/30/24 16:53 Pulse Oximetry 93 11/30/24 16:53 Oxygen Delivery Room Air 11/30/24 16:53 Temperature 36.6 C 11/30/24 16:53 Pulse Rate 65 11/30/24 16:53 Respiratory Rate 20 11/30/24 16:58 Blood Pressure 153/69 H 11/30/24 16:53 Pulse Oximetry 93 11/30/24 16:53 Oxygen Delivery Room Air 11/30/24 16:53 Medical Decision Making [facility] Narrative Medical decision making narrative: questionable aspiration Differential Diagnosis Differential Diagnosis: pneumonia, aspiration Medical Records Medical records reviewed: Yes I reviewed the external patient's medical records. Vital Signs Vital Signs: Vital Signs Temperature 36.6 C 11/30/24 16:53 Pulse Rate 65 11/30/24 16:53 Respiratory Rate 18 11/30/24 16:53 Blood Pressure 153/69 H 11/30/24 16:53 Pulse Oximetry 93 11/30/24 16:53 Oxygen Delivery Room Air 11/30/24 16:53 Temperature 36.6 C 11/30/24 16:53 Pulse Rate 65 11/30/24 16:53 Respiratory Rate 20 11/30/24 16:58 Blood Pressure 153/69 H 11/30/24 16:53 Pulse Oximetry 93 11/30/24 16:53 Oxygen Delivery Room Air 11/30/24 16:53 Lab Data Lab results reviewed: Yes I reviewed the patient's lab results. Discharge Plan Discharge Clinical Impression: Aspiration of foreign body Qualifiers: Encounter type: initial encounter Qualified Code(s): T17.908A - Unspecified foreign body in respiratory tract, part unspecified causing other injury, initial encounter Patient Disposition: Home Condition: Stable Instructions: Antibiotic Form, Aspiration Pneumonia (DC) Patient Language: Portuguese Prescriptions: No Action vitamin B complex Capsule 1 cap PO DAILY duloxetine 30 mg capsule,delayed release(DR/EC) 30 mg PO DAILY Rx Instructions: take 15 mg daily cholecalciferol (vitamin D3) 125 mcg (5,000 unit) capsule 125 mcg PO DAILY aspirin [Adult Low Dose Aspirin] 81 mg Tablet,Delayed Release (Dr/Ec) 81 mg PO DAILY clonidine HCl 0.1 mg tablet See Rx Instructions .ROUTE .COMPLEX Qty: 180 1RF Dose Instruction: TAKE 1 TABLET TWICE A DAY Rx Instructions: TAKE 1 TABLET TWICE A DAY memantine 5 mg tablet 5 mg PO QAM Qty: 90 1RF clonazepam 1 mg tablet 2 mg PO QHS PRN (Reason: insomnia) Qty: 180 1RF alendronate 70 mg tablet 70 mg PO WEEKLY Qty: 12 1RF levothyroxine 88 mcg tablet 88 mcg PO DAILY Qty: 90 1RF losartan-hydrochlorothiazide 100-12.5 mg tablet 1 tablet PO DAILY Qty: 90 1RF omeprazole 40 mg capsule,delayed release(DR/EC) 80 mg PO DAILY Qty: 180 1RF carvedilol 12.5 mg tablet 12.5 mg PO Q12H Qty: 180 1RF Rx Instructions: must administer with a meal/food gabapentin 400 mg capsule 1,200 mg PO DAILY Qty: 270 1RF atorvastatin [Lipitor] 10 mg tablet 10 mg PO QHS Qty: 90 1RF Follow-up/Referrals: Lowell Chavira MD [Primary Care Provider, Internal Medicine] Time of Disposition: 17:52
[2024-11-30 16:58] VITALS: RESP 20
--- OUTSIDE RECORDS SUMMARY | 2024-11-30 17:30 | XMS_ITS | Clinical Summary ---
Author Organization [facility] [place] [address] [facility] [address] Address [address] [place] [address] Care Team Providers Care Drafter Structural Name Role Phone Halima Carson DO Primary Care Provider [phone]- [phone] Allergies Active Allergy Reactions Criticality Noted Date [...] 01/02/2022 Surgical History Surgery Date Site/Laterality Comments PA CHOLECYSTECTOMY Cholecystectomy - (Added by TW Conv) PA ARTHRP KNE CONDYLE&PLATU MEDIAL&LAT COMPARTMENTS Total Knee Arthroplasty - partial (Added by TW Conv) PA INJ LUMBAR/SACRAL,W/WO CNTRST Corticosteroid Injection Interlaminar Approach [...] on file 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
--- NOTE | 2024-11-30 18:05 | PC.NURSE ---
PT REFUSED CT OF CHEST AND NECK PT GIVEN RISKS PT AWARE
[2024-11-30 18:10] VITALS: BP 157/67; PULSE 64; RESP 18; TEMP 36.3; O2SAT 94
== END 2024-11-30 18:12 | disposition home or self-care (01) ==
PROVIDERS: Emergency Provider Internal Medicine Critical Care Medicine; PCP Internal Medicine
DX: T17.908A Unspecified foreign body in respiratory tract, part unspecified causing other injury, initial encounter (principal); I10 Essential (primary) hypertension; E78.5 Hyperlipidemia, unspecified; E03.9 Hypothyroidism, unspecified; E78.2 Mixed hyperlipidemia; W44.8XXA Other foreign body entering into or through a natural orifice, initial encounter
CPT/HCPCS: 71046; 99283

== ENCOUNTER 2025-01-24 08:38 | Outpatient (CLI) | payer MEDICARE, OTHER, SELFPAY ==
--- NOTE | ~2025-01-24 | US_ITS ---
Clinical history:Palpable mass along the anterior aspect of the upper arm near the right axilla which has increased in size. EXAM:Ultrasound soft tissue extremity right TECHNIQUE:Multiple static grayscale images and color Doppler images were obtained of the area of palpable concern along the anterior upper right arm near the right axilla. Comparisons:None available FINDINGS: There is a 4.2 x 3.7 x 1.3 cm well-circumscribed hypoechoic mass in the area of palpable concern along the right anterior upper arm/right axilla. No internal color Doppler flow. No posterior acoustic shadowing. The finding is wider than tall. IMPRESSION: 1.There is a 4.2 cm well-circumscribed hypoechoic mass in the area of palpable concern along the right anterior upper arm/right axilla. The finding has increased in size. The finding may represent a lipoma. Other etiologies are possible. A biopsy is recommended for further assessment. If a biopsy is not performed, a follow-up study in 3 months is recommended. Reviewed, dictated and finalized at location Q. IMPRESSION: 1.There is a 4.2 cm well-circumscribed hypoechoic mass in the area of palpable concern along the right anterior upper arm/right axilla. The finding has increa sed in size. The finding may represent a lipoma. Other etiologies are possible. A biopsy is recommended for further assessment. If a biopsy is not performed, a follow-up study in 3 months is recommended.
== END 2025-01-24 08:39 | disposition home or self-care (01) ==
LOC: GOSHIMG 08:38
PROVIDERS: PCP Family Medicine; Visit Provider Family Medicine
DX: R22.31 Localized swelling, mass and lump, right upper limb (principal)
CPT/HCPCS: 76882

== ENCOUNTER 2025-01-24 08:51 | Outpatient (CLI) | payer MEDICARE, OTHER, SELFPAY ==
--- OUTSIDE RECORDS SUMMARY | 2024-01-15 03:00 | XMS_ITS ---
Author Organization [facility] Address [address] [place] [address] Care Team Providers Care Molding Engineer Name Role Phone Halima Carson Primary Care Provider UnavailOmar Emery Unavailable [phone] Farhan Buck Unavailable Unavailable ALLERGIES Allergen (clinical drug ingredient) Drug/Non Drug Allergy documented on EMR Reaction Allergy Type Onset Date Status Substance with sulfonamide structure and antibacterial mechanism of action (substance) Sulfa Antibiotics Unknown Drug Allergy Active RESULTS Component Value Reference Range Notes X ray : Lumbar spine 5 views , AP, Lateral, Spot, Flexion and Extension Reviewed date:01/15/2024 10:02:41 AM Interpretation:814 Performing Lab: Notes/Report: 814 CT Lumbar Spine with Sagitta l and Coronal Reconstruction Reviewed date:02/15/2024 03:04:26 PM Interpretation:medicare/[facility] Performing Lab: Notes/Report: medicare/[facility] REASON FOR VISIT BACK PAIN MEDICATIONS Medication SIG (Take, Route, Frequency, Duration) Notes Start Date End Date Status Gabapentin 400 Mg QID Active Levothyroxine Sodium Active Omeprazole Active DULoxetine HCl Activ e Losartan Potassium-HCTZ Active Memantine HCl Active clonazePAM Active Aspirin 81 Active D3 Active Carvedilol Active Furosemide Active Potassium Chloride A ctive amLODIPine Besylate Active cloNIDine HCl Active Alendronate Sodium A ctive VITAL SIGNS BMI 28.32 kg/m2 01/15/2024 Height 60 in 01/15/2024 Weight 145 lbs 01/15/2024 Encounters Encounter Location Date Provider Diagnosis [facility] [address] [place] [address] 01/15/2024 Omar Nobot Lumbar radiculopathy M54.16 ; Spondylolisthesis of lumbar region M43.16 and Other low back pain M54.59 ASSESSMENTS Encounter Date Diagnosis Assessment Notes Treatment Notes Treatment Clinical Notes Section Notes 01/15/2024 Lumbar radiculopathy (ICD-10 - M54.16) <b>IMPRESSION:</b> Back pain. Chronic radiculopathy. Prior lumbar decompressive laminectomy and fusion. 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 Status post revision surgery L4-5. Persisting grade I to II spondylolisthesis at L4-5. <b>PLAN:</b> It is my recommendation the patient continue on her present medications. She will undergo a CT with reconstructions through the lumbar spine and follow up in the office upon completion of the study. I will make further recommendations at that time. PRISON/cp 01/15/2024 Spondylolisthesis of lumbar region (ICD-10 - M43.16) <b>IMPRESSION:</b> Back pain. Chronic radiculopathy. Prior lumbar decompressive laminectomy and fusion. 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 Status post revision surgery L4-5. Persisting grade I to II spondylolisthesis at L4-5. <b>PLAN:</b> It is my recommendation the patient continue on her present medications. She will undergo a CT with reconstructions through the lumbar spine and follow up in the office upon completion of the study. I will make further recommendations at that time. PRISON/cp 01/15/2024 Other low back pain (ICD-10 - M54.59) <b>IMPRESSION:</b> Back pain. Chronic radiculopathy. Prior lumbar decompressive laminectomy and fusion. 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 Status post revision surgery L4-5. Persisting grade I to II spondylolisthesis at L4-5. <b>PLAN:</b> It is my recommendation the patient continue on her present medications. She will undergo a CT with reconstructions through the lumbar spine and follow up in the office upon completion of the study. I will make further recommendations at that time. PRISON/cp PLAN OF TREATMENT No Information Progress Notes * Examination Category Sub-Category Detail Notes Category Not es General Examination GENERAL: Patient is a n alert and cooperative female who moves about the room cautiously. She is able to get out of her wheelchair by herself NECK: Exam reveals tension and mild to moderate kyphosis. ROM of the cervical spine is reduced in all directions by 35%. Spurling's test negative HEART: Regular rate and rhy thm LUNGS: Clear to auscultatio n in all arana ABDOMEN: No tenderness to pal pation, bowel sounds present all four quadrants NEUROLOGIC: Upper extremity neur ologic examination reveals symmetric DTR's, intact sensation, 5+/5+ motor strength. Erum's sign negative. Lower extremity neurologic examination reveals decreased sensation involving the left anterior thigh. Muscle strength testing, however, is 5+, which is tested on two occasions to see if there is any fatigue or giving way and none is noted, especially true with hip flexors and quadriceps musculature. Reflexes are symmetric. There is no gross asymmetry in muscle girth noted bilaterally. No clonus, negative Babinski's sign involving the lower extremities SKIN: No evidence of skin rashes or dermal lesions. There is evidence of right anterior/inferior abdominal protrusion, which is the site of her pain pump. The incision over the area is well-healed MUSCULOSKELETAL: Thoracic exam reveal s no tenderness to palpation. No spasm. Lumbar exam reveals a well-healed back incision, nontender to the touch. ROM of the lumbar spine reveals forward flexion to 65 degrees, extension to 25 degrees, side-bending to 35 degrees PSYCHIATRIC: Mood and affect appe ar normal HEENT: No masses, PERRLA, E OM intact, no nasal drainage, no lymphadenopathy JOINTS: Hip log roll testing is negative. Hip ROM is near normal. SYLVAIN test is negative HEMATOLOGIC: No evidence of exces sive bruising or bleeding Plain X-ray Imaging Studies LUMBAR SPINE X-RAYS: Five view x-rays through the lumbar spine reveal evidence of fusion at the L4-5 level with some degree of kyphosis. There is anterolisthesis of L4 on L5 grade I to grade II. Mild anterolisthesis of L3-4. Facet degeneration L1 to S1. Well-preserved disc space height at L5-S1. In reviewing these x-rays compared to the prior films from October of 2022 there is no significant interval change, position of vertebral body of L4 and L5. There may be a mild amount of lucency surrounding the left L4 screw, but all in all there is no evidence of implant failure or dislodgement. There is evidence of suspected bony fusion History and Physical Notes * HPI (History of Present Illness) Category Sub-Category Detail Notes Category Not es Lower back Cheri aNth is a 78-year-old female who presents for evaluation today, 01/15/2024. She is a former patient of mine who has not been seen since 10/09/2022. Historically, she had undergone prior lumbar decompressive laminectomy L3 to L5 with TLIF L4-5 on 03/26/2021. On 06/11/2021, she underwent revision surgery at that level due to suspected nonunion and screw loosening. Following the surgical procedure the patient was followed for months. She continued to complain of some back pain, but her symptoms did improve over time. She was last seen in the office on 04/14/2022. She reported at that time she was doing better. She was using Tylenol and Ultram. I recommended a CT be performed, which revealed evidence of persisting spondylolisthesis at L4-5 with interval improvement in the fusion. Given her poor propensity for tissue healing, conservative measures were recommended. She was seen on 10/09/2022 and was under the care of Dr. Mckeon, boat painter, who suggested at that time she undergo placement of a spinal cord stimulator. I noted at that time she had evidence of persisting grade I to II spondylolisthesis at L4-5. The fusion graft appeared to be incorporating in the interbody space. Mild lucency surrounding the left L5 screw. I recommended she undergo CT with reconstructions through the lumbar spine, which was performed. That study was performed, which revealed there was some degree of incorporation of bone graft around the surgical site, some lucency surrounding the left L4 screw. After review of the study, I suggested there was evidence of a stable fusion at the level. I suggested she continue under the care of Dr. Mckeon, pain management, since the patient had no real interest in considering other surgical intervention. I explained to her at that time the only surgical procedure would be surgery through an anterior approach to revise the surgical site, but there was no guarantee that would resolve her complaints. She presents today stating she had continued under the care of Dr. Mckeon, boat painter. She had tried a spinal cord stimulator in June or July of 2023, but states it did not work. She states the device was removed and a pain pump was inserted in November of 2023. She states the pain pump does not seem to help moderate her complaints either. She complains of back pain with radiation to the left leg to the left ankle. She states her left leg becomes tired. She reports she had two falls in February where she had lost her footing and fallen. She denied the left lower extremity had given way. She denies any bowel or bladder dysfunction. She reports she also fell several times two weeks ago and apparently injured her left thumb in a fall on the 04 of January. She states she was evaluated by Dr. Keating at [facility] and was not diagnosed with a fracture. She uses her wheeled walker to ambulate. If she is going to walk a long distance, she usually uses a wheelchair. At the present time, she describes her complaints as severe, sharp, cramping pain with weakness in her legs to the ankle. Symptoms are worsened with standing, walking, bending and tend to be improved with lying down resting. There has been some loss of bowel or bladder function, but she denies any hi incontinence. She states her ability to walk long distances is limited to one block
--- OUTSIDE RECORDS SUMMARY | 2024-01-18 07:10 | XMS_ITS ---
Author Organization [facility], Address [address] [place] [address] Care Team Providers Care Rn Licensed Practical Name Role Phone Halima Carson Primary Care Provider UnavailOmar Emery Unavailable [phone] Farhan Buck Unavailable Unavailable ALLERGIES Allergen (clinical [...] [facility] [address] [place] [address] 01/18/2024 Omar Sosa Spondylolisthesis of lumbar region M43.16 ; Lumbar radiculitis M54.16 and Other low back pain M54.59 ASSESSMENTS Encounter Date Diagnosis Assessment Notes Treatment Notes Treatment Clinical Notes Section Notes 01/18/2024 Spondylolisthesis of lumbar region (ICD-10 - M43.16) <b>IMPRESSION:</b> Back pain. Chronic radiculopathy. Prior lumbar decompressive laminectomy and fusion. 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 Status post revision surgery L4-5. Persisting grade I to II spondylolisthesis at L4-5. <b>PLAN:</b> I had a long discussion with the patient and her . I explained to them I do not have a simple, straight forward procedure I could recommend to address her complaints. Given the fact the fusion is stable, I cannot recommend a complex anterior surgical procedure to address her complaints without placing her at significant risk with no guarantee her complaints would be improved. I recommend she continue under the care of Dr. Mckeon. It is hopeful he can modify her treatment regimen to offer some improvement in her complaints. I would recommend she continue using an assist device whenever she ambulates. Continue on her home exercise program to maintain strength and endurance. In performing turns, she needs to make the turns slowly in order to minimize the risk of losing her balance. She should continue on vitamin D and Fosamax. I will see her back in the office on a p.r.n. basis. [facility]/cp 01/18/2024 Lumbar radiculitis (ICD-10 - M54.16) <b>IMPRESSION:</b> Back pain. Chronic radiculopathy. Prior lumbar decompressive laminectomy and fusion. 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 Status post revision surgery L4-5. Persisting grade I to II spondylolisthesis at L4-5. <b>PLAN:</b> I had a long discussion with the patient and her . I explained to them I do not have a simple, straight forward procedure I could recommend to address her complaints. Given the fact the fusion is stable, I cannot recommend a complex anterior surgical procedure to address her complaints without placing her at significant risk with no guarantee her complaints would be improved. I recommend she continue under the care of Dr. Mckeon. It is hopeful he can modify her treatment regimen to offer some improvement in her complaints. I would recommend she continue using an assist device whenever she ambulates. Continue on her home exercise program to maintain strength and endurance. In performing turns, she needs to make the turns slowly in order to minimize the risk of losing her balance. She should continue on vitamin D and Fosamax. I will see her back in the office on a p.r.n. basis. [facility]/cp 01/18/2024 Other low back pain (ICD-10 - M54.59) <b>IMPRESSION:</b> Back pain. Chronic radiculopathy. Prior lumbar decompressive laminectomy and fusion. 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 Status post revision surgery L4-5. Persisting grade I to II spondylolisthesis at L4-5. <b>PLAN:</b> I had a long discussion with the patient and her . I explained to them I do not have a simple, straight forward procedure I could recommend to address her complaints. Given the fact the fusion is stable, I cannot recommend a complex anterior surgical procedure to address her complaints without placing her at significant risk with no guarantee her complaints would be improved. I recommend she continue under the care of Dr. Mckeon. It is hopeful he can modify her treatment regimen to offer some improvement in her complaints. I would recommend she continue using an assist device whenever she ambulates. Continue on her home exercise program to maintain strength and endurance. In performing turns, she needs to make the turns slowly in order to minimize the risk of losing her balance. She should continue on vitamin D and Fosamax. I will see her back in the office on a p.r.n. basis. [facility]/cp PLAN OF TREATMENT No Information Progress Notes [...] stenotic change is associated with the spondylolisthesis History and Physical Notes * HPI (History of Present Illness) Category Sub-Category Detail Notes Category Not es Lower back Cheri manjarrez resents for reevaluation today, 01/18/2024. She continues to complain of back pain with radiation to the left lower extremity. She is under the care of Dr. Mckeon, a painting contractor. She had placement of a spinal cord stimulator in June or July of 2023, which she states did not work and it was removed. She underwent placement of a pain pump in November of 2023, which she states does not seem to help moderate her complaints either. She complains of back pain with radiation to the left lower extremity and episodic periods of falling. She was evaluated in the office and no clear muscle strength deficits were noted involving the lower extremities. There was no significant wasting of the left lower extremity. Imaging studies in the office revealed the fusion at L4-5 appeared to be complete with no interval change compared to prior studies from October of 2022. I recommended she undergo a repeat CT study through the lumbar spine to try to clarify the origin of her complaints
--- OUTSIDE RECORDS SUMMARY | 2025-01-24 09:35 | XMS_ITS | Clinical Summary ---
Author Organization [facility] [place] [place] [address] [facility] [address] Address [address] [place] [address] Care Team Providers Care Sales Representative Advertising Name Role Phone Halima Carson DO Primary Care Provider [phone]- [phone] Allergies Active Allergy Reactions Criticality Noted Date [...] 01/02/2022 Surgical History Surgery Date Site/Laterality Comments [place] CHOLECYSTECTOMY Cholecystectomy - (Added by TW Conv) [place] ARTHRP KNE CONDYLE&PLATU MEDIAL&LAT COMPARTMENTS Total Knee Arthroplasty - partial (Added by TW Conv) [place] INJ LUMBAR/SACRAL,W/WO CNTRST Corticosteroid Injection Interlaminar Approach [...] on file 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
--- OUTSIDE RECORDS SUMMARY | 2025-01-24 09:35 | XMS_ITS | Patient Health Record ---
Author Organization [facility], Address [address] [place] [address] Care Team Providers Care Oyster Unloader Name Role Phone Halima Carson Primary Care Provider UnavailOmar Emery Unavailable [phone] Farhan Buck Unavailable Unavailable ALLERGIES Allergen (clinical drug ingredient) Drug/Non Drug Allergy documented on EMR Reaction Allergy Type Onset Date Status Substance with sulfonamide structure and antibacterial mechanism of action (substance) Sulfa Antibiotics Unknown Drug Allergy Active REASON FOR REFERRAL No Information MEDICATIONS Medication [...] Degenerative spondylolisthesis (M43.10) Active confirmed Degenerative spondylolisthesis (6868726) Problem Spondylolisthesis of lumbar region (M43.16) Active confirmed Acquired spondylolisthesis (605767313) Problem DDD (degenerative disc disease), lumbar (M51.36) Active confirmed Degenerative disc disease (93515708) Problem 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) Active confirmed Displacement of lumbar intervertebral disc without myelopathy (56001641) Problem 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 Lumbosacral spondylosis without myelopathy (40348343) Problem Disc displacement, lumbar (M51.26) Active confirmed Displacement of lumbar intervertebral disc without myelopathy (29132093) Problem Sacroiliitis (M46.1) Active confirmed Sacroiliitis (47933185) Problem Spinal enthesopathy, 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) Active confirmed Spinal enthe sopathy (88588329) Problem Osteoporosis (M81.0) Active confirmed Osteoporosis (35353733) Problem Spondylolisthesis (M43.10) Active confirmed Spondylolisthes is (900899301) Problem Degenerative disc disease, lumbar (M51.36) Active confirmed Degeneration of lumbar intervertebral disc (02769481) 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 Lumbosacral spondylosis without myelopathy (17272809) PLAN OF TREATMENT Pending Test Test Name Order Date CBC With Differential/Platelet 1 CBC With Differential/Platelet 2 PT AND PTT 02/20/2021 PT AND PTT 05/31/2021 Chem-Comprehensive 05/31/2021 Chem-Comprehensive 02/20/2021 Insurance Providers Payer Name Payer Address Payer Phone Subscriber Number Group Number Insured Name Patient Relationship to Insured Coverage Start Date Coverage End Date Medicare Mo [address] [address] Health [place] [phone] [id number] Cheri Nath Self - patient is the insured 0 [employer] [address] [place] [address] [id number] Plan N Cheri Nath Self - patient [...]
[2025-01-24 19:08] LABS: Hematocrit 40.5 % (37.0-47.0); Hemoglobin 12.1 g/dL (12.0-15.0); Mean Corpuscular HGB Conc 29.9 g/dl (32-36); Mean Corpuscular Hemoglobin 27.3 pg (26-34); Mean Corpuscular Volume 91.2 fl (80-100); Platelet Count Result 296 k/mm3 (150-375); Red Blood Count 4.44 M/mm3 (4.2-5.4); White Blood Count 8.4 K/mm3 (4.5-10.0)
[2025-01-24 19:30] LABS: Alanine Aminotransferase 14 U/L (6-35); Albumin Level 3.7 g/dL (3.5-5.1); Alkaline Phosphatase 84 U/L (38-126); Anion Gap 7 mmol/L (4-12); Aspartate Amino Transferase 42 U/L (14-36); Bilirubin,Total 0.4 mg/dL (0.2-1.3); Blood Urea Nitrogen 13 mg/dL (7-17); Calcium 8.9 mg/dL (8.4-10.2); Carbon Dioxide 32 mmol/L (22-30); Chloride 98 mmol/L (98-107); Cholesterol 211 mg/dL (0-200); Estimated Glomerular Filt Rate > 60; Glucose 95 mg/dL (65-110); HDL Direct 36 mg/dL; Potassium 4.2 mmol/L (3.4-5.0); Sodium 137 mmol/L (137-145); Total Protein 6.8 g/dL (6.3-8.2); Triglycerides 248 mg/dL (<150)
[2025-01-24 19:47] LABS: Free T4 Free Thyroxine 1.68 ng/dL (0.78-2.19)
[2025-01-24 20:02] LABS: Thyroid Stimulating Hormone 0.535 uIU/mL (0.465-4.680)
[2025-01-31 08:08] LABS: 1,25-Dihydroxy, Vitamin D-2 <10 pg/mL (.); 1,25-Dihydroxy, Vitamin D-3 74 pg/mL (.); Total 1,25-Dihydroxy,Vitamin D 77 pg/mL (.)
== END 2025-01-24 08:52 | disposition home or self-care (01) ==
PROVIDERS: PCP Family Medicine; Visit Provider Family Medicine
DX: E78.2 Mixed hyperlipidemia (principal); I10 Essential (primary) hypertension; E03.9 Hypothyroidism, unspecified; R63.5 Abnormal weight gain; E55.9 Vitamin D deficiency, unspecified; Z79.899 Other long term (current) drug therapy
CPT/HCPCS: 36415; 80053; 80061; 82652; 84439; 84443; 85027